=== PATIENT | female | born 1965 | race Caucasian/White ===

== ENCOUNTER 2016-10-13 05:57 | Inpatient (IN) | payer MEDICAID ==
[~2016-10-13 05:57] MED LIST: Lactated Ringers 1,000 ML IV SCH; Lidocaine 1%/Sod Bicarbonate in NS 8.4% 1 ML Syringe IV PRN; Sodium Chloride 0.9% 10 ML Syringe FLUSH PRN
[2016-10-13] MEDS ORDERED: ceFAZolin 1 GM Vial ONE ×2 (06:30→07:47)
[2016-10-13] MEDS ORDERED: Sennosides 8.6 MG Tab PO PRN (06:40)
[2016-10-13] MEDS ORDERED: diphenhydrAMINE 50 MG/ML SDV IVPUSH PRN ×2 (06:40→08:44)
[2016-10-13] MEDS ORDERED: Magnesium Hydroxide 400 MG/5 ML Susp 30 ML Cup PO PRN (06:40)
[2016-10-13] MEDS ORDERED: Naloxone 0.4 MG/ML SDV IVPUSH PRN (06:40)
[2016-10-13] MEDS ORDERED: Ondansetron 4 MG/2 ML SDV IVPUSH PRN ×2 (06:40→08:44)
[2016-10-13] MEDS ORDERED: Bisacodyl 5 MG Tab PO PRN (06:40)
--- NOTE | 2016-10-13 06:59 | PCM.PREANE ---
Preanesthetic Assessment - Procedure Proposed Procedure: Left TKA - Anesthesia/Transfusion/Family Hx Anesthesia History: Prior Anesthesia Without Reaction Type of Anesthesia Reaction: Unknown Family History of Anesthesia Reaction: No Transfusion History: No Prior Transfusion(s) Type of Transfusion Reactions: Reports: Unknown - Review of Systems General: No Symptoms Pulmonary: No Symptoms Cardiovascular: Other (HTN) Neurological: No Symptoms Other: Reports: Depression - Physical Assessment NPO Status Date: 10/12/16 NPO Status Time: 23:00 O2 Sat by Pulse Oximetry: 95 Respiratory Rate: 17 Vital Signs: Last Vital Signs Temp 36.7 C 10/13/16 06:30 Pulse 86 10/13/16 06:30 Resp 17 10/13/16 06:30 BP 145/103 H 10/13/16 06:30 Pulse Ox 95 10/13/16 06:30 Height: 1.7 m Weight: 98.43 kg ASA Class: 2 Mental Status: Alert & Oriented x3 Airway Class: Mallampati = 3 Dentition: Reports: Normal Dentition Thyro-Mental Finger Breadths: 3 Mouth Opening Finger Breadths: 3 ROM/Head Extension: Full Lungs: Clear to auscultation, Normal respiratory effort Cardiovascular: Regular Rate, Regular Rhythm - Allergies Allergies/Adverse Reactions: Allergies Allergy/AdvReac Type Severity Reaction Status Date / Time bee venom protein (honey bee) Allergy Anaphylactic Verified 10/09/16 15:05 Shock - Blood Blood Available: No Product(s) Available: None - Acknowledgements Anesthesia Type Planned: Spinal Pt an Appropriate Candidate for the Planned Anesthesia: Yes Alternatives and Risks of Anesthesia Discussed w Pt/Guardian: Yes Pt/Guardian Understands and Agrees with Anesthesia Plan: Yes PreAnesthesia Questionnaire Cardiovascular History: Reports: Hypertension Respiratory History: Reports: Pneumonia, Recurrent, Other (See Below) Other Respiratory History: cough, mediastinal cyst, lung mass Gastrointestinal History: Reports: None CONDUCTOR FREIGHT History: Reports: , Other (See Below) Other OB/BYN History: hot flashes, menopausal, decreased libido Musculoskeletal History: Reports: Arthritis, Other (See Below) Other Musculoskeletal History: chronic pain, hammertoe L foot, multiple joint pain, low back pain, Neurological History: Reports: None Psychiatric History: Reports: Anxiety, Depression, Other (See Below) Other Psychiatric History: fatigue, insomnia Endocrine/Metabolic History: Reports: Vitamin D Deficiency Hematologic History: Reports: None Immunologic History: Reports: None Oncologic (Cancer) History: Reports: None Dermatologic History: Reports: None - Infectious Disease History Infectious Disease History: Reports: Influenza - Past Surgical History HEENT Surgical History: Reports: Other (See Below) Other HEENT Surgeries/Procedures: simple excision of lingual cyst Respiratory Surgical History: Reports: Thoracotomy Female Surgical History: Reports: Hysterectomy Musculoskeletal Surgical History: Reports: Other (See Below) Other Musculoskeletal Surgeries/Procedures:: left knee ACL and meniscus repair. right foot surgery. - SUBSTANCE USE Smoking Status *Q: Current Every Day Smoker (2-3 cig 20years) Tobacco Use Within Last Twelve Months: Cigarettes Second Hand Smoke Exposure: Yes Days Per Week of Alcohol Use: 4 Number of Drinks Per Day: 3 Total Drinks Per Week: 12 Recreational Drug Use History: No - HOME MEDS Home Medications: Home Meds Multivitamin [One Daily Multivitamin] 1 tab PO DAILY 09/14/13 [History] Albuterol Sulfate [Proair Hfa] 1 - 2 puff INH Q4H PRN 10/09/16 [History] Aspirin/Acetaminophen/Caffeine [Migraine Formula Caplet] 1 tab PO TID PRN [History] Cholecalciferol (Vitamin D3) [Vitamin D3] 50,000 unit PO MO 10/09/16 [History] Folic Acid 1 mg PO DAILY 10/09/16 [History] Naproxen 500 mg PO BID PRN 10/09/16 [History] Venlafaxine HCl [Venlafaxine ER] 37.5 mg PO BID 10/09/16 [History] - CURRENT (IN HOUSE) MEDS Current Meds: Current Medications Aspirin (Ecotrin) 325 mg PO BID [facility] Bisacodyl (Dulcolax) 5 mg PO DAILY PRN PRN Reason: Constipation Morphine Sulfate 8 mg/Epinephrine HCl 0.3 mg/Cefuroxime Sodium 750 mg/Ketorolac Tromethamine 30 mg/Sodium Chloride 27.9 ml 0 mg .XX ONETIME ONE Stop: 10/13/16 14:44 Cyclobenzaprine HCl (Flexeril) 10 mg PO TID PRN PRN Reason: Spasms Diphenhydramine HCl (Benadryl) 25 mg IVPUSH Q4H PRN PRN Reason: Nausea Docusate Sodium (Colace) 100 mg PO BID [facility] Famotidine (Pepcid) 20 mg PO Q12H [facility] Lactated Ringer's (Ringers, Lactated) 1,000 mls @ 125 mls/hr IV ASDIRECTED [facility] Cefazolin Sodium/Dextrose 2 gm (/ Premix) 50 mls @ 100 mls/hr IV Q8H [facility] Stop: 10/13/16 23:29 Lidocaine/Sodium Bicarbonate (Buffered Lidocaine 1% In Ns 8.4%) 0.25 ml IV ONETIME PRN PRN Reason: Prior to IV Start Magnesium Hydroxide (Milk Of Magnesia) 30 ml PO BID PRN PRN Reason: Constipation Morphine Sulfate (Morphine) 2 mg IVPUSH Q2H PRN PRN Reason: Breakthrough Pain Multivitamins (Thera) 1 each PO WITHBREAKFAST [facility] Naloxone HCl (Narcan) 0.1 mg IVPUSH Q5M PRN PRN Reason: Oversedation Stop: 10/13/16 06:56 Ondansetron HCl (Zofran) 4 mg IVPUSH Q6H PRN PRN Reason: Nausea/Vomiting Oxycodone/Acetaminophen (Percocet 325-5 Mg) 1 - 2 tab PO Q4H PRN PRN Reason: Pain Senna (Senna) 8.6 mg PO BID PRN PRN Reason: Constipation Sodium Chloride (Saline Flush) 10 ml FLUSH ASDIRECTED PRN PRN Reason: Keep Vein Open Discontinued Medications Bupivacaine HCl (Marcaine 0.25%) Confirm Administered Dose 30 ml .ROUTE .STK- MED ONE Stop: 10/13/16 06:30 Cefazolin Sodium (Ancef) Confirm Administered Dose 2 gm .ROUTE .STK-MED ONE Stop: 10/13/16 06:30 Cefazolin Sodium (Ancef) Confirm Administered Dose 2 gm .ROUTE .STK-MED ONE Stop: 10/13/16 06:31 Lactated Ringer's (Ringers, Lactated) 1,000 mls @ 125 mls/hr IV ASDIRECTED [facility] Iodine (Iodine 2% Mild Tincture) Confirm Administered Dose 30 ml .ROUTE .STK- MED ONE Stop: 10/13/16 06:30 Lidocaine/Sodium Bicarbonate (Buffered Lidocaine 1% In Ns 8.4%) 0.25 ml IV ONETIME PRN PRN Reason: Prior to IV Start Sodium Chloride (Saline Flush) 10 ml FLUSH ASDIRECTED PRN PRN Reason: Keep Vein Open Tranexamic Acid (Cyklokapron) Confirm Administered Dose 1,000 mg .ROUTE .[facility] ONE Stop: 10/13/16 06:30
[2016-10-13] MEDS ORDERED: ceFAZolin 2 GM in Premix Bag 1 BAG IV SCH (07:00)
[2016-10-13] MEDS ORDERED: Propofol 200 MG/20 ML SDV ONE ×4 (07:16→08:53)
[2016-10-13] MEDS ORDERED: fentaNYL 100 MCG/2 ML SDV ONE ×2 (07:16→08:32)
[2016-10-13] MEDS ORDERED: Morphine PF 10 MG/10 ML SDV ONE (07:16)
[2016-10-13] MEDS ORDERED: Midazolam 1 MG/ML 2 ML SDV ONE (07:16)
[2016-10-13] MEDS ORDERED: ePHEDrine/Normal Saline 25 MG/5 ML Syringe ONE (08:10)
[2016-10-13] MEDS: Iodine/Sodium Iodide 2% Tincture 30 ML Bottle ONE ×2 (08:15→08:33)
[2016-10-13] MEDS: ceFAZolin 1 GM Vial ONE ×2 (08:15→08:37)
[2016-10-13] MEDS: Morphine 8 MG, EPINEPHrine 0.3 MG, Cefuroxime 750 MG, Ketorolac 30 MG, Sodium Chloride ... ONE ×10 (08:16→08:41)
[2016-10-13] MEDS: Bupivacaine 0.25% 30 ML SDV ONE ×2 (08:16→08:42)
[2016-10-13] MEDS ORDERED: Phenylephrine/Normal Saline 100 MCG/ML 10 ML Syringe ONE (08:42)
[2016-10-13] MEDS ORDERED: Meperidine PF 50 MG/ML Syringe IVPUSH PRN (08:44)
[2016-10-13] MEDS ORDERED: fentaNYL 100 MCG/2 ML SDV IVPUSH PRN (08:44)
[2016-10-13] MEDS ORDERED: CHOLECALCIFEROL 50000 UNIT PO SCH (09:00)
[2016-10-13] MEDS ORDERED: Albuterol 6.7 GM Inhaler INH PRN (09:14)
--- NOTE | 2016-10-13 09:28 | PCM.POSTAN ---
POST ANESTHESIA ASSESSMENT - MENTAL STATUS Mental Status: alert, oriented - VITAL SIGNS Pulse Rate: 75 SaO2: 100 Resp Rate: 18 Blood Pressure: 112/63 Temperature: 36.6 C - RESPIRATORY Respiratory Status: respiratory rate WNL, airway patent, O2 saturation stable, supplemental oxygen - CARDIOVASCULAR CV Status: pulse rate WNL, blood pressure stable - GASTROINTESTINAL GI Status: no symptoms - PAIN Pain Score: 0 - POST OP HYDRATION Hydration Status: adequate & stable
[2016-10-13] MEDS: Acetaminophen/oxyCODONE 325-5 MG Tab PO PRN ×4 (11:51→23:53)
[2016-10-13] MEDS: Cyclobenzaprine 10 MG Tab PO PRN ×2 (11:53→18:07)
[2016-10-13] MEDS ORDERED: Pneumococcal Polyvalent-23 Vaccine 0.5 ML SDV IM ONE (12:00)
--- NOTE | 2016-10-13 13:11 | CR ---
Left knee: AP and lateral views of the left knee were obtained. Comparison: Previous left knee study of 05/19/16. Knee prosthesis is seen. Components are aligned. Underlying bony structures are intact. Soft tissue air and air within the joint is seen which is compatible with the surgical procedure. Impression: 1. Satisfactory appearance of recently placed left knee prosthesis. Diagnostic code #2
--- NOTE | 2016-10-13 13:38 | PCM.CONSN ---
- General Info Date of Service: 10/13/16 Admission Dx/Problem (Free Text): 51 year old middle aged female with bilateral knee pain. Today is s/p left total knee arthroplasty. Complains of mild pain, has recent taken a pain med for relief. Hospitalist service will help manage general medical needs. Functional Status: Reports: pain controlled, tolerating diet, ambulating, urinating - Review of Systems General: Reports: No Symptoms HEENT: Reports: no symptoms Pulmonary: Reports: no symptoms Cardiovascular: Reports: No Symptoms Gastrointestinal: Reports: No symptoms Genitourinary: Reports: no symptoms Musculoskeletal: Reports: no symptoms Skin: Reports: no symptoms Neurological: Reports: No Symptoms Psychiatric: Reports: no symptoms - Patient Data Vitals - most recent: Last Vital Signs Temp 36.6 C 10/13/16 11:57 Pulse 99 10/13/16 11:57 Resp 15 10/13/16 11:57 BP 135/83 10/13/16 11:57 Pulse Ox 100 10/13/16 12:00 Weight - most recent: 98.43 kg I&O - last 24 hours: Intake & Output 10/12/16 10/13/16 10/13/16 22:59 06:59 14:59 Intake Total 700 Output Total 550 Balance 150 Med Orders - Current: Current Medications Albuterol (Proventil Hfa) 1 - 2 gm INH Q4H PRN PRN Reason: Shortness of Breath Aspirin (Ecotrin) 325 mg PO BID [facility] Bisacodyl (Dulcolax) 5 mg PO DAILY PRN PRN Reason: Constipation Cyclobenzaprine HCl (Flexeril) 10 mg PO TID PRN PRN Reason: Spasms Last Admin: 10/13/16 11:53 Dose: 10 mg Diphenhydramine HCl (Benadryl) 25 mg IVPUSH Q4H PRN PRN Reason: Nausea Last Admin: 10/13/16 09:43 Dose: 25 mg Docusate Sodium (Colace) 100 mg PO BID [facility] Famotidine (Pepcid) 20 mg PO Q12H [facility] Folic Acid (Folic Acid) 1 mg PO DAILY [facility] Lactated Ringer's (Ringers, Lactated) 1,000 mls @ 125 mls/hr IV ASDIRECTED [facility] Stop: 10/13/16 23:00 Last Admin: 10/13/16 06:45 Dose: 125 mls/hr Cefazolin Sodium/Dextrose 2 gm (/ Premix) 50 mls @ 100 mls/hr IV Q8H [facility] Stop: 10/14/16 07:29 Magnesium Hydroxide (Milk Of Magnesia) 30 ml PO BID PRN PRN Reason: Constipation Morphine Sulfate (Morphine) 2 mg IVPUSH Q2H PRN PRN Reason: Breakthrough Pain Ondansetron HCl (Zofran) 4 mg IVPUSH Q6H PRN PRN Reason: Nausea/Vomiting Oxycodone/Acetaminophen (Percocet 325-5 Mg) 1 - 2 tab PO Q4H PRN PRN Reason: Pain Last Admin: 10/13/16 11:51 Dose: 2 tab Cholecalciferol [ Vitamin D3] 50,000 Unit 0 each PO Mo@0900 [facility] Senna (Senna) 8.6 mg PO BID PRN PRN Reason: Constipation Venlafaxine HCl (Effexor Xr) 75 mg PO DAILY [facility] Discontinued Medications Bupivacaine HCl (Marcaine 0.25%) Confirm Administered Dose 30 ml .ROUTE .STK- MED ONE Stop: 10/13/16 06:30 Last Admin: 10/13/16 08:42 Dose: 30 ml Cefazolin Sodium (Ancef) Confirm Administered Dose 2 gm .ROUTE .STK-MED ONE Stop: 10/13/16 06:30 Last Admin: 10/13/16 08:37 Dose: 2 gm Cefazolin Sodium (Ancef) Confirm Administered Dose 2 gm .ROUTE .STK-MED ONE Stop: 10/13/16 06:31 Cefazolin Sodium (Ancef) Confirm Administered Dose 2 gm .ROUTE .STK-MED ONE Stop: 10/13/16 07:48 Morphine Sulfate 8 mg/Epinephrine HCl 0.3 mg/Cefuroxime Sodium 750 mg/Ketorolac Tromethamine 30 mg/Sodium Chloride 27.9 ml 0 mg .XX ONETIME ONE Stop: 10/13/16 07:46 Last Admin: 10/13/16 08:41 Dose: 788.3 mg Diphenhydramine HCl (Benadryl) 25 mg IVPUSH Q6H PRN PRN Reason: Pruritis Stop: 10/13/16 12:00 Ephedrine Sulfate (Ephedrine In Ns) Confirm Administered Dose 25 mg .ROUTE .STK- MED ONE Stop: 10/13/16 08:11 Fentanyl (Sublimaze) Confirm Administered Dose 100 mcg .ROUTE .STK-MED ONE Stop: 10/13/16 07:17 Fentanyl (Sublimaze) Confirm Administered Dose 100 mcg .ROUTE .STK-MED ONE Stop: 10/13/16 08:33 Fentanyl (Sublimaze) 50 mcg IVPUSH Q5M PRN PRN Reason: Pain Stop: 10/13/16 09:00 Lactated Ringer's (Ringers, Lactated) 1,000 mls @ 125 mls/hr IV ASDIRECTED [facility] Cefazolin Sodium/Dextrose 2 gm (/ Premix) 50 mls @ 100 mls/hr IV Q8H [facility] Stop: 10/13/16 23:29 Iodine (Iodine 2% Mild Tincture) Confirm Administered Dose 30 ml .ROUTE .STK- MED ONE Stop: 10/13/16 06:30 Last Admin: 10/13/16 08:33 Dose: 18 ml Lidocaine/Sodium Bicarbonate (Buffered Lidocaine 1% In Ns 8.4%) 0.25 ml IV ONETIME PRN PRN Reason: Prior to IV Start Lidocaine/Sodium Bicarbonate (Buffered Lidocaine 1% In Ns 8.4%) 0.25 ml IV ONETIME PRN PRN Reason: Prior to IV Start Stop: 10/13/16 12:00 Last Admin: 10/13/16 06:45 Dose: 0.25 ml Meperidine HCl (Demerol) 12.5 mg IVPUSH ONETIME PRN PRN Reason: Shivering Stop: 10/13/16 12:00 Midazolam HCl (Versed 1 Mg/Ml) Confirm Administered Dose 2 mg .ROUTE .STK-MED ONE Stop: 10/13/16 07:17 Morphine Sulfate (Duramorph Pf) Confirm Administered Dose 10 mg .ROUTE .STK-MED ONE Stop: 10/13/16 07:17 Multivitamins (Thera) 1 each PO WITHBREAKFAST [facility] Naloxone HCl (Narcan) 0.1 mg IVPUSH Q5M PRN PRN Reason: Oversedation Stop: 10/13/16 06:56 Non-Formulary Medication (Multivitamin) 1 tab PO DAILY [facility] Ondansetron HCl (Zofran) 4 mg IVPUSH ONETIME PRN PRN Reason: Nausea/Vomiting Stop: 10/13/16 12:00 Phenylephrine HCl (Phenylephrine In Ns 100 Mcg/Ml) Confirm Administered Dose 1 mg .ROUTE .STK-MED ONE Stop: 10/13/16 08:43 Pneumococcal Polyvalent Vaccine (Pneumovax 23) 0.5 ml IM .ONCE ONE Stop: 10/13/16 12:01 Propofol (Diprivan 20 Ml) Confirm Administered Dose 400 mg .ROUTE .STK-MED ONE Stop: 10/13/16 07:17 Propofol (Diprivan 20 Ml) Confirm Administered Dose 200 mg .ROUTE .STK-MED ONE Stop: 10/13/16 08:20 Propofol (Diprivan 20 Ml) Confirm Administered Dose 200 mg .ROUTE .STK-MED ONE Stop: 10/13/16 08:39 Propofol (Diprivan 20 Ml) Confirm Administered Dose 200 mg .ROUTE .STK-MED ONE Stop: 10/13/16 08:54 Sodium Chloride (Saline Flush) 10 ml FLUSH ASDIRECTED PRN PRN Reason: Keep Vein Open Sodium Chloride (Saline Flush) 10 ml FLUSH ASDIRECTED PRN PRN Reason: Keep Vein Open Stop: 10/13/16 12:00 Tranexamic Acid (Cyklokapron) Confirm Administered Dose 1,000 mg .ROUTE .STK- MED ONE Stop: 10/13/16 06:30 Last Admin: 10/13/16 08:51 Dose: 1,000 mg - Exam Quality Assessment: DVT prophylaxis General: alert, oriented HEENT: Pupils equal, Pupils reactive, EOMI Neck: supple, trachea midline, no JVD Lungs: Clear to auscultation, Normal respiratory effort Cardiovascular: Regular Rate, Regular Rhythm Abdomen: bowel sounds present, soft, no tenderness, no distension (Female) Exam: Deferred Back Exam: Normal Inspection Extremities: no edema, normal pulses Skin: warm, dry Wound/Incisions: dressing dry and intact Neurological: no new focal deficit, normal speech Psy/Mental Status: alert, normal affect, normal mood Consult PN Assessment/Plan POD#: 0 Procedures: Procedures ANTINUCLEAR ANTIBODIES (02/29/16) ASSAY ALKALINE PHOSPHATASE (03/03/16) ASSAY OF CREATININE (07/27/13) ASSAY OF FERRITIN (10/03/16) ASSAY OF FREE THYROXINE (02/29/16) ASSAY OF IRON (09/03/16) ASSAY OF PREALBUMIN (10/03/16) ASSAY OF SERUM ALBUMIN (10/03/16) ASSAY OF TRANSFERRIN (09/03/16) ASSAY THYROID STIM HORMONE (09/03/16) BLOOD TYPING SEROLOGIC ABO (07/27/13) BLOOD TYPING SEROLOGIC RH(D) (07/27/13) C-REACTIVE PROTEIN (02/29/16) CCP ANTIBODY (02/29/16) CHEST X-RAY 2VW FRONTAL&LATL (10/03/16) CHORIONIC GONADOTROPIN ASSAY (07/27/13) COMPLETE CBC AUTOMATED (10/03/16) COMPLETE CBC W/AUTO DIFF WBC (07/07/16) COMPREHEN METABOLIC PANEL (07/07/16) CT THORAX W/DYE (07/07/16) CULTURE SCREEN ONLY (06/30/16) EMERGENCY DEPT VISIT (05/21/16) FLUOROSCOPE EXAMINATION (09/15/13) INFLUENZA ASSAY W/OPTIC (06/30/16) LYME DISEASE ANTIBODY (03/03/16) METABOLIC PANEL TOTAL CA (10/03/16) MR-STAPH DNA AMP PROBE (10/02/16) PROTHROMBIN TIME (10/03/16) RBC ANTIBODY SCREEN (07/27/13) RBC SED RATE AUTOMATED (02/29/16) REMOVAL OF ANKLE/HEEL LESION (09/15/13) REPAIR BLADDER DEFECT (07/29/13) REPAIR OF LEG TENDON EACH (09/15/13) RHEUMATOID FACTOR TEST QUAL (02/29/16) ROUTINE VENIPUNCTURE (09/03/16) STREP A AG IA (06/30/16) THROMBOPLASTIN TIME PARTIAL (10/03/16) TISSUE EXAM BY PATHOLOGIST (07/29/13) URINALYSIS AUTO W/SCOPE (10/03/16) VAGINAL HYSTERECTOMY (07/29/13) VITAMIN B-12 (09/03/16) VITAMIN D 25 HYDROXY (09/03/16) X-RAY EXAM L-S SPINE 2/3 VWS (02/29/16) X-RAY EXAM OF KNEE 3 (05/19/16) X-RAY EXAM OF PELVIS (02/29/16) (1) Depression SNOMED Code(s): 36267776 Code(s): F32.9 - MAJOR DEPRESSIVE DISORDER, SINGLE EPISODE, UNSPECIFIED Current Visit: Yes (2) Hypertension SNOMED Code(s): 81306640 Code(s): I10 - ESSENTIAL (PRIMARY) HYPERTENSION Current Visit: Yes (3) Vitamin D deficiency SNOMED Code(s): 91600188 Code(s): E55.9 - VITAMIN D DEFICIENCY, UNSPECIFIED Current Visit: Yes (4) Lung mass SNOMED Code(s): 841015845 Code(s): R91.8 - OTHER NONSPECIFIC ABNORMAL FINDING OF LUNG FIELD Current Visit: Yes Problem List Initiated/Reviewed/Updated: Yes Plan: Impression: Left knee pain, S/P left knee arthroplasty POD 0 Chronic Obesity Vitamin D Deficiency Hypertension History of right sided lung mass Plan: Pain mgt Home meds Daily Labs Pulmonary toilet/IS as directed for post op use DVT prophylaxis Pt/OT/SW consult post op
[2016-10-13] MEDS: ceFAZolin 2 GM in Premix Bag 1 BAG IV SCH ×2 (15:11→23:23)
[2016-10-13] MEDS: Famotidine 20 MG Tab PO SCH ×2 (19:01→19:14)
[2016-10-13] MEDS: Morphine 2 MG/ML Syringe IVPUSH PRN ×2 (19:02→22:56)
[2016-10-13] MEDS: Docusate Sodium 100 MG Cap PO SCH (21:41)
--- NOTE | 2016-10-13 22:08 | PCM.OPNOTE ---
- General Post-Op/Procedure Note Date of Surgery/Procedure: 10/13/16 Operative Procedure(s): left knee deep hardware removal with left total knee arthroplasty Pre Op Diagnosis: left knee deep hardware with knee osteoarthrosis Post-Op Diagnosis: Same Anesthesia Technique: Local, MAC, Spinal Primary Surgeon: Washington Rossi Anesthesia Provider: Ravindra Long Veneer Jointer Helper: Angela Woods Veneer Jointer Helper: Nickie Bruce EBL in mLs: 350 Complications: None Condition: Good Free Text/Narrative:: Intake & Output 10/13/16 10/13/16 10/13/16 06:59 14:59 22:59 Intake Total 700 1250 Output Total 1075 200 Balance -375 1050
--- NOTE | 2016-10-13 22:52 | OR ---
DATE OF OPERATION: 10/13/2016 SURGEON: Washington Rossi MD PREOPERATIVE DIAGNOSIS: Left knee deep hardware with knee osteoarthrosis. POSTOPERATIVE DIAGNOSIS: Left knee deep hardware with knee osteoarthrosis. OPERATION PERFORMED: Left knee deep hardware removal with total knee osteoarthrosis. ANESTHESIA: Local MAC and spinal. ANESTHESIA PROVIDER: Ravindra Long. CAB DRIVER: Angela Woods PA-C and Nickie Bruce LPN. ESTIMATED BLOOD LOSS: 350 mL. COMPLICATIONS: None. CONDITION: Stable. IMPLANTS: 1. [place] size 5 PS femur. 2. Gabriel size 4 [place] tibial base plate. 3. [place] size 4, 9 mm PS X3 polyethylene. 4. Gabriel size 32 x 10 mm asymmetric patella. DESCRIPTION OF PROCEDURE: The patient was identified in the preop holding area. Proper site was marked and identified by the surgeon. The patient was taken back to the operating theater where after adequate anesthesia, the patient's left lower extremity had a nonsterile tourniquet applied and was then sterilely prepped and draped in the usual sterile fashion. OR time-out was performed. The patient received 2 g IV Ancef. The left lower extremity was exsanguinated and insufflated to 300 mmHg. Standard medial parapatellar incision was made. Medial parapatellar arthrotomy was created. Deep fibers of the MCL were raised and the anterior fat pad was resected. Attention was turned to the patella. Patella measured a 24 and resected to 14 for a 32 x 10 mm patella. Drill holes were then drilled and found to be in satisfactory position. Intramedullary drill holes were placed in the distal femur. The intramedullary distal femoral cutting guide was then placed. An 8 mm was resected off the distal femur. This was found to be an adequate resection. Sizing guide was then placed. This was found to be a size 5 PS femur. Epicondylar axis holes were then drilled using Chris line and epicondyles as reference. A 4 in 1 cutting block was then placed. Anterior posterior and anterior and posterior chamfer cuts were then completed and found to be adequate. The box cut was then placed and the box cut was completed. While we were doing the box cut, it was found that we ran into the femoral side of the screw at this time, the hardware was removed and there was no large defect noted. Attention was turned to the tibia and posterior mediolateral retractors were placed. The extramedullary tibial cutting guide was then placed and aligned with the 2nd ray. Wharton was set for roughly 5 degrees. At this time, 9 mm resected off the unaffected lateral side and the resection was carried out. It was found to be an adequate resection. Posterior osteophytes were removed along with medial lateral meniscus. The size 4 tibial baseplate was found to have adequate coverage, this was stamped in the proper rotation. Trial components were then placed. The patient had full extension and flexion with the patella tracking centrally. The patient was noted to have a little patellar tilt though and a lateral retinacular release was then done. At this time, cement was mixed on the back table. All cut surfaces were irrigated and pulse lavage irrigation with Ancef and then completely dried. A size 4 Gabriel universal tibial base plate was then cemented into place. The size 5 PS femur cemented into place. A 9 mm PS X3 polyethylene was placed. The patient's knee was brought in full extension. All excess cement was removed and the patella was cemented into place. Tourniquet was deflated. 1 L dilute Betadine solution was irrigated through the knee along with 3 L pulse lavage irrigation with Ancef. Note that while we stamped and drilled the tibial tray, we ran into the other screw and we were able to remove that extramedullarly and intramedullarly as well. Once the cement had cured, periarticular injection was completed. All excess cement was removed and #2 barbed suture was used for closure at the medial parapatellar arthrotomy. Topical tranexamic acid was placed. 2-0 Vicryl was used subcutaneously. Running Monocryl was used and along with Prineo, patient had a sterile soft dressing applied. The patient was sent to PACU in stable condition. MMODAL /[id number] SEBASTIAN
[2016-10-13] MEDS ORDERED: Ketorolac 15 MG/ML SDV IVPUSH ONE (23:12)
[2016-10-13] MEDS: oxyCODONE 5 MG Tab PO PRN (23:41)
[2016-10-13] MEDS: LORazepam 0.5 MG Tab PO PRN (23:52)
[2016-10-14] MEDS: Acetaminophen/oxyCODONE 325-5 MG Tab PO PRN ×5 (04:07→22:59)
[2016-10-14] MEDS: LORazepam 0.5 MG Tab PO PRN ×3 (04:13→15:00)
[2016-10-14] MEDS: Morphine 8 MG, EPINEPHrine 0.3 MG, Cefuroxime 750 MG, Ketorolac 30 MG, Sodium Chloride ... ONE ×5 (04:17)
[2016-10-14] MEDS: oxyCODONE 5 MG Tab PO PRN ×2 (05:50→11:35)
[2016-10-14] MEDS: Famotidine 20 MG Tab PO SCH ×2 (06:44→18:55)
[2016-10-14] MEDS: ceFAZolin 2 GM in Premix Bag 1 BAG IV SCH (06:52)
[2016-10-14] MEDS ORDERED: Multivitamins,Therapeutic Tab PO SCH (07:00)
--- NOTE | 2016-10-14 07:05 | PCM.CONSN ---
- General Info Date of Service: 10/14/16 Admission Dx/Problem (Free Text): POD #1 rt TKA, with Dr. Rossi Pain not well controlled- still requiring IV morphine this morning, no nausea. Working with PT, doing well other than pain. Still on supplemental oxygen as drops to 88-89% with sleeping. Functional Status: Reports: tolerating diet, ambulating, urinating. Denies: pain controlled, new symptoms - Review of Systems General: Reports: No Symptoms HEENT: Reports: no symptoms Pulmonary: Reports: no symptoms Cardiovascular: Reports: No Symptoms Gastrointestinal: Reports: No symptoms Genitourinary: Reports: no symptoms Musculoskeletal: Reports: leg pain Skin: Reports: no symptoms Neurological: Reports: No Symptoms Psychiatric: Reports: no symptoms - Patient Data Vitals - most recent: Last Vital Signs Temp 99.5 F 10/14/16 00:20 Pulse 75 10/14/16 00:21 Resp 14 10/14/16 00:20 BP 119/63 10/14/16 00:20 Pulse Ox 95 10/14/16 06:00 Weight - most recent: 217 lb I&O - last 24 hours: Intake & Output 10/13/16 10/14/16 10/14/16 22:59 06:59 14:59 Intake Total 1850 1350 Output Total 350 1850 Balance 1500 -500 Med Orders - Current: Current Medications Albuterol (Proventil Hfa) 1 - 2 gm INH Q4H PRN PRN Reason: Shortness of Breath Aspirin (Ecotrin) 325 mg PO BID [facility] Bisacodyl (Dulcolax) 5 mg PO DAILY PRN PRN Reason: Constipation Cyclobenzaprine HCl (Flexeril) 10 mg PO TID PRN PRN Reason: Spasms Last Admin: 10/13/16 18:07 Dose: 10 mg Diphenhydramine HCl (Benadryl) 25 mg IVPUSH Q4H PRN PRN Reason: Nausea Last Admin: 10/13/16 09:43 Dose: 25 mg Docusate Sodium (Colace) 100 mg PO BID [facility] Last Admin: 10/13/16 21:41 Dose: 100 mg Famotidine (Pepcid) 20 mg PO Q12H [facility] Last Admin: 10/13/16 19:14 Dose: Not Given Folic Acid (Folic Acid) 1 mg PO DAILY [facility] Cefazolin Sodium/Dextrose 2 gm (/ Premix) 50 mls @ 100 mls/hr IV Q8H [facility] Stop: 10/14/16 07:29 Last Admin: 10/13/16 23:23 Dose: 100 mls/hr Lorazepam (Ativan) 0.5 mg PO Q4H PRN PRN Reason: Anxiety Last Admin: 10/14/16 04:13 Dose: 0.5 mg Magnesium Hydroxide (Milk Of Magnesia) 30 ml PO BID PRN PRN Reason: Constipation Morphine Sulfate (Morphine) 2 mg IVPUSH Q2H PRN PRN Reason: Breakthrough Pain Last Admin: 10/13/16 22:56 Dose: 1 mg Ondansetron HCl (Zofran) 4 mg IVPUSH Q6H PRN PRN Reason: Nausea/Vomiting Oxycodone HCl (Oxycodone) 5 mg PO Q6H PRN PRN Reason: Pain (severe 7-10) Last Admin: 10/14/16 05:50 Dose: 5 mg Oxycodone/Acetaminophen (Percocet 325-5 Mg) 1 - 2 tab PO Q4H PRN PRN Reason: Pain Last Admin: 10/14/16 04:07 Dose: 2 tab Cholecalciferol [ Vitamin D3] 50,000 Unit 0 each PO Mo@0900 [facility] Last Admin: 10/13/16 15:18 Dose: Not Given Senna (Senna) 8.6 mg PO BID PRN PRN Reason: Constipation Venlafaxine HCl (Effexor Xr) 75 mg PO DAILY [facility] Discontinued Medications Bupivacaine HCl (Marcaine 0.25%) Confirm Administered Dose 30 ml .ROUTE .STK- MED ONE Stop: 10/13/16 06:30 Last Admin: 10/13/16 08:42 Dose: 30 ml Cefazolin Sodium (Ancef) Confirm Administered Dose 2 gm .ROUTE .STK-MED ONE Stop: 10/13/16 06:30 Last Admin: 10/13/16 08:37 Dose: 2 gm Cefazolin Sodium (Ancef) Confirm Administered Dose 2 gm .ROUTE .STK-MED ONE Stop: 10/13/16 06:31 Cefazolin Sodium (Ancef) Confirm Administered Dose 2 gm .ROUTE .STK-MED ONE Stop: 10/13/16 07:48 Morphine Sulfate 8 mg/Epinephrine HCl 0.3 mg/Cefuroxime Sodium 750 mg/Ketorolac Tromethamine 30 mg/Sodium Chloride 27.9 ml 0 mg .XX ONETIME ONE Stop: 10/13/16 07:46 Last Admin: 10/14/16 04:17 Dose: Not Given Diphenhydramine HCl (Benadryl) 25 mg IVPUSH Q6H PRN PRN Reason: Pruritis Stop: 10/13/16 12:00 Ephedrine Sulfate (Ephedrine In Ns) Confirm Administered Dose 25 mg .ROUTE .STK- MED ONE Stop: 10/13/16 08:11 Fentanyl (Sublimaze) Confirm Administered Dose 100 mcg .ROUTE .STK-MED ONE Stop: 10/13/16 07:17 Fentanyl (Sublimaze) Confirm Administered Dose 100 mcg .ROUTE .STK-MED ONE Stop: 10/13/16 08:33 Fentanyl (Sublimaze) 50 mcg IVPUSH Q5M PRN PRN Reason: Pain Stop: 10/13/16 09:00 Lactated Ringer's (Ringers, Lactated) 1,000 mls @ 125 mls/hr IV ASDIRECTED [facility] Lactated Ringer's (Ringers, Lactated) 1,000 mls @ 125 mls/hr IV ASDIRECTED [facility] Stop: 10/13/16 23:00 Last Admin: 10/13/16 06:45 Dose: 125 mls/hr Cefazolin Sodium/Dextrose 2 gm (/ Premix) 50 mls @ 100 mls/hr IV Q8H [facility] Stop: 10/13/16 23:29 Last Admin: 10/14/16 04:17 Dose: Not Given Iodine (Iodine 2% Mild Tincture) Confirm Administered Dose 30 ml .ROUTE .STK- MED ONE Stop: 10/13/16 06:30 Last Admin: 10/13/16 08:33 Dose: 18 ml Ketorolac Tromethamine (Toradol) 15 mg IVPUSH ONETIME ONE Stop: 10/13/16 23:13 Last Admin: 10/13/16 23:35 Dose: 15 mg Lidocaine/Sodium Bicarbonate (Buffered Lidocaine 1% In Ns 8.4%) 0.25 ml IV ONETIME PRN PRN Reason: Prior to IV Start Lidocaine/Sodium Bicarbonate (Buffered Lidocaine 1% In Ns 8.4%) 0.25 ml IV ONETIME PRN PRN Reason: Prior to IV Start Stop: 10/13/16 12:00 Last Admin: 10/13/16 06:45 Dose: 0.25 ml Meperidine HCl (Demerol) 12.5 mg IVPUSH ONETIME PRN PRN Reason: Shivering Stop: 10/13/16 12:00 Midazolam HCl (Versed 1 Mg/Ml) Confirm Administered Dose 2 mg .ROUTE .STK-MED ONE Stop: 10/13/16 07:17 Morphine Sulfate (Duramorph Pf) Confirm Administered Dose 10 mg .ROUTE .STK-MED ONE Stop: 10/13/16 07:17 Multivitamins (Thera) 1 each PO WITHBREAKFAST GWEN Naloxone HCl (Narcan) 0.1 mg IVPUSH Q5M PRN PRN Reason: Oversedation Stop: 10/13/16 06:56 Non-Formulary Medication (Multivitamin) 1 tab PO DAILY [facility] Ondansetron HCl (Zofran) 4 mg IVPUSH ONETIME PRN PRN Reason: Nausea/Vomiting Stop: 10/13/16 12:00 Phenylephrine HCl (Phenylephrine In Ns 100 Mcg/Ml) Confirm Administered Dose 1 mg .ROUTE .STK-MED ONE Stop: 10/13/16 08:43 Pneumococcal Polyvalent Vaccine (Pneumovax 23) 0.5 ml IM .ONCE ONE Stop: 10/13/16 12:01 Propofol (Diprivan 20 Ml) Confirm Administered Dose 400 mg .ROUTE .STK-MED ONE Stop: 10/13/16 07:17 Propofol (Diprivan 20 Ml) Confirm Administered Dose 200 mg .ROUTE .STK-MED ONE Stop: 10/13/16 08:20 Propofol (Diprivan 20 Ml) Confirm Administered Dose 200 mg .ROUTE .STK-MED ONE Stop: 10/13/16 08:39 Propofol (Diprivan 20 Ml) Confirm Administered Dose 200 mg .ROUTE .STK-MED ONE Stop: 10/13/16 08:54 Sodium Chloride (Saline Flush) 10 ml FLUSH ASDIRECTED PRN PRN Reason: Keep Vein Open Sodium Chloride (Saline Flush) 10 ml FLUSH ASDIRECTED PRN PRN Reason: Keep Vein Open Stop: 10/13/16 12:00 Tranexamic Acid (Cyklokapron) Confirm Administered Dose 1,000 mg .ROUTE .STK- MED ONE Stop: 10/13/16 06:30 Last Admin: 10/13/16 08:51 Dose: 1,000 mg - Exam Quality Assessment: DVT prophylaxis General: alert, oriented, cooperative, no acute distress HEENT: Pupils equal, Pupils reactive, EOMI, Mucous membr. moist/pink Neck: supple Lungs: Clear to auscultation, Normal respiratory effort Cardiovascular: Regular Rate, Regular Rhythm Abdomen: bowel sounds present, soft, no tenderness, no distension (Female) Exam: Deferred Extremities: other Peripheral Pulses: 2+: Dorsalis Pedis (L), Dorsalis Pedis (R) Skin: warm, dry Neurological: no new focal deficit Psy/Mental Status: alert, normal affect, normal mood Consult PN Assessment/Plan POD#: 1 Procedures: Procedures ANTINUCLEAR ANTIBODIES (02/29/16) ASSAY ALKALINE PHOSPHATASE (03/03/16) ASSAY OF CREATININE (07/27/13) ASSAY OF FERRITIN (10/03/16) ASSAY OF FREE THYROXINE (02/29/16) ASSAY OF IRON (09/03/16) ASSAY OF PREALBUMIN (10/03/16) ASSAY OF SERUM ALBUMIN (10/03/16) ASSAY OF TRANSFERRIN (09/03/16) ASSAY THYROID STIM HORMONE (09/03/16) BLOOD TYPING SEROLOGIC ABO (07/27/13) BLOOD TYPING SEROLOGIC RH(D) (07/27/13) C-REACTIVE PROTEIN (02/29/16) CCP ANTIBODY (02/29/16) CHEST X-RAY 2VW FRONTAL&LATL (10/03/16) CHORIONIC GONADOTROPIN ASSAY (07/27/13) COMPLETE CBC AUTOMATED (10/03/16) COMPLETE CBC W/AUTO DIFF WBC (07/07/16) COMPREHEN METABOLIC PANEL (07/07/16) CT THORAX W/DYE (07/07/16) CULTURE SCREEN ONLY (06/30/16) EMERGENCY DEPT VISIT (05/21/16) FLUOROSCOPE EXAMINATION (09/15/13) INFLUENZA ASSAY W/OPTIC (06/30/16) LYME DISEASE ANTIBODY (03/03/16) METABOLIC PANEL TOTAL CA (10/03/16) MR-STAPH DNA AMP PROBE (10/02/16) PROTHROMBIN TIME (10/03/16) RBC ANTIBODY SCREEN (07/27/13) RBC SED RATE AUTOMATED (02/29/16) REMOVAL OF ANKLE/HEEL LESION (09/15/13) REPAIR BLADDER DEFECT (07/29/13) REPAIR OF LEG TENDON EACH (09/15/13) RHEUMATOID FACTOR TEST QUAL (02/29/16) ROUTINE VENIPUNCTURE (09/03/16) STREP A AG IA (06/30/16) THROMBOPLASTIN TIME PARTIAL (10/03/16) TISSUE EXAM BY PATHOLOGIST (07/29/13) URINALYSIS AUTO W/SCOPE (10/03/16) VAGINAL HYSTERECTOMY (07/29/13) VITAMIN B-12 (09/03/16) VITAMIN D 25 HYDROXY (09/03/16) X-RAY EXAM L-S SPINE 2/3 VWS (02/29/16) X-RAY EXAM OF KNEE 3 (05/19/16) X-RAY EXAM OF PELVIS (02/29/16) (1) S/P total knee arthroplasty SNOMED Code(s): 0988366703808, 220498602, 9342073271613 Code(s): Z96.659 - PRESENCE OF UNSPECIFIED ARTIFICIAL KNEE JOINT Priority: High Current Visit: Yes Qualifiers: Laterality: right Qualified Code(s): Z96.651 - Presence of right artificial knee joint (2) Osteoarthritis SNOMED Code(s): 850735468 Code(s): M19.90 - UNSPECIFIED OSTEOARTHRITIS, UNSPECIFIED SITE Priority: High Current Visit: Yes Qualifiers: Osteoarthritis location: knee Osteoarthritis type: primary Laterality: right Qualified Code(s): M17.11 - Unilateral primary osteoarthritis, right knee (3) Lung mass SNOMED Code(s): 006277552 Code(s): R91.8 - OTHER NONSPECIFIC ABNORMAL FINDING OF LUNG FIELD Priority : Medium Current Visit: No (4) Depression SNOMED Code(s): 34622888 Code(s): F32.9 - MAJOR DEPRESSIVE DISORDER, SINGLE EPISODE, UNSPECIFIED Priority: Medium Current Visit: No Qualifiers: Depression Type: unspecified Qualified Code(s): F32.9 - Major depressive disorder, single episode, unspecified (5) Hypertension SNOMED Code(s): 29166305 Code(s): I10 - ESSENTIAL (PRIMARY) HYPERTENSION Priority: Medium Current Visit: No Qualifiers: Hypertension type: essential hypertension Qualified Code(s): I10 - Essential (primary) hypertension (6) Vitamin D deficiency SNOMED Code(s): 64564693 Code(s): E55.9 - VITAMIN D DEFICIENCY, UNSPECIFIED Priority: Medium Current Visit: No Problem List Initiated/Reviewed/Updated: Yes My Orders last 24 hours: My Active Orders 10/14/16 09:00 Venlafaxine [Effexor XR] 75 mg PO DAILY Plan: I/P: S/P Rt TKA, POD #1, Dr. Rossi -DVT prophylax and pain managment per primary team--pain not well controlled this morning -PT/OT -RT/IS -Hgb: 11.8 -VSS Chronic conditions: HTN- stable Hx lung mass resection- doing well from respiratory standpoint Depression- cont home meds Hypovitaminosis D- cont supplement Other: PT/OT CM/SW for assist with DC planning-plans home with family care today vs tomorrow pending pain control and therapies GI/DVT prophylax Patient is Full Code
[2016-10-14] MEDS: Aspirin 325 MG Tab.EC PO SCH ×2 (08:10→21:01)
[2016-10-14] MEDS: Venlafaxine 75 MG Cap.ER PO SCH (08:10)
[2016-10-14] MEDS: Folic Acid 1 MG Tab PO SCH (08:10)
[2016-10-14] MEDS: Cyclobenzaprine 10 MG Tab PO PRN ×2 (08:10→16:28)
[2016-10-14] MEDS: Docusate Sodium 100 MG Cap PO SCH ×2 (08:10→21:01)
--- NOTE | 2016-10-14 08:18 | PCM48HPAN ---
Post Anesthesia Note - EVALUATION WITHIN 48HRS OF ANESTHETIC Vital Signs in Normal Range: Yes Patient Participated in Evaluation: Yes Respiratory Function Stable: Yes Airway Patent: Yes Cardiovascular Function Stable: Yes Hydration Status Stable: Yes Pain Control Satisfactory: No Nausea and Vomiting Control Satisfactory: Yes Mental Status Recovered: Yes - COMMENTS/OBSERVATIONS Free Text/Narrative:: Patient stated she did not get much sleep last night due to pain. Denies any headaches, residual N/T from spinal, fever, chills, or back pain. Her only complaint was the knee pain and the waiting period to get pain medications. Patient was in good spirits and pleased with her anesthetic.
[2016-10-14] MEDS ORDERED: MULTIVITAMIN PO SCH (09:00)
[2016-10-14] MEDS ORDERED: Venlafaxine 75 MG Cap.ER PO SCH (09:00)
[2016-10-14] MEDS ORDERED: Ketorolac 15 MG/ML SDV IVPUSH ONE (10:15)
[2016-10-14] MEDS: Morphine 2 MG/ML Syringe IVPUSH PRN (10:21)
--- NOTE | 2016-10-14 13:09 | PCM.SURGPN ---
- General Info Date of Service: 10/14/16 POD#: 1 Functional Status: Reports: tolerating diet, ambulating, urinating, other (The pt's pain has been difficult to control.). Denies: new symptoms - Review of Systems Musculoskeletal: Reports: other (Mod swelling left knee. ) - Patient Data Vitals - most recent: Last Vital Signs Temp 98.8 F 10/14/16 12:11 Pulse 78 10/14/16 12:11 Resp 16 10/14/16 12:11 BP 134/76 10/14/16 12:11 Pulse Ox 96 10/14/16 12:11 Weight - most recent: 217 lb I&O - last 24 hours: Intake & Output 10/13/16 10/14/16 10/14/16 22:59 06:59 14:59 Intake Total 1850 1350 60 Output Total 350 1850 Balance 1500 -500 60 Lab Results last 24 hrs: Laboratory Results - last 24 hr 10/14/16 10/14/16 Range/Units 06:15 06:15 WBC 6.29 (3.98-10.04) K/mm3 RBC 3.56 L (3.98-5.22) M/mm3 Hgb 11.8 (11.2-15.7) gm/L Hct 34.6 (34.1-44.9) % MCV 97.2 H (79.4-94.8) fl MCH 33.1 H (25.6-32.2) pg MCHC 34.1 (32.2-35.5) g/dl RDW Std Deviation 42.2 (36.4-46.3) fL Plt Count 196 (182-369) K/mm3 MPV 10.3 (9.4-12.3) fl Neut % (Auto) 61.0 (34.0-71.1) % Lymph % (Auto) 20.2 (19.3-51.7) % [place] % (Auto) 14.6 H (4.7-12.5) % Eos % (Auto) 3.5 (0.7-5.8) Baso % (Auto) 0.5 (0.1-1.2) % Neut # (Auto) 3.84 (1.56-6.13) K/mm3 Lymph # (Auto) 1.27 (1.18-3.74) K/mm3 [place] # (Auto) 0.92 H (0.24-0.36) K/mm3 Eos # (Auto) 0.22 (0.04-0.36) K/mm3 Baso # (Auto) 0.03 (0.01-0.08) K/mm3 Sodium 138 (136-145) mEq/L Potassium 4.2 (3.5-5.1) mEq/L Chloride 104 (98-107) mEq/L Carbon Dioxide 24 (21-32) mEq/L Anion Gap 14.2 (5-15) BUN 18 (7-18) mg/dL Creatinine 1.1 H (0.55-1.02) mg/dL Est Cr Clr Drug Dosing 58.84 mL/min Estimated GFR (MDRD) 52 (>60) mL/min BUN/Creatinine Ratio 16.4 (14-18) Glucose 111 H (74-106) mg/dL Calcium 8.7 (8.5-10.1) mg/dL Total Bilirubin 0.4 (0.2-1.0) mg/dL AST 13 L (15-37) U/L ALT 19 (14-59) U/L Alkaline Phosphatase 124 H (46-116) U/L Total Protein 5.7 L (6.4-8.2) g/dl Albumin 2.8 L (3.4-5.0) g/dl Globulin 2.9 gm/dL Albumin/Globulin Ratio 1.0 (1-2) Med Orders - Current: Current Medications Albuterol (Proventil Hfa) 1 - 2 gm INH Q4H PRN PRN Reason: Shortness of Breath Aspirin (Ecotrin) 325 mg PO BID [facility] Last Admin: 10/14/16 08:10 Dose: 325 mg Bisacodyl (Dulcolax) 5 mg PO DAILY PRN PRN Reason: Constipation Cyclobenzaprine HCl (Flexeril) 10 mg PO TID PRN PRN Reason: Spasms Last Admin: 10/14/16 08:10 Dose: 10 mg Diphenhydramine HCl (Benadryl) 25 mg IVPUSH Q4H PRN PRN Reason: Nausea Last Admin: 10/13/16 09:43 Dose: 25 mg Docusate Sodium (Colace) 100 mg PO BID [facility] Last Admin: 10/14/16 08:10 Dose: 100 mg Famotidine (Pepcid) 20 mg PO Q12H [facility] Last Admin: 10/14/16 06:44 Dose: 20 mg Folic Acid (Folic Acid) 1 mg PO DAILY [facility] Last Admin: 10/14/16 08:10 Dose: 1 mg Lorazepam (Ativan) 0.5 mg PO Q4H PRN PRN Reason: Anxiety Last Admin: 10/14/16 08:17 Dose: 0.5 mg Magnesium Hydroxide (Milk Of Magnesia) 30 ml PO BID PRN PRN Reason: Constipation Morphine Sulfate (Morphine) 2 mg IVPUSH Q2H PRN PRN Reason: Breakthrough Pain Last Admin: 10/14/16 10:21 Dose: 2 mg Ondansetron HCl (Zofran) 4 mg IVPUSH Q6H PRN PRN Reason: Nausea/Vomiting Oxycodone HCl (Oxycodone) 5 mg PO Q6H PRN PRN Reason: Pain (severe 7-10) Last Admin: 10/14/16 11:35 Dose: 5 mg Oxycodone/Acetaminophen (Percocet 325-5 Mg) 1 - 2 tab PO Q4H PRN PRN Reason: Pain Last Admin: 10/14/16 08:09 Dose: 2 tab Cholecalciferol [ Vitamin D3] 50,000 Unit 0 each PO Mo@0900 [facility] Last Admin: 10/13/16 15:18 Dose: Not Given Senna (Senna) 8.6 mg PO BID PRN PRN Reason: Constipation Venlafaxine HCl (Effexor Xr) 75 mg PO DAILY [facility] Last Admin: 10/14/16 08:10 Dose: 75 mg Discontinued Medications Bupivacaine HCl (Marcaine 0.25%) Confirm Administered Dose 30 ml .ROUTE .STK- MED ONE Stop: 10/13/16 06:30 Last Admin: 10/13/16 08:42 Dose: 30 ml Cefazolin Sodium (Ancef) Confirm Administered Dose 2 gm .ROUTE .STK-MED ONE Stop: 10/13/16 06:30 Last Admin: 10/13/16 08:37 Dose: 2 gm Cefazolin Sodium (Ancef) Confirm Administered Dose 2 gm .ROUTE .STK-MED ONE Stop: 10/13/16 06:31 Cefazolin Sodium (Ancef) Confirm Administered Dose 2 gm .ROUTE .STK-MED ONE Stop: 10/13/16 07:48 Morphine Sulfate 8 mg/Epinephrine HCl 0.3 mg/Cefuroxime Sodium 750 mg/Ketorolac Tromethamine 30 mg/Sodium Chloride 27.9 ml 0 mg .XX ONETIME ONE Stop: 10/13/16 07:46 Last Admin: 10/14/16 04:17 Dose: Not Given Diphenhydramine HCl (Benadryl) 25 mg IVPUSH Q6H PRN PRN Reason: Pruritis Stop: 10/13/16 12:00 Ephedrine Sulfate (Ephedrine In Ns) Confirm Administered Dose 25 mg .ROUTE .STK- MED ONE Stop: 10/13/16 08:11 Fentanyl (Sublimaze) Confirm Administered Dose 100 mcg .ROUTE .STK-MED ONE Stop: 10/13/16 07:17 Fentanyl (Sublimaze) Confirm Administered Dose 100 mcg .ROUTE .STK-MED ONE Stop: 10/13/16 08:33 Fentanyl (Sublimaze) 50 mcg IVPUSH Q5M PRN PRN Reason: Pain Stop: 10/13/16 09:00 Lactated Ringer's (Ringers, Lactated) 1,000 mls @ 125 mls/hr IV ASDIRECTED [facility] Lactated Ringer's (Ringers, Lactated) 1,000 mls @ 125 mls/hr IV ASDIRECTED [facility] Stop: 10/13/16 23:00 Last Admin: 10/13/16 06:45 Dose: 125 mls/hr Cefazolin Sodium/Dextrose 2 gm (/ Premix) 50 mls @ 100 mls/hr IV Q8H [facility] Stop: 10/13/16 23:29 Last Admin: 10/14/16 04:17 Dose: Not Given Cefazolin Sodium/Dextrose 2 gm (/ Premix) 50 mls @ 100 mls/hr IV Q8H [facility] Stop: 10/14/16 07:29 Last Admin: 10/14/16 06:52 Dose: 100 mls/hr Iodine (Iodine 2% Mild Tincture) Confirm Administered Dose 30 ml .ROUTE .STK- MED ONE Stop: 10/13/16 06:30 Last Admin: 10/13/16 08:33 Dose: 18 ml Ketorolac Tromethamine (Toradol) 15 mg IVPUSH ONETIME ONE Stop: 10/13/16 23:13 Last Admin: 10/13/16 23:35 Dose: 15 mg Ketorolac Tromethamine (Toradol) 15 mg IVPUSH ONETIME ONE Stop: 10/14/16 10:16 Last Admin: 10/14/16 11:36 Dose: 15 mg Lidocaine/Sodium Bicarbonate (Buffered Lidocaine 1% In Ns 8.4%) 0.25 ml IV ONETIME PRN PRN Reason: Prior to IV Start Lidocaine/Sodium Bicarbonate (Buffered Lidocaine 1% In Ns 8.4%) 0.25 ml IV ONETIME PRN PRN Reason: Prior to IV Start Stop: 10/13/16 12:00 Last Admin: 10/13/16 06:45 Dose: 0.25 ml Meperidine HCl (Demerol) 12.5 mg IVPUSH ONETIME PRN PRN Reason: Shivering Stop: 10/13/16 12:00 Midazolam HCl (Versed 1 Mg/Ml) Confirm Administered Dose 2 mg .ROUTE .STK-MED ONE Stop: 10/13/16 07:17 Morphine Sulfate (Duramorph Pf) Confirm Administered Dose 10 mg .ROUTE .STK-MED ONE Stop: 10/13/16 07:17 Multivitamins (Thera) 1 each PO WITHBREAKFAST GW[facility] Naloxone HCl (Narcan) 0.1 mg IVPUSH Q5M PRN PRN Reason: Oversedation Stop: 10/13/16 06:56 Non-Formulary Medication (Multivitamin) 1 tab PO DAILY [facility] Ondansetron HCl (Zofran) 4 mg IVPUSH ONETIME PRN PRN Reason: Nausea/Vomiting Stop: 10/13/16 12:00 Phenylephrine HCl (Phenylephrine In Ns 100 Mcg/Ml) Confirm Administered Dose 1 mg .ROUTE .STK-MED ONE Stop: 10/13/16 08:43 Pneumococcal Polyvalent Vaccine (Pneumovax 23) 0.5 ml IM .ONCE ONE Stop: 10/13/16 12:01 Propofol (Diprivan 20 Ml) Confirm Administered Dose 400 mg .ROUTE .STK-MED ONE Stop: 10/13/16 07:17 Propofol (Diprivan 20 Ml) Confirm Administered Dose 200 mg .ROUTE .STK-MED ONE Stop: 10/13/16 08:20 Propofol (Diprivan 20 Ml) Confirm Administered Dose 200 mg .ROUTE .STK-MED ONE Stop: 10/13/16 08:39 Propofol (Diprivan 20 Ml) Confirm Administered Dose 200 mg .ROUTE .STK-MED ONE Stop: 10/13/16 08:54 Sodium Chloride (Saline Flush) 10 ml FLUSH ASDIRECTED PRN PRN Reason: Keep Vein Open Sodium Chloride (Saline Flush) 10 ml FLUSH ASDIRECTED PRN PRN Reason: Keep Vein Open Stop: 10/13/16 12:00 Tranexamic Acid (Cyklokapron) Confirm Administered Dose 1,000 mg .ROUTE .STK- MED ONE Stop: 10/13/16 06:30 Last Admin: 10/13/16 08:51 Dose: 1,000 mg Venlafaxine HCl (Effexor Xr) 75 mg PO DAILY [facility] - Exam Wound/Incisions: dressing dry and intact General: alert, cooperative, no acute distress Lungs: Normal respiratory effort Extremities: normal pulses, no calf tenderness, other ([place]'s negative for LLE. NVS intact for BLE.) - Problem List Review Problem List Initiated/Reviewed/Updated: Yes - My Orders Last 24 Hours: Active Orders 24 hr Category Date Time Status Communication Order [RC] ASDIRECTED Care 10/13/16 22:58 Active Aspirin [Ecotrin] Med 10/14/16 09:00 Active 325 mg PO BID Docusate Sodium [Colace] Med 10/13/16 21:00 Active 100 mg PO BID Folic Acid Med 10/14/16 09:00 Active 1 mg PO DAILY LORazepam [Ativan] Med 10/13/16 23:15 Active 0.5 mg PO Q4H PRN Venlafaxine [Effexor XR] Med 10/14/16 09:00 Active 75 mg PO DAILY oxyCODONE Med 10/13/16 23:14 Active 5 mg PO Q6H PRN Medication Orders Albuterol (Proventil Hfa) 1 - 2 gm INH Q4H PRN PRN Reason: Shortness of Breath Aspirin (Ecotrin) 325 mg PO BID [facility] Last Admin: 10/14/16 08:10 Dose: 325 mg Bisacodyl (Dulcolax) 5 mg PO DAILY PRN PRN Reason: Constipation Cyclobenzaprine HCl (Flexeril) 10 mg PO TID PRN PRN Reason: Spasms Last Admin: 10/14/16 08:10 Dose: 10 mg Admin: 10/13/16 18:07 Dose: 10 mg Admin: 10/13/16 11:53 Dose: 10 mg Diphenhydramine HCl (Benadryl) 25 mg IVPUSH Q4H PRN PRN Reason: Nausea Last Admin: 10/13/16 09:43 Dose: 25 mg Docusate Sodium (Colace) 100 mg PO BID [facility] Last Admin: 10/14/16 08:10 Dose: 100 mg Admin: 10/13/16 21:41 Dose: 100 mg Famotidine (Pepcid) 20 mg PO Q12H [facility] Last Admin: 10/14/16 06:44 Dose: 20 mg Admin: 10/13/16 19:14 Dose: Admin: 10/13/16 19:01 Dose: 20 mg Folic Acid (Folic Acid) 1 mg PO DAILY [facility] Last Admin: 10/14/16 08:10 Dose: 1 mg Lorazepam (Ativan) 0.5 mg PO Q4H PRN PRN Reason: Anxiety Last Admin: 10/14/16 08:17 Dose: 0.5 mg Admin: 10/14/16 04:13 Dose: 0.5 mg Admin: 10/13/16 23:52 Dose: 0.5 mg Magnesium Hydroxide (Milk Of Magnesia) 30 ml PO BID PRN PRN Reason: Constipation Morphine Sulfate (Morphine) 2 mg IVPUSH Q2H PRN PRN Reason: Breakthrough Pain Last Admin: 10/14/16 10:21 Dose: 2 mg Admin: 10/13/16 22:56 Dose: 1 mg Admin: 10/13/16 19:02 Dose: 1 mg Ondansetron HCl (Zofran) 4 mg IVPUSH Q6H PRN PRN Reason: Nausea/Vomiting Oxycodone HCl (Oxycodone) 5 mg PO Q6H PRN PRN Reason: Pain (severe 7-10) Last Admin: 10/14/16 11:35 Dose: 5 mg Admin: 10/14/16 05:50 Dose: 5 mg Admin: 10/13/16 23:41 Dose: 5 mg Oxycodone/Acetaminophen (Percocet 325-5 Mg) 1 - 2 tab PO Q4H PRN PRN Reason: Pain Last Admin: 10/14/16 08:09 Dose: 2 tab Admin: 10/14/16 04:07 Dose: 2 tab Admin: 10/13/16 23:53 Dose: 2 tab Admin: 10/13/16 19:52 Dose: 2 tab Admin: 10/13/16 15:51 Dose: 2 tab Admin: 10/13/16 11:51 Dose: 2 tab Cholecalciferol [ Vitamin D3] 50,000 Unit 0 each PO Mo@0900 [facility] Last Admin: 10/13/16 15:18 Dose: Senna (Senna) 8.6 mg PO BID PRN PRN Reason: Constipation Venlafaxine HCl (Effexor Xr) 75 mg PO DAILY [facility] Last Admin: 10/14/16 08:10 Dose: 75 mg - Assessment Assessment (Free Text/Narrative):: POD#1 - left TKA with hardware removal - Plan Plan (Free Text/Narrative):: 1. Hgb 11.8 today. 2. Added oxycodone 5mg q 6 hours PRN pain. 3. 325mg ASA BID, frequent mobility, TEDs. 4. Further orders per Hospitalist service. The pt is yet to wean from use of O2. The pt's case was discussed with Dr. Rossi today.
[2016-10-15] MEDS: Cyclobenzaprine 10 MG Tab PO PRN ×2 (00:05→08:17)
[2016-10-15] MEDS: LORazepam 0.5 MG Tab PO PRN ×2 (00:50→08:17)
[2016-10-15] MEDS: Acetaminophen/oxyCODONE 325-5 MG Tab PO PRN ×3 (03:20→12:39)
[2016-10-15] MEDS: Famotidine 20 MG Tab PO SCH (06:43)
--- NOTE | 2016-10-15 07:37 | PCM.CONSN ---
- General Info Date of Service: 10/15/16 Admission Dx/Problem (Free Text): POD #2 rt TKA, with Dr. Rossi Pain improved. Working with PT, doing well other than pain. Functional Status: Reports: pain controlled, tolerating diet, ambulating, urinating. Denies: new symptoms - Review of Systems General: Reports: No Symptoms HEENT: Reports: no symptoms Pulmonary: Reports: no symptoms Cardiovascular: Reports: No Symptoms Gastrointestinal: Reports: No symptoms Genitourinary: Reports: no symptoms Musculoskeletal: Reports: leg pain Skin: Reports: no symptoms Neurological: Reports: No Symptoms Psychiatric: Reports: no symptoms - Patient Data Vitals - most recent: Last Vital Signs Temp 98.2 F 10/14/16 19:52 Pulse 81 10/14/16 19:52 Resp 16 10/14/16 19:50 BP 120/67 10/14/16 19:50 Pulse Ox 95 10/15/16 06:51 Weight - most recent: 232 lb 12.8 oz I&O - last 24 hours: Intake & Output 10/14/16 10/15/16 10/15/16 22:59 06:59 14:59 Intake Total 200 Balance 200 Lab Results last 24 hrs: Laboratory Results - last 24 hr 10/14/16 Range/Units 06:15 Sodium 138 (136-145) mEq/L Potassium 4.2 (3.5-5.1) mEq/L Chloride 104 (98-107) mEq/L Carbon Dioxide 24 (21-32) mEq/L Anion Gap 14.2 (5-15) BUN 18 (7-18) mg/dL Creatinine 1.1 H (0.55-1.02) mg/dL Est Cr Clr Drug Dosing 58.84 mL/min Estimated GFR (MDRD) 52 (>60) mL/min BUN/Creatinine Ratio 16.4 (14-18) Glucose 111 H (74-106) mg/dL Calcium 8.7 (8.5-10.1) mg/dL Total Bilirubin 0.4 (0.2-1.0) mg/dL AST 13 L (15-37) U/L ALT 19 (14-59) U/L Alkaline Phosphatase 124 H (46-116) U/L Total Protein 5.7 L (6.4-8.2) g/dl Albumin 2.8 L (3.4-5.0) g/dl Globulin 2.9 gm/dL Albumin/Globulin Ratio 1.0 (1-2) Med Orders - Current: Current Medications Albuterol (Proventil Hfa) 1 - 2 gm INH Q4H PRN PRN Reason: Shortness of Breath Aspirin (Ecotrin) 325 mg PO BID [facility] Last Admin: 10/14/16 21:01 Dose: 325 mg Bisacodyl (Dulcolax) 5 mg PO DAILY PRN PRN Reason: Constipation Cyclobenzaprine HCl (Flexeril) 10 mg PO TID PRN PRN Reason: Spasms Last Admin: 10/15/16 00:05 Dose: 10 mg Diphenhydramine HCl (Benadryl) 25 mg IVPUSH Q4H PRN PRN Reason: Nausea Last Admin: 10/13/16 09:43 Dose: 25 mg Docusate Sodium (Colace) 100 mg PO BID [facility] Last Admin: 10/14/16 21:01 Dose: 100 mg Famotidine (Pepcid) 20 mg PO Q12H [facility] Last Admin: 10/15/16 06:43 Dose: 20 mg Folic Acid (Folic Acid) 1 mg PO DAILY [facility] Last Admin: 10/14/16 08:10 Dose: 1 mg Lorazepam (Ativan) 0.5 mg PO Q4H PRN PRN Reason: Anxiety Last Admin: 10/15/16 00:50 Dose: 0.5 mg Magnesium Hydroxide (Milk Of Magnesia) 30 ml PO BID PRN PRN Reason: Constipation Morphine Sulfate (Morphine) 2 mg IVPUSH Q2H PRN PRN Reason: Breakthrough Pain Last Admin: 10/14/16 10:21 Dose: 2 mg Ondansetron HCl (Zofran) 4 mg IVPUSH Q6H PRN PRN Reason: Nausea/Vomiting Oxycodone HCl (Oxycodone) 5 mg PO Q6H PRN PRN Reason: Pain (severe 7-10) Last Admin: 10/14/16 11:35 Dose: 5 mg Oxycodone/Acetaminophen (Percocet 325-5 Mg) 1 - 2 tab PO Q4H PRN PRN Reason: Pain Last Admin: 10/15/16 06:42 Dose: 2 tab Cholecalciferol [ Vitamin D3] 50,000 Unit 0 each PO Mo@0900 [facility] Last Admin: 10/13/16 15:18 Dose: Not Given Senna (Senna) 8.6 mg PO BID PRN PRN Reason: Constipation Last Admin: 10/14/16 15:00 Dose: 8.6 mg Venlafaxine HCl (Effexor Xr) 75 mg PO DAILY [facility] Last Admin: 10/14/16 08:10 Dose: 75 mg Discontinued Medications Bupivacaine HCl (Marcaine 0.25%) Confirm Administered Dose 30 ml .ROUTE .STK- MED ONE Stop: 10/13/16 06:30 Last Admin: 10/13/16 08:42 Dose: 30 ml Cefazolin Sodium (Ancef) Confirm Administered Dose 2 gm .ROUTE .STK-MED ONE Stop: 10/13/16 06:30 Last Admin: 10/13/16 08:37 Dose: 2 gm Cefazolin Sodium (Ancef) Confirm Administered Dose 2 gm .ROUTE .STK-MED ONE Stop: 10/13/16 06:31 Cefazolin Sodium (Ancef) Confirm Administered Dose 2 gm .ROUTE .STK-MED ONE Stop: 10/13/16 07:48 Morphine Sulfate 8 mg/Epinephrine HCl 0.3 mg/Cefuroxime Sodium 750 mg/Ketorolac Tromethamine 30 mg/Sodium Chloride 27.9 ml 0 mg .XX ONETIME ONE Stop: 10/13/16 07:46 Last Admin: 10/14/16 04:17 Dose: Not Given Diphenhydramine HCl (Benadryl) 25 mg IVPUSH Q6H PRN PRN Reason: Pruritis Stop: 10/13/16 12:00 Ephedrine Sulfate (Ephedrine In Ns) Confirm Administered Dose 25 mg .ROUTE .STK- MED ONE Stop: 10/13/16 08:11 Fentanyl (Sublimaze) Confirm Administered Dose 100 mcg .ROUTE .STK-MED ONE Stop: 10/13/16 07:17 Fentanyl (Sublimaze) Confirm Administered Dose 100 mcg .ROUTE .STK-MED ONE Stop: 10/13/16 08:33 Fentanyl (Sublimaze) 50 mcg IVPUSH Q5M PRN PRN Reason: Pain Stop: 10/13/16 09:00 Lactated Ringer's (Ringers, Lactated) 1,000 mls @ 125 mls/hr IV ASDIRECTED [facility] Lactated Ringer's (Ringers, Lactated) 1,000 mls @ 125 mls/hr IV ASDIRECTED [facility] Stop: 10/13/16 23:00 Last Admin: 10/13/16 06:45 Dose: 125 mls/hr Cefazolin Sodium/Dextrose 2 gm (/ Premix) 50 mls @ 100 mls/hr IV Q8H [facility] Stop: 10/13/16 23:29 Last Admin: 10/14/16 04:17 Dose: Not Given Cefazolin Sodium/Dextrose 2 gm (/ Premix) 50 mls @ 100 mls/hr IV Q8H [facility] Stop: 10/14/16 07:29 Last Admin: 10/14/16 06:52 Dose: 100 mls/hr Iodine (Iodine 2% Mild Tincture) Confirm Administered Dose 30 ml .ROUTE .STK- MED ONE Stop: 10/13/16 06:30 Last Admin: 10/13/16 08:33 Dose: 18 ml Ketorolac Tromethamine (Toradol) 15 mg IVPUSH ONETIME ONE Stop: 10/13/16 23:13 Last Admin: 10/13/16 23:35 Dose: 15 mg Ketorolac Tromethamine (Toradol) 15 mg IVPUSH ONETIME ONE Stop: 10/14/16 10:16 Last Admin: 10/14/16 11:36 Dose: 15 mg Lidocaine/Sodium Bicarbonate (Buffered Lidocaine 1% In Ns 8.4%) 0.25 ml IV ONETIME PRN PRN Reason: Prior to IV Start Lidocaine/Sodium Bicarbonate (Buffered Lidocaine 1% In Ns 8.4%) 0.25 ml IV ONETIME PRN PRN Reason: Prior to IV Start Stop: 10/13/16 12:00 Last Admin: 10/13/16 06:45 Dose: 0.25 ml Meperidine HCl (Demerol) 12.5 mg IVPUSH ONETIME PRN PRN Reason: Shivering Stop: 10/13/16 12:00 Midazolam HCl (Versed 1 Mg/Ml) Confirm Administered Dose 2 mg .ROUTE .STK-MED ONE Stop: 10/13/16 07:17 Morphine Sulfate (Duramorph Pf) Confirm Administered Dose 10 mg .ROUTE .STK-MED ONE Stop: 10/13/16 07:17 [facility]ivit[facility] (Thera) [facility] Naloxone [facility] (Narcan) 0.1 mg IVPUSH Q5M PRN PRN Reason: Oversedation Stop: 10/13/16 06:56 Non-Formulary Medication (Multivitamin) 1 tab PO DAILY [facility] Ondansetron HCl (Zofran) 4 mg IVPUSH ONETIME PRN PRN Reason: Nausea/Vomiting Stop: 10/13/16 12:00 Phenylephrine HCl (Phenylephrine In Ns 100 Mcg/Ml) Confirm Administered Dose 1 mg .ROUTE .STK-MED ONE Stop: 10/13/16 08:43 Pneumococcal Polyvalent Vaccine (Pneumovax 23) 0.5 ml IM .ONCE ONE Stop: 10/13/16 12:01 Propofol (Diprivan 20 Ml) Confirm Administered Dose 400 mg .ROUTE .STK-MED ONE Stop: 10/13/16 07:17 Propofol (Diprivan 20 Ml) Confirm Administered Dose 200 mg .ROUTE .STK-MED ONE Stop: 10/13/16 08:20 Propofol (Diprivan 20 Ml) Confirm Administered Dose 200 mg .ROUTE .STK-MED ONE Stop: 10/13/16 08:39 Propofol (Diprivan 20 Ml) Confirm Administered Dose 200 mg .ROUTE .STK-MED ONE Stop: 10/13/16 08:54 Sodium Chloride (Saline Flush) 10 ml FLUSH ASDIRECTED PRN PRN Reason: Keep Vein Open Sodium Chloride (Saline Flush) 10 ml FLUSH ASDIRECTED PRN PRN Reason: Keep Vein Open Stop: 10/13/16 12:00 Tranexamic Acid (Cyklokapron) Confirm Administered Dose 1,000 mg .ROUTE .STK- MED ONE Stop: 10/13/16 06:30 Last Admin: 10/13/16 08:51 Dose: 1,000 mg Venlafaxine HCl (Effexor Xr) 75 mg PO DAILY [facility] - Exam Quality Assessment: DVT prophylaxis General: alert, oriented, cooperative, no acute distress HEENT: Pupils equal, Pupils reactive, EOMI, Mucous membr. moist/pink Neck: supple Lungs: Clear to auscultation, Normal respiratory effort Cardiovascular: Regular Rate, Regular Rhythm Abdomen: bowel sounds present, soft, no tenderness, no distension (Female) Exam: Deferred Extremities: other (teds, SCD's bilat) Wound/Incisions: dressing dry and intact Neurological: no new focal deficit Psy/Mental Status: alert, normal affect, normal mood Consult PN Assessment/Plan POD#: 2 Procedures: Procedures ANTINUCLEAR ANTIBODIES (02/29/16) ASSAY ALKALINE PHOSPHATASE (03/03/16) ASSAY OF CREATININE (07/27/13) ASSAY OF FERRITIN (10/03/16) ASSAY OF FREE THYROXINE (02/29/16) ASSAY OF IRON (09/03/16) ASSAY OF PREALBUMIN (10/03/16) ASSAY OF SERUM ALBUMIN (10/03/16) ASSAY OF TRANSFERRIN (09/03/16) ASSAY THYROID STIM HORMONE (09/03/16) BLOOD TYPING SEROLOGIC ABO (07/27/13) BLOOD TYPING SEROLOGIC RH(D) (07/27/13) C-REACTIVE PROTEIN (02/29/16) CCP ANTIBODY (02/29/16) CHEST X-RAY 2VW FRONTAL&LATL (10/03/16) CHORIONIC GONADOTROPIN ASSAY (07/27/13) COMPLETE CBC AUTOMATED (10/03/16) COMPLETE CBC W/AUTO DIFF WBC (07/07/16) COMPREHEN METABOLIC PANEL (07/07/16) CT THORAX W/DYE (07/07/16) CULTURE SCREEN ONLY (06/30/16) EMERGENCY DEPT VISIT (05/21/16) FLUOROSCOPE EXAMINATION (09/15/13) INFLUENZA ASSAY W/OPTIC (06/30/16) LYME DISEASE ANTIBODY (03/03/16) METABOLIC PANEL TOTAL CA (10/03/16) MR-STAPH DNA AMP PROBE (10/02/16) PROTHROMBIN TIME (10/03/16) RBC ANTIBODY SCREEN (07/27/13) RBC SED RATE AUTOMATED (02/29/16) REMOVAL OF ANKLE/HEEL LESION (09/15/13) REPAIR BLADDER DEFECT (07/29/13) REPAIR OF LEG TENDON EACH (09/15/13) RHEUMATOID FACTOR TEST QUAL (02/29/16) ROUTINE VENIPUNCTURE (09/03/16) STREP A AG IA (06/30/16) THROMBOPLASTIN TIME PARTIAL (10/03/16) TISSUE EXAM BY PATHOLOGIST (07/29/13) URINALYSIS AUTO W/SCOPE (10/03/16) VAGINAL HYSTERECTOMY (07/29/13) VITAMIN B-12 (09/03/16) VITAMIN D 25 HYDROXY (09/03/16) X-RAY EXAM L-S SPINE 2/3 VWS (02/29/16) X-RAY EXAM OF KNEE 3 (05/19/16) X-RAY EXAM OF PELVIS (02/29/16) (1) S/P total knee arthroplasty SNOMED Code(s): 0042992104535, 220657094, 0481240931466 Code(s): Z96.659 - PRESENCE OF UNSPECIFIED ARTIFICIAL KNEE JOINT Priority: High Current Visit: Yes Qualifiers: Laterality: right Qualified Code(s): Z96.651 - Presence of right artificial knee joint (2) Osteoarthritis SNOMED Code(s): 579705939 Code(s): M19.90 - UNSPECIFIED OSTEOARTHRITIS, UNSPECIFIED SITE Priority: High Current Visit: Yes Qualifiers: Osteoarthritis location: knee Osteoarthritis type: primary Laterality: right Qualified Code(s): M17.11 - Unilateral primary osteoarthritis, right knee (3) Lung mass SNOMED Code(s): 427299605 Code(s): R91.8 - OTHER NONSPECIFIC ABNORMAL FINDING OF LUNG FIELD Priority : Medium Current Visit: No (4) Depression SNOMED Code(s): 22044752 Code(s): F32.9 - MAJOR DEPRESSIVE DISORDER, SINGLE EPISODE, UNSPECIFIED Priority: Medium Current Visit: No Qualifiers: Depression Type: unspecified Qualified Code(s): F32.9 - Major depressive disorder, single episode, unspecified (5) Hypertension SNOMED Code(s): 99387053 Code(s): I10 - ESSENTIAL (PRIMARY) HYPERTENSION Priority: Medium Current Visit: No Qualifiers: Hypertension type: essential hypertension Qualified Code(s): I10 - Essential (primary) hypertension (6) Vitamin D deficiency SNOMED Code(s): 15145368 Code(s): E55.9 - VITAMIN D DEFICIENCY, UNSPECIFIED Priority: Medium Current Visit: No Problem List Initiated/Reviewed/Updated: Yes Plan: I/P: S/P Rt TKA, POD #2, Dr. Rossi -DVT prophylax and pain managment per primary team--pain not well controlled this morning -PT/OT -RT/IS -VSS Chronic conditions: HTN- stable Hx lung mass resection- doing well from respiratory standpoint Depression- cont home meds Hypovitaminosis D- cont supplement Other: PT/OT CM/SW for assist with DC planning-plans home with family care today GI/DVT prophylax Patient is Full Code
[2016-10-15] MEDS: Venlafaxine 75 MG Cap.ER PO SCH (08:17)
[2016-10-15] MEDS: Docusate Sodium 100 MG Cap PO SCH (08:17)
[2016-10-15] MEDS: oxyCODONE 5 MG Tab PO PRN (08:17)
[2016-10-15] MEDS: Aspirin 325 MG Tab.EC PO SCH (08:17)
[2016-10-15] MEDS: Folic Acid 1 MG Tab PO SCH (08:17)
--- NOTE | 2016-10-15 10:20 | PCM.SURGPN ---
- General Info Date of Service: 10/15/16 POD#: 2 Functional Status: Reports: tolerating diet, ambulating, urinating, other (The pt reports more pain at night.). Denies: new symptoms - Patient Data Vitals - most recent: Last Vital Signs Temp 98.2 F 10/14/16 19:52 Pulse 81 10/14/16 19:52 Resp 16 10/14/16 19:50 BP 120/67 10/14/16 19:50 Pulse Ox 96 10/15/16 09:00 Weight - most recent: 232 lb 12.8 oz I&O - last 24 hours: Intake & Output 10/14/16 10/15/16 10/15/16 22:59 06:59 14:59 Intake Total 200 0 Balance 200 0 Med Orders - Current: Current Medications Albuterol (Proventil Hfa) 1 - 2 gm INH Q4H PRN PRN Reason: Shortness of Breath Aspirin (Ecotrin) 325 mg PO BID [facility] Last Admin: 10/15/16 08:17 Dose: 325 mg Bisacodyl (Dulcolax) 5 mg PO DAILY PRN PRN Reason: Constipation Cyclobenzaprine HCl (Flexeril) 10 mg PO TID PRN PRN Reason: Spasms Last Admin: 10/15/16 08:17 Dose: 10 mg Diphenhydramine HCl (Benadryl) 25 mg IVPUSH Q4H PRN PRN Reason: Nausea Last Admin: 10/13/16 09:43 Dose: 25 mg Docusate Sodium (Colace) 100 mg PO BID [facility] Last Admin: 10/15/16 08:17 Dose: 100 mg Famotidine (Pepcid) 20 mg PO Q12H [facility] Last Admin: 10/15/16 06:43 Dose: 20 mg Folic Acid (Folic Acid) 1 mg PO DAILY [facility] Last Admin: 10/15/16 08:17 Dose: 1 mg Lorazepam (Ativan) 0.5 mg PO Q4H PRN PRN Reason: Anxiety Last Admin: 10/15/16 08:17 Dose: 0.5 mg Magnesium Hydroxide (Milk Of Magnesia) 30 ml PO BID PRN PRN Reason: Constipation Morphine Sulfate (Morphine) 2 mg IVPUSH Q2H PRN PRN Reason: Breakthrough Pain Last Admin: 10/14/16 10:21 Dose: 2 mg Ondansetron HCl (Zofran) 4 mg IVPUSH Q6H PRN PRN Reason: Nausea/Vomiting Oxycodone HCl (Oxycodone) 5 mg PO Q6H PRN PRN Reason: Pain (severe 7-10) Last Admin: 10/15/16 08:17 Dose: 5 mg Oxycodone/Acetaminophen (Percocet 325-5 Mg) 1 - 2 tab PO Q4H PRN PRN Reason: Pain Last Admin: 10/15/16 06:42 Dose: 2 tab Cholecalciferol [ Vitamin D3] 50,000 Unit 0 each PO Mo@0900 [facility] Last Admin: 10/13/16 15:18 Dose: Not Given Senna (Senna) 8.6 mg PO BID PRN PRN Reason: Constipation Last Admin: 10/14/16 15:00 Dose: 8.6 mg Venlafaxine HCl (Effexor Xr) 75 mg PO DAILY [facility] Last Admin: 10/15/16 08:17 Dose: 75 mg Discontinued Medications Bupivacaine HCl (Marcaine 0.25%) Confirm Administered Dose 30 ml .ROUTE .STK- MED ONE Stop: 10/13/16 06:30 Last Admin: 10/13/16 08:42 Dose: 30 ml Cefazolin Sodium (Ancef) Confirm Administered Dose 2 gm .ROUTE .STK-MED ONE Stop: 10/13/16 06:30 Last Admin: 10/13/16 08:37 Dose: 2 gm Cefazolin Sodium (Ancef) Confirm Administered Dose 2 gm .ROUTE .STK-MED ONE Stop: 10/13/16 06:31 Cefazolin Sodium (Ancef) Confirm Administered Dose 2 gm .ROUTE .STK-MED ONE Stop: 10/13/16 07:48 Morphine Sulfate 8 mg/Epinephrine HCl 0.3 mg/Cefuroxime Sodium 750 mg/Ketorolac Tromethamine 30 mg/Sodium Chloride 27.9 ml 0 mg .XX ONETIME ONE Stop: 10/13/16 07:46 Last Admin: 10/14/16 04:17 Dose: Not Given Diphenhydramine HCl (Benadryl) 25 mg IVPUSH Q6H PRN PRN Reason: Pruritis Stop: 10/13/16 12:00 Ephedrine Sulfate (Ephedrine In Ns) Confirm Administered Dose 25 mg .ROUTE .STK- MED ONE Stop: 10/13/16 08:11 Fentanyl (Sublimaze) Confirm Administered Dose 100 mcg .ROUTE .STK-MED ONE Stop: 10/13/16 07:17 Fentanyl (Sublimaze) Confirm Administered Dose 100 mcg .ROUTE .STK-MED ONE Stop: 10/13/16 08:33 Fentanyl (Sublimaze) 50 mcg IVPUSH Q5M PRN PRN Reason: Pain Stop: 10/13/16 09:00 Lactated Ringer's (Ringers, Lactated) 1,000 mls @ 125 mls/hr IV ASDIRECTED [facility] Lactated Ringer's (Ringers, Lactated) 1,000 mls @ 125 mls/hr IV ASDIRECTED [facility] Stop: 10/13/16 23:00 Last Admin: 10/13/16 06:45 Dose: 125 mls/hr Cefazolin Sodium/Dextrose 2 gm (/ Premix) 50 mls @ 100 mls/hr IV Q8H [facility] Stop: 10/13/16 23:29 Last Admin: 10/14/16 04:17 Dose: Not Given Cefazolin Sodium/Dextrose 2 gm (/ Premix) 50 mls @ 100 mls/hr IV Q8H [facility] Stop: 10/14/16 07:29 Last Admin: 10/14/16 06:52 Dose: 100 mls/hr Iodine (Iodine 2% Mild Tincture) Confirm Administered Dose 30 ml .ROUTE .STK- MED ONE Stop: 10/13/16 06:30 Last Admin: 10/13/16 08:33 Dose: 18 ml Ketorolac Tromethamine (Toradol) 15 mg IVPUSH ONETIME ONE Stop: 10/13/16 23:13 Last Admin: 10/13/16 23:35 Dose: 15 mg Ketorolac Tromethamine (Toradol) 15 mg IVPUSH ONETIME ONE Stop: 10/14/16 10:16 Last Admin: 10/14/16 11:36 Dose: 15 mg Lidocaine/Sodium Bicarbonate (Buffered Lidocaine 1% In Ns 8.4%) 0.25 ml IV ONETIME PRN PRN Reason: Prior to IV Start Lidocaine/Sodium Bicarbonate (Buffered Lidocaine 1% In Ns 8.4%) 0.25 ml IV ONETIME PRN PRN Reason: Prior to IV Start Stop: 10/13/16 12:00 Last Admin: 10/13/16 06:45 Dose: 0.25 ml Meperidine HCl (Demerol) 12.5 mg IVPUSH ONETIME PRN PRN Reason: Shivering Stop: 10/13/16 12:00 Midazolam HCl (Versed 1 Mg/Ml) Confirm Administered Dose 2 mg .ROUTE .STK-MED ONE Stop: 10/13/16 07:17 Morphine Sulfate (Duramorph Pf) Confirm Administered Dose 10 mg .ROUTE .STK-MED ONE Stop: 10/13/16 07:17 Multivitamins (Thera) 1 each PO WITHBREAKFAST [facility] Naloxone HCl (Narcan) 0.1 mg IVPUSH Q5M PRN PRN Reason: Oversedation Stop: 10/13/16 06:56 Non-Formulary Medication (Multivitamin) 1 tab PO DAILY [facility] Ondansetron HCl (Zofran) 4 mg IVPUSH ONETIME PRN PRN Reason: Nausea/Vomiting Stop: 10/13/16 12:00 Phenylephrine HCl (Phenylephrine In Ns 100 Mcg/Ml) Confirm Administered Dose 1 mg .ROUTE .STK-MED ONE Stop: 10/13/16 08:43 Pneumococcal Polyvalent Vaccine (Pneumovax 23) 0.5 ml IM .ONCE ONE Stop: 10/13/16 12:01 Propofol (Diprivan 20 Ml) Confirm Administered Dose 400 mg .ROUTE .STK-MED ONE Stop: 10/13/16 07:17 Propofol (Diprivan 20 Ml) Confirm Administered Dose 200 mg .ROUTE .STK-MED ONE Stop: 10/13/16 08:20 Propofol (Diprivan 20 Ml) Confirm Administered Dose 200 mg .ROUTE .STK-MED ONE Stop: 10/13/16 08:39 Propofol (Diprivan 20 Ml) Confirm Administered Dose 200 mg .ROUTE .STK-MED ONE Stop: 10/13/16 08:54 Sodium Chloride (Saline Flush) 10 ml FLUSH ASDIRECTED PRN PRN Reason: Keep Vein Open Sodium Chloride (Saline Flush) 10 ml FLUSH ASDIRECTED PRN PRN Reason: Keep Vein Open Stop: 10/13/16 12:00 Tranexamic Acid (Cyklokapron) Confirm Administered Dose 1,000 mg .ROUTE .STK- MED ONE Stop: 10/13/16 06:30 Last Admin: 10/13/16 08:51 Dose: 1,000 mg Venlafaxine HCl (Effexor Xr) 75 mg PO DAILY [facility] - Exam Wound/Incisions: dressing dry and intact General: alert, cooperative, no acute distress Lungs: Normal respiratory effort Extremities: normal pulses, no calf tenderness (NVS intact for BLE. [place]'s negative.) - Problem List Review Problem List Initiated/Reviewed/Updated: Yes - My Orders Last 24 Hours: Medication Orders Albuterol (Proventil Hfa) 1 - 2 gm INH Q4H PRN PRN Reason: Shortness of Breath Aspirin (Ecotrin) 325 mg PO BID [facility] Last Admin: 10/15/16 08:17 Dose: 325 mg Admin: 10/14/16 21:01 Dose: 325 mg Admin: 10/14/16 08:10 Dose: 325 mg Bisacodyl (Dulcolax) 5 mg PO DAILY PRN PRN Reason: Constipation Cyclobenzaprine HCl (Flexeril) 10 mg PO TID PRN PRN Reason: Spasms Last Admin: 10/15/16 08:17 Dose: 10 mg Admin: 10/15/16 00:05 Dose: 10 mg Admin: 10/14/16 16:28 Dose: 10 mg Admin: 10/14/16 08:10 Dose: 10 mg Admin: 10/13/16 18:07 Dose: 10 mg Admin: 10/13/16 11:53 Dose: 10 mg Diphenhydramine HCl (Benadryl) 25 mg IVPUSH Q4H PRN PRN Reason: Nausea Last Admin: 10/13/16 09:43 Dose: 25 mg Docusate Sodium (Colace) 100 mg PO BID [facility] Last Admin: 10/15/16 08:17 Dose: 100 mg Admin: 10/14/16 21:01 Dose: 100 mg Admin: 10/14/16 08:10 Dose: 100 mg Admin: 10/13/16 21:41 Dose: 100 mg Famotidine (Pepcid) 20 mg PO Q12H [facility] Last Admin: 10/15/16 06:43 Dose: 20 mg Admin: 10/14/16 18:55 Dose: 20 mg Admin: 10/14/16 06:44 Dose: 20 mg Admin: 10/13/16 19:14 Dose: Admin: 10/13/16 19:01 Dose: 20 mg Folic Acid (Folic Acid) 1 mg PO DAILY [facility] Last Admin: 10/15/16 08:17 Dose: 1 mg Admin: 10/14/16 08:10 Dose: 1 mg Lorazepam (Ativan) 0.5 mg PO Q4H PRN PRN Reason: Anxiety Last Admin: 10/15/16 08:17 Dose: 0.5 mg Admin: 10/15/16 00:50 Dose: 0.5 mg Admin: 10/14/16 15:00 Dose: 0.5 mg Admin: 10/14/16 08:17 Dose: 0.5 mg Admin: 10/14/16 04:13 Dose: 0.5 mg Admin: 10/13/16 23:52 Dose: 0.5 mg Magnesium Hydroxide (Milk Of Magnesia) 30 ml PO BID PRN PRN Reason: Constipation Morphine Sulfate (Morphine) 2 mg IVPUSH Q2H PRN PRN Reason: Breakthrough Pain Last Admin: 10/14/16 10:21 Dose: 2 mg Admin: 10/13/16 22:56 Dose: 1 mg Admin: 10/13/16 19:02 Dose: 1 mg Ondansetron HCl (Zofran) 4 mg IVPUSH Q6H PRN PRN Reason: Nausea/Vomiting Oxycodone HCl (Oxycodone) 5 mg PO Q6H PRN PRN Reason: Pain (severe 7-10) Last Admin: 10/15/16 08:17 Dose: 5 mg Admin: 10/14/16 11:35 Dose: 5 mg Admin: 10/14/16 05:50 Dose: 5 mg Admin: 10/13/16 23:41 Dose: 5 mg Oxycodone/Acetaminophen (Percocet 325-5 Mg) 1 - 2 tab PO Q4H PRN PRN Reason: Pain Last Admin: 10/15/16 06:42 Dose: 2 tab Admin: 10/15/16 03:20 Dose: 2 tab Admin: 10/14/16 22:59 Dose: 2 tab Admin: 10/14/16 18:55 Dose: 2 tab Admin: 10/14/16 14:55 Dose: 2 tab Admin: 10/14/16 08:09 Dose: 2 tab Admin: 10/14/16 04:07 Dose: 2 tab Admin: 10/13/16 23:53 Dose: 2 tab Admin: 10/13/16 19:52 Dose: 2 tab Admin: 10/13/16 15:51 Dose: 2 tab Admin: 10/13/16 11:51 Dose: 2 tab Cholecalciferol [ Vitamin D3] 50,000 Unit 0 each PO Mo@0900 [facility] Last Admin: 10/13/16 15:18 Dose: Senna (Senna) 8.6 mg PO BID PRN PRN Reason: Constipation Last Admin: 10/14/16 15:00 Dose: 8.6 mg Venlafaxine HCl (Effexor Xr) 75 mg PO DAILY [facility] Last Admin: 10/15/16 08:17 Dose: 75 mg Admin: 10/14/16 08:10 Dose: 75 mg - Assessment Assessment (Free Text/Narrative):: POD#2 - left TKA with hardware removal - Plan Plan (Free Text/Narrative):: 1. Discharge to home today. 2. Percocet and Flexeril for pain management. 3. 325mg PO BID, frequent mobility, TEDs. The pt's case was discussed with Dr. Rossi.
--- NOTE | 2016-10-15 10:22 | PCM.DCSUM1 ---
Discharge Summary - Hospital Course Brief History: Nelly is a 51 yo female who underwent left TKA with hardware removal with Dr. Rossi on 10-13-2016 . The procedure was completed under spinal anesthesia. The pt tolerated the procedure well and was admitted to the [facility] under Medical-Surgical status. Medical management was provided by the Hospitalist service. The pt's Hospital course was uneventful. The pt's Hgb on POD#1 was 11.8. On POD#1, 325mg BID was initiated for VTE prophylaxis. SCDs and TEDs were also ordered. A Mepilex dressing was placed at the incision site at the time of surgery and remained clean and dry. The pt participated in P.T. and O.T. and progressed well. The pt was allowed to WBAT. On POD#2, the pt was deemed appropriate to discharge to home with her family. - Discharge Data Discharge Date: 10/15/16 Discharge Disposition: Home, Self-Care 01 Condition: Good - Patient Summary/Data Operative Procedure(s) Performed: left knee deep hardware removal with left total knee arthroplasty Consults: Consultations 10/13/16 06:40 Consult to Physician [CONS] Routine OT Evaluation and Treatment [CONS] Routine 10/13/16 06:44 PT Evaluation and Treatment [CONS] Routine - Patient Instructions Diet: Usual Diet as Tolerated Activity: Apply Ice, As Tolerated, Elevate Extremity, Full Weight Bearing Driving: Do Not Drive Showering/Bathing: May Shower Wound/Incision Care: Keep Operative Site/Wound Site Clean and Dry, Do NOT Change Dressing Notify Provider of: Fever, Increased Pain, Swelling and Redness, Drainage, Nausea and/or Vomiting Other/Special Instructions: Please get up and moving around every hour while awake. This helps to prevent blood clots. Please use your walker and have help as needed. Take a 325mg ASPIRIN TWICE DAILY. This also helps to prevent blood clots. The aspirin is being used for blood clot prevention and not for pain management, so please do not miss a dose of the medication. Do the exercises you were taught in the Hospital. Schedule for P.T. Use the pain medication as needed. The medication may cause drowsiness and constipation. Contact your primary care provider for instructions if you are constipated. You may use a stool softener like docusate sodium or Colace 100mg twice daily and/or a laxative like Miralax daily for constipation. Use the ice machine often. Elevate the limb to decrease swelling. Keep the Mepilex dressing in place until follow-up at the Clinic. Notify the Clinic if the dressing is saturated. Wear the APPLE hose during the day and you may remove these at night. Eat a diet high in protein as this well help with healing. Schedule an appointment with your primary care provider for 'routine post-op care'. Call the Clinic with questions or concerns - [phone]. - Discharge Plan Prescriptions/Med Rec: Acetaminophen/oxyCODONE [Percocet 325-5 MG] 1 - 2 tab PO Q4H PRN #60 tablet PRN Reason: Pain Aspirin [Ecotrin] 325 mg PO BID #84 tab.ec Cyclobenzaprine [Flexeril] 10 mg PO TID PRN #40 tablet PRN Reason: muscle spasms Home Medications: Home Meds Multivitamin [One Daily Multivitamin] 1 tab PO DAILY 09/14/13 [History] Albuterol Sulfate [Proair Hfa] 1 - 2 puff INH Q4H PRN 10/09/16 [History] Aspirin/Acetaminophen/Caffeine [Migraine Formula Caplet] 1 tab PO TID PRN [History] Cholecalciferol (Vitamin D3) [Vitamin D3] 50,000 unit PO MO 10/09/16 [History] Folic Acid 1 mg PO DAILY 10/09/16 [History] Venlafaxine [Effexor XR] 75 mg PO DAILY 10/13/16 [History] Acetaminophen/oxyCODONE [Percocet 325-5 MG] 1 - 2 tab PO Q4H PRN #60 tablet [Rx] Aspirin [Ecotrin] 325 mg PO BID #84 tab.ec 10/14/16 [Rx] Cyclobenzaprine [Flexeril] 10 mg PO TID PRN #40 tablet 10/14/16 [Rx] Patient Handouts: Smoking Cessation, Tips for Success, [id number], Smoking Hazards, Total Knee Replacement, Care After, [id number], Total Knee Replacement, [id number], Aspirin, ASA oral tablets Referrals: Angela Woods PA-C [[facility]] - 10/24/16 12:00 pm (1st follow up appointment on 10/24 at 12;00 , 2nd follow up appointment is on 10/29 at 12:[address] Rossi's clinic) Magali Gresham PA-C [Primary Care Provider] - - Patient Data Vitals - Most Recent: Last Vital Signs Temp 98.2 F 10/14/16 19:52 Pulse 81 10/14/16 19:52 Resp 16 10/14/16 19:50 BP 120/67 10/14/16 19:50 Pulse Ox 96 10/15/16 09:00 Weight - Most Recent: 232 lb 12.8 oz I&O - Last 24 hours: Intake & Output 10/14/16 10/15/16 10/15/16 22:59 06:59 14:59 Intake Total 200 0 Balance 200 0 Med Orders - Current: Current Medications Albuterol (Proventil Hfa) 1 - 2 gm INH Q4H PRN PRN Reason: Shortness of Breath Aspirin (Ecotrin) 325 mg PO BID [facility] Last Admin: 10/15/16 08:17 Dose: 325 mg Bisacodyl (Dulcolax) 5 mg PO DAILY PRN PRN Reason: Constipation Cyclobenzaprine HCl (Flexeril) 10 mg PO TID PRN PRN Reason: Spasms Last Admin: 10/15/16 08:17 Dose: 10 mg Diphenhydramine HCl (Benadryl) 25 mg IVPUSH Q4H PRN PRN Reason: Nausea Last Admin: 10/13/16 09:43 Dose: 25 mg Docusate Sodium (Colace) 100 mg PO BID [facility] Last Admin: 10/15/16 08:17 Dose: 100 mg Famotidine (Pepcid) 20 mg PO Q12H [facility] Last Admin: 10/15/16 06:43 Dose: 20 mg Folic Acid (Folic Acid) 1 mg PO DAILY [facility] Last Admin: 10/15/16 08:17 Dose: 1 mg Lorazepam (Ativan) 0.5 mg PO Q4H PRN PRN Reason: Anxiety Last Admin: 10/15/16 08:17 Dose: 0.5 mg Magnesium Hydroxide (Milk Of Magnesia) 30 ml PO BID PRN PRN Reason: Constipation Morphine Sulfate (Morphine) 2 mg IVPUSH Q2H PRN PRN Reason: Breakthrough Pain Last Admin: 10/14/16 10:21 Dose: 2 mg Ondansetron HCl (Zofran) 4 mg IVPUSH Q6H PRN PRN Reason: Nausea/Vomiting Oxycodone HCl (Oxycodone) 5 mg PO Q6H PRN PRN Reason: Pain (severe 7-10) Last Admin: 10/15/16 08:17 Dose: 5 mg Oxycodone/Acetaminophen (Percocet 325-5 Mg) 1 - 2 tab PO Q4H PRN PRN Reason: Pain Last Admin: 10/15/16 06:42 Dose: 2 tab Cholecalciferol [ Vitamin D3] 50,000 Unit 0 each PO Mo@0900 [facility] Last Admin: 10/13/16 15:18 Dose: Not Given Senna (Senna) 8.6 mg PO BID PRN PRN Reason: Constipation Last Admin: 10/14/16 15:00 Dose: 8.6 mg Venlafaxine HCl (Effexor Xr) 75 mg PO DAILY [facility] Last Admin: 10/15/16 08:17 Dose: 75 mg Discontinued Medications Bupivacaine HCl (Marcaine 0.25%) Confirm Administered Dose 30 ml .ROUTE .STK- MED ONE Stop: 10/13/16 06:30 Last Admin: 10/13/16 08:42 Dose: 30 ml Cefazolin Sodium (Ancef) Confirm Administered Dose 2 gm .ROUTE .STK-MED ONE Stop: 10/13/16 06:30 Last Admin: 10/13/16 08:37 Dose: 2 gm Cefazolin Sodium (Ancef) Confirm Administered Dose 2 gm .ROUTE .STK-MED ONE Stop: 10/13/16 06:31 Cefazolin Sodium (Ancef) Confirm Administered Dose 2 gm .ROUTE .STK-MED ONE Stop: 10/13/16 07:48 Morphine Sulfate 8 mg/Epinephrine HCl 0.3 mg/Cefuroxime Sodium 750 mg/Ketorolac Tromethamine 30 mg/Sodium Chloride 27.9 ml 0 mg .XX ONETIME ONE Stop: 10/13/16 07:46 Last Admin: 10/14/16 04:17 Dose: Not Given Diphenhydramine HCl (Benadryl) 25 mg IVPUSH Q6H PRN PRN Reason: Pruritis Stop: 10/13/16 12:00 Ephedrine Sulfate (Ephedrine In Ns) Confirm Administered Dose 25 mg .ROUTE .STK- MED ONE Stop: 10/13/16 08:11 Fentanyl (Sublimaze) Confirm Administered Dose 100 mcg .ROUTE .STK-MED ONE Stop: 10/13/16 07:17 Fentanyl (Sublimaze) Confirm Administered Dose 100 mcg .ROUTE .STK-MED ONE Stop: 10/13/16 08:33 Fentanyl (Sublimaze) 50 mcg IVPUSH Q5M PRN PRN Reason: Pain Stop: 10/13/16 09:00 Lactated Ringer's (Ringers, Lactated) 1,000 mls @ 125 mls/hr IV ASDIRECTED [facility] Lactated Ringer's (Ringers, Lactated) 1,000 mls @ 125 mls/hr IV ASDIRECTED [facility] Stop: 10/13/16 23:00 Last Admin: 10/13/16 06:45 Dose: 125 mls/hr Cefazolin Sodium/Dextrose 2 gm (/ Premix) 50 mls @ 100 mls/hr IV Q8H [facility] Stop: 10/13/16 23:29 Last Admin: 10/14/16 04:17 Dose: Not Given Cefazolin Sodium/Dextrose 2 gm (/ Premix) 50 mls @ 100 mls/hr IV Q8H [facility] Stop: 10/14/16 07:29 Last Admin: 10/14/16 06:52 Dose: 100 mls/hr Iodine (Iodine 2% Mild Tincture) Confirm Administered Dose 30 ml .ROUTE .STK- MED ONE Stop: 10/13/16 06:30 Last Admin: 10/13/16 08:33 Dose: 18 ml Ketorolac Tromethamine (Toradol) 15 mg IVPUSH ONETIME ONE Stop: 10/13/16 23:13 Last Admin: 10/13/16 23:35 Dose: 15 mg Ketorolac Tromethamine (Toradol) 15 mg IVPUSH ONETIME ONE Stop: 10/14/16 10:16 Last Admin: 10/14/16 11:36 Dose: 15 mg Lidocaine/Sodium Bicarbonate (Buffered Lidocaine 1% In Ns 8.4%) 0.25 ml IV ONETIME PRN PRN Reason: Prior to IV Start Lidocaine/Sodium Bicarbonate (Buffered Lidocaine 1% In Ns 8.4%) 0.25 ml IV ONETIME PRN PRN Reason: Prior to IV Start Stop: 10/13/16 12:00 Last Admin: 10/13/16 06:45 Dose: 0.25 ml Meperidine HCl (Demerol) 12.5 mg IVPUSH ONETIME PRN PRN Reason: Shivering Stop: 10/13/16 12:00 Midazolam HCl (Versed 1 Mg/Ml) Confirm Administered Dose 2 mg .ROUTE .STK-MED ONE Stop: 10/13/16 07:17 Morphine Sulfate (Duramorph Pf) Confirm Administered Dose 10 mg .ROUTE .STK-MED ONE Stop: 10/13/16 07:17 Multivitamins (Thera) 1 each PO WITHBREAKFAST [facility] Naloxone HCl (Narcan) 0.1 mg IVPUSH Q5M PRN PRN Reason: Oversedation Stop: 10/13/16 06:56 Non-Formulary Medication (Multivitamin) 1 tab PO DAILY [facility] Ondansetron HCl (Zofran) 4 mg IVPUSH ONETIME PRN PRN Reason: Nausea/Vomiting Stop: 10/13/16 12:00 Phenylephrine HCl (Phenylephrine In Ns 100 Mcg/Ml) Confirm Administered Dose 1 mg .ROUTE .STK-MED ONE Stop: 10/13/16 08:43 Pneumococcal Polyvalent Vaccine (Pneumovax 23) 0.5 ml IM .ONCE ONE Stop: 10/13/16 12:01 Propofol (Diprivan 20 Ml) Confirm Administered Dose 400 mg .ROUTE .STK-MED ONE Stop: 10/13/16 07:17 Propofol (Diprivan 20 Ml) Confirm Administered Dose 200 mg .ROUTE .STK-MED ONE Stop: 10/13/16 08:20 Propofol (Diprivan 20 Ml) Confirm Administered Dose 200 mg .ROUTE .STK-MED ONE Stop: 10/13/16 08:39 Propofol (Diprivan 20 Ml) Confirm Administered Dose 200 mg .ROUTE .STK-MED ONE Stop: 10/13/16 08:54 Sodium Chloride (Saline Flush) 10 ml FLUSH ASDIRECTED PRN PRN Reason: Keep Vein Open Sodium Chloride (Saline Flush) 10 ml FLUSH ASDIRECTED PRN PRN Reason: Keep Vein Open Stop: 10/13/16 12:00 Tranexamic Acid (Cyklokapron) Confirm Administered Dose 1,000 mg .ROUTE .STK- MED ONE Stop: 10/13/16 06:30 Last Admin: 10/13/16 08:51 Dose: 1,000 mg Venlafaxine HCl (Effexor Xr) 75 mg PO DAILY [facility] *Q Meaningful Use (DIS) - VTE *Q VTE Criteria *Q: - Stroke *Q Stroke Criteria *Q: - AMI *Q AMI Criteria *Q:
[2016-10-15 13:01] VITALS: BP 126/78
== END 2016-10-15 14:52 | disposition home or self-care (01) | DRG 470 ==
LOC: JD.OB 05:57
PROVIDERS: ADMIT Orthopaedic Surgery; ATTEND Orthopaedic Surgery
PROC: 0SRD0J9 Replacement of Left Knee Joint with Synthetic Substitute, Cemented, Open Approach (ICD-10-PCS; principal; 2016-10-13)
PROC: 0SPD04Z Removal of Internal Fixation Device from Left Knee Joint, Open Approach (ICD-10-PCS; 2016-10-13)
DX: M17.12 Unilateral primary osteoarthritis, left knee (principal); G89.29 Other chronic pain; F32.9 Major depressive disorder, single episode, unspecified; I10 Essential (primary) hypertension; G47.00 Insomnia, unspecified; E55.9 Vitamin D deficiency, unspecified; F17.210 Nicotine dependence, cigarettes, uncomplicated; G47.10 Hypersomnia, unspecified; R91.8 Other nonspecific abnormal finding of lung field; E66.9 Obesity, unspecified; Z91.030 Bee allergy status; Z68.33 Body mass index [BMI] 33.0-33.9, adult; Z90.710 Acquired absence of both cervix and uterus; Z79.82 Long term (current) use of aspirin
CPT/HCPCS: 01402; 36415; 73560-26-LT; 73560-LT; 80053; 85025; 90732; 94762; 97110-GP; 97116-GP; 97162-GP; 97166-GO; 97535-GO; A9270-GY; C1713; C1776; J0171; J0690; J0697; J1200; J1885; J2250; J2270; J2704; J3010; J3490; J7050; J7120

== ENCOUNTER 2017-01-26 09:15 | Inpatient (IN) | payer MEDICAID ==
[2017-02-02] MEDS ORDERED: diphenhydrAMINE 50 MG/ML SDV IVPUSH PRN (06:37)
[2017-02-02] MEDS ORDERED: Sennosides 8.6 MG Tab PO PRN (06:37)
[2017-02-02] MEDS ORDERED: Naloxone 0.4 MG/ML SDV IVPUSH PRN (06:37)
[2017-02-02] MEDS ORDERED: Magnesium Hydroxide 400 MG/5 ML Susp 30 ML Cup PO PRN (06:37)
[2017-02-02] MEDS ORDERED: Bisacodyl 5 MG Tab PO PRN (06:37)
[2017-02-02] MEDS ORDERED: Lactated Ringers 1,000 ML IV SCH (07:00)
[2017-02-02] MEDS ORDERED: Lidocaine 1%/Sod Bicarbonate in NS 8.4% 1 ML Syringe IV PRN (07:00)
[2017-02-02] MEDS ORDERED: Sodium Chloride 0.9% 10 ML Syringe FLUSH PRN (07:00)
[2017-02-02] MEDS ORDERED: Propofol 200 MG/20 ML SDV ONE ×6 (08:38→12:12)
[2017-02-02] MEDS ORDERED: ceFAZolin 1 GM Vial ONE ×2 (08:38→09:05)
[2017-02-02] MEDS ORDERED: Morphine PF 10 MG/10 ML SDV ONE (08:39)
[2017-02-02] MEDS ORDERED: Midazolam 1 MG/ML 2 ML SDV ONE ×3 (08:39→12:12)
[2017-02-02] MEDS ORDERED: fentaNYL 100 MCG/2 ML SDV ONE (08:39)
[2017-02-02] MEDS ORDERED: Bupivacaine 0.25% 30 ML SDV ONE (09:05)
[2017-02-02] MEDS ORDERED: Iodine/Sodium Iodide 2% Tincture 30 ML Bottle ONE (09:05)
[2017-02-02] MEDS ORDERED: Vancomycin 1 GM SDV ONE (09:06)
--- NOTE | 2017-02-02 09:38 | PCM.PREANE ---
Preanesthetic Assessment - Anesthesia/Transfusion/Family Hx Anesthesia History: Prior Anesthesia Without Reaction Family History of Anesthesia Reaction: No Transfusion History: No Prior Transfusion(s) Type of Transfusion Reactions: Reports: Unknown Intubation History: Unknown - Review of Systems General: Other (Sinus Drainage) Pulmonary: No Symptoms Cardiovascular: No Symptoms Gastrointestinal: No Symptoms Neurological: No Symptoms Other: Reports: None - Physical Assessment NPO Status Date: 02/01/17 NPO Status Time: 23:00 Pulse: 71 O2 Sat by Pulse Oximetry: 94 Respiratory Rate: 16 Blood Pressure: 151/88 Temperature: 98.7 C Height: 1.7 m Weight: 105.596 kg ASA Class: 3 Mental Status: Alert & Oriented x3 Airway Class: Mallampati = 2 Dentition: Reports: Normal Dentition Thyro-Mental Finger Breadths: 2 Mouth Opening Finger Breadths: 3 ROM/Head Extension: Full Lungs: Clear to Auscultation, Normal Respiratory Effort Cardiovascular: Regular Rate, Regular Rhythm - Lab Values: Laboratory Last Values MRSA (PCR) Negative 01/21/17 13:56 - Imaging/EKG Impressions: Reviewed SR - Allergies Allergies/Adverse Reactions: Allergies Allergy/AdvReac Type Severity Reaction Status Date / Time bee venom protein (honey bee) Allergy Anaphylactic Verified 01/30/17 15:02 Shock - Acknowledgements Anesthesia Type Planned: Spinal Pt an Appropriate Candidate for the Planned Anesthesia: Yes Alternatives and Risks of Anesthesia Discussed w Pt/Guardian: Yes Pt/Guardian Understands and Agrees with Anesthesia Plan: Yes PreAnesthesia Questionnaire Cardiovascular History: Reports: Hypertension Respiratory History: Reports: Pneumonia, Recurrent, Other (See Below) Other Respiratory History: cough, mediastinal cyst, lung mass Gastrointestinal History: Reports: None MEDICATION ASSISTANT History: Reports: , Other (See Below) Other OB/BYN History: hot flashes, menopausal, decreased libido Musculoskeletal History: Reports: Arthritis, Back Pain, Chronic, Other (See Below) Other Musculoskeletal History: chronic pain, hammertoe L foot, multiple joint pain, low back pain Neurological History: Reports: None Psychiatric History: Reports: Anxiety, Depression, Other (See Below) Other Psychiatric History: fatigue, insomnia, hypersomnia, opiod withdrawl Endocrine/Metabolic History: Reports: Vitamin D Deficiency Hematologic History: Reports: None Immunologic History: Reports: None Oncologic (Cancer) History: Reports: None Dermatologic History: Reports: None, Other (See Below) Other Dermatologic History: tinea corporis - Infectious Disease History Infectious Disease History: Reports: Influenza - Past Surgical History HEENT Surgical History: Reports: Other (See Below) Other HEENT Surgeries/Procedures: simple excision of lingual cyst Respiratory Surgical History: Reports: Thoracotomy GI Surgical History: Reports: None Female Surgical History: Reports: Hysterectomy Male Surgical History: Reports: None Endocrine Surgical History: Reports: None Musculoskeletal Surgical History: Reports: Other (See Below) Other Musculoskeletal Surgeries/Procedures:: left knee ACL and meniscus repair. right foot surgery. - SUBSTANCE USE Smoking Status *Q: Current Every Day Smoker Tobacco Use Within Last Twelve Months: Cigarettes Second Hand Smoke Exposure: Yes Days Per Week of Alcohol Use: 4 Number of Drinks Per Day: 3 Total Drinks Per Week: 12 Recreational Drug Use History: No - HOME MEDS Home Medications: Home Meds Albuterol Sulfate [Proair Hfa] 1 - 2 puff INH Q4H PRN 10/09/16 [History] Aspirin/Acetaminophen/Caffeine [Migraine Formula Caplet] 1 tab PO TID PRN [History] Cholecalciferol (Vitamin D3) [Vitamin D3] 50,000 unit PO MO 10/09/16 [History] Venlafaxine [Effexor XR] 75 mg PO DAILY 10/13/16 [History] Biotin 1 mg PO DAILY 01/30/17 [History] EPINEPHrine [Epipen] 1 dose IM ONETIME PRN 01/30/17 [History] Naproxen 500 mg PO BID 01/30/17 [History] - CURRENT (IN HOUSE) MEDS Current Meds: Current Medications Aspirin (Ecotrin) 325 mg PO BID [facility] Bisacodyl (Dulcolax) 5 mg PO DAILY PRN PRN Reason: Constipation Morphine Sulfate 8 mg/Epinephrine HCl 0.3 mg/Cefuroxime Sodium 750 mg/Ketorolac Tromethamine 30 mg/Sodium Chloride 27.9 ml 0 mg .XX ONETIME ONE Stop: 02/02/17 11:01 Cyclobenzaprine HCl (Flexeril) 10 mg PO TID PRN PRN Reason: Spasms Diphenhydramine HCl (Benadryl) 25 mg IVPUSH Q4H PRN PRN Reason: Nausea Docusate Sodium (Colace) 100 mg PO BID [facility] Famotidine (Pepcid) 20 mg PO Q12H [facility] Lactated Ringer's (Ringers, Lactated) 1,000 mls @ 125 mls/hr IV ASDIRECTED [facility] Cefazolin Sodium/Dextrose 2 gm (/ Premix) 50 mls @ 100 mls/hr IV Q8H [facility] Stop: 02/02/17 23:14 Lidocaine/Sodium Bicarbonate (Buffered Lidocaine 1% In Ns 8.4%) 0.25 ml IV ONETIME PRN PRN Reason: Prior to IV Start Stop: 02/02/17 18:00 Magnesium Hydroxide (Milk Of Magnesia) 30 ml PO BID PRN PRN Reason: Constipation Morphine Sulfate (Morphine) 2 mg IVPUSH Q2H PRN PRN Reason: Breakthrough Pain Naloxone HCl (Narcan) 0.1 mg IVPUSH Q5M PRN PRN Reason: Oversedation Ondansetron HCl (Zofran) 4 mg IVPUSH Q6H PRN PRN Reason: Nausea/Vomiting Oxycodone/Acetaminophen (Percocet 325-5 Mg) 1 - 2 tab PO Q4H PRN PRN Reason: Pain Senna (Senna) 8.6 mg PO BID PRN PRN Reason: Constipation Sodium Chloride (Saline Flush) 10 ml FLUSH ASDIRECTED PRN PRN Reason: Keep Vein Open Discontinued Medications Bupivacaine HCl (Marcaine 0.25%) Confirm Administered Dose 30 ml .ROUTE .STK- MED ONE Stop: 02/02/17 09:06 Cefazolin Sodium (Ancef) Confirm Administered Dose 2 gm .ROUTE .STK-MED ONE Stop: 02/02/17 08:39 Cefazolin Sodium (Ancef) Confirm Administered Dose 2 gm .ROUTE .STK-MED ONE Stop: 02/02/17 09:06 Fentanyl (Sublimaze) Confirm Administered Dose 100 mcg .ROUTE .STK-MED ONE Stop: 02/02/17 08:40 Iodine (Iodine 2% Mild Tincture) Confirm Administered Dose 30 ml .ROUTE .STK- MED ONE Stop: 02/02/17 09:06 Midazolam HCl (Versed 1 Mg/Ml) Confirm Administered Dose 2 mg .ROUTE .STK-MED ONE Stop: 02/02/17 08:40 Morphine Sulfate (Duramorph Pf) Confirm Administered Dose 10 mg .ROUTE .STK-MED ONE Stop: 02/02/17 08:40 Propofol (Diprivan 20 Ml) Confirm Administered Dose 400 mg .ROUTE .STK-MED ONE Stop: 02/02/17 08:39 Tranexamic Acid (Cyklokapron) Confirm Administered Dose 1,000 mg .ROUTE .STK- MED ONE Stop: 02/02/17 09:06 Vancomycin HCl (Vancomycin) Confirm Administered Dose 1 gm .ROUTE .STK-MED ONE Stop: 02/02/17 09:07
[2017-02-02] MEDS: Morphine 8 MG, EPINEPHrine 0.3 MG, Cefuroxime 750 MG, Ketorolac 30 MG, Sodium Chloride ... ONE ×10 (11:46→19:38)
[2017-02-02] MEDS ORDERED: Phenylephrine 1% 10 MG/ML SDV ONE (12:12)
[2017-02-02] MEDS ORDERED: ePHEDrine 50 MG/ML SDV ONE (12:12)
[2017-02-02] MEDS ORDERED: Ketamine 500 mg/10 ML MDV ONE (12:12)
[2017-02-02] MEDS ORDERED: Lactated Ringers 1,000 ML ONE ×3 (12:12)
--- NOTE | 2017-02-02 12:35 | PCM.POSTAN ---
POST ANESTHESIA ASSESSMENT - MENTAL STATUS Mental Status: Alert, Oriented - VITAL SIGNS Pulse Rate: 91 SaO2: 100 Resp Rate: 16 Blood Pressure: 92/42 Temperature: 98.2 F - RESPIRATORY Respiratory Status: Respiratory Rate WNL, Airway Patent, O2 Saturation Stable - CARDIOVASCULAR CV Status: Pulse Rate WNL, Blood Pressure Stable - GASTROINTESTINAL GI Status: No Symptoms - POST OP HYDRATION Hydration Status: Adequate & Stable
[2017-02-02] MEDS ORDERED: FLU Vacc QS 2017-18 (6mos UP)/PF 60 MCG/0.5 ML Syringe IM ONE (12:45)
--- NOTE | 2017-02-02 14:05 | CR ---
Right knee: AP and lateral views of the right knee were obtained. Comparison: Previous right knee exam of 09/07/1915. Knee prosthesis is seen. Components are aligned. Underlying bony structures are intact. Soft tissue air is noted from the surgical procedure. Impression: 1. Satisfactory postoperative radiographic appearance of recently placed right knee prosthesis. Diagnostic code #2
[2017-02-02] MEDS: Acetaminophen/oxyCODONE 325-5 MG Tab PO PRN ×2 (14:41→19:55)
--- NOTE | 2017-02-02 15:35 | PCM.CONS ---
H&P History of Present Illness - General Date of Service: 02/02/17 Admit Problem/Dx: Admission Diagnosis/Problem Admission Diagnosis/Problem Osteoarthritis of knee Source of Information: Patient, Family, Old Records, Provider, RN, RN Notes Reviewed, Other (surgical notes ) History Limitations: Reports: No Limitations - History of Present Illness Initial Comments - Free Text/Narative: Nelly Horne is a 51 yo female pt. of Dr. Rossi who is post-op day 0 for right TKA. Hospitalist medicine is consulted for medical management. She is lying in bed. She rates her knee pain at 6/10 and reports she was recently given percocet for pain. She denies any CP, SOB, palpitations, nausea or vomiting. She carries a history of HTN, right lung mass, chronic low back pain, anxiety, depression, and vitamin D deficiency. She is a full code. Her PCP is Dr. Marcos, here at [facility]. R Knee Pain Score (Numeric/FACES): 6 - Related Data Allergies/Adverse Reactions: Allergies Allergy/AdvReac Type Severity Reaction Status Date / Time bee venom protein (honey bee) Allergy Anaphylactic Verified 02/02/17 10:04 Shock Home Medications: Home Meds Albuterol Sulfate [Proair Hfa] 1 - 2 puff INH Q4H PRN 10/09/16 [History] Aspirin/Acetaminophen/Caffeine [Migraine Formula Caplet] 1 tab PO TID PRN [History] Cholecalciferol (Vitamin D3) [Vitamin D3] 50,000 unit PO MO 10/09/16 [History] Venlafaxine [Effexor XR] 75 mg PO DAILY 10/13/16 [History] Biotin 1 mg PO DAILY 01/30/17 [History] EPINEPHrine [Epipen] 1 dose IM ONETIME PRN 01/30/17 [History] Naproxen 500 mg PO BID 01/30/17 [History] Past Medical History Cardiovascular History: Reports: Hypertension Respiratory History: Reports: Pneumonia, Recurrent, Other (See Below) Other Respiratory History: cough, mediastinal cyst, lung mass Gastrointestinal History: Reports: None 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: , Other (See Below) Other OB/BYN History: hot flashes, menopausal, decreased libido Musculoskeletal History: Reports: Arthritis, Back Pain, Chronic, Other (See Below) Other Musculoskeletal History: chronic pain, hammertoe L foot, multiple joint pain, low back pain Neurological History: Reports: None Psychiatric History: Reports: Anxiety, Depression, Other (See Below) Other Psychiatric History: fatigue, insomnia, hypersomnia, opiod withdrawl Endocrine/Metabolic History: Reports: Vitamin D Deficiency Hematologic History: Reports: None Immunologic History: Reports: None Oncologic (Cancer) History: Reports: None Dermatologic History: Reports: None, Other (See Below) Other Dermatologic History: tinea corporis - Infectious Disease History Infectious Disease History: Reports: Influenza - Past Surgical History HEENT Surgical History: Reports: Other (See Below) Other HEENT Surgeries/Procedures: simple excision of lingual cyst Respiratory Surgical History: Reports: Thoracotomy GI Surgical History: Reports: None Female Surgical History: Reports: Hysterectomy Endocrine Surgical History: Reports: None Musculoskeletal Surgical History: Reports: Other (See Below) Other Musculoskeletal Surgeries/Procedures:: left knee ACL and meniscus repair. right foot surgery. Social & Family History - Family History Family Medical History: Noncontributory - Tobacco Use Smoking Status *Q: Current Every Day Smoker Years of Tobacco use: 35 Packs/Tins Daily: 0.2 Used Tobacco, but Quit: No Month Tobacco Last Used: August Second Hand Smoke Exposure: Yes - Caffeine Use Caffeine Use: Reports: Coffee - Alcohol Use Days Per Week of Alcohol Use: 4 Number of Drinks Per Day: 3 Total Drinks Per Week: 12 - Recreational Drug Use Recreational Drug Use: No Drug Use in Last 12 Months: No H&P Review of Systems - Review of Systems: Review Of Systems: See Below General: Reports: No Symptoms. Denies: Fever, Chills, Malaise, Weakness HEENT: Reports: No Symptoms. Denies: Dysphasia, Ear Pain, Eye Pain, Headaches, Sore Throat Pulmonary: Reports: No Symptoms. Denies: Shortness of Breath, Wheezing, Pleuritic Chest Pain Cardiovascular: Reports: No Symptoms. Denies: Chest Pain, Palpitations, Dyspnea on Exertion, Edema Gastrointestinal: Reports: No Symptoms. Denies: Abdominal Pain, Anorexia, Black Stool, Constipation, Diarrhea, Nausea, Vomiting Genitourinary: Reports: No Symptoms. Denies: Dysuria, Frequency, Burning, Pain , Urgency Musculoskeletal: Reports: Joint Pain (6/10 right knee, post surgical ). Denies : Neck Pain, Shoulder Pain, Arm Pain, Back Pain Skin: Reports: No Symptoms. Denies: Cyanosis, Jaundice, Mottled Psychiatric: Reports: Depression (hx/o), Anxiety (hx/o). Denies: Confusion, Mood Lability Neurological: Reports: No Symptoms. Denies: Confusion, Dizziness, Headache, Numbness Hematologic/Lymphatic: Reports: No Symptoms Immunologic: Reports: No Symptoms Review of Systems Comment:: She denies any concerns at this time aside from right knee pain. Exam - Exam Exam: See Below - Vital Signs Vital Signs: Last Vital Signs Temp 98.6 F 02/02/17 13:30 Pulse 91 02/02/17 12:34 Resp 16 02/02/17 13:30 BP 97/55 L 02/02/17 13:30 Pulse Ox 95 02/02/17 13:30 Weight: 224 lb 6.4 oz - Exam Quality Assessment: Urinary Catheter, DVT Prophylaxis General: Alert, Oriented, Cooperative HEENT: Conjunctiva Clear, EACs Clear, Hearing Intact, Mucosa Moist & [place], Nares Patent, Normal Nasal Septum, Posterior Pharynx Clear, Pupils Equal, Pupils Reactive Neck: Supple, Trachea Midline. No: JVD Lungs: Clear to Auscultation, Normal Respiratory Effort Cardiovascular: Regular Rate, Regular Rhythm GI/Abdominal Exam: Normal Bowel Sounds, Soft, Non-Tender, No Organomegaly, No Distention, No Abnormal Bruit, No Mass (Female) Exam: Deferred Rectal (Female) Exam: Deferred Back Exam: Normal Inspection, Full Range of Motion Extremities: Normal Range of Motion, No Pedal Edema, Normal Capillary Refill, Other (Right knee pain 6/10. Right leg bandaged-bandage dry and intact ) Peripheral Pulses: 2+: Radial (L), Radial (R), Posterior Tibial (L), Posterior Tibial (R), Dorsalis Pedis (L), Dorsalis Pedis (R) Skin: Warm, Dry, Intact Neurological: Cranial Nerves Intact (grossly ) Neuro Extensive - Mental Status: Alert, Oriented x3, Normal Mood/Affect, Normal Cognition, Memory Intact Neuro Extensive - Motor, Sensory, Reflexes: CN II-XII Intact (grossly ) Psychiatric: Alert, Normal Affect, Normal Mood Physical Exam Comments:: Patient is examined while lying in bed. She recently underwent a left TKA and is aware of the plan for her right knee. She reports pain is increasing and about a 6 out of 10 at this time. Otherwise no other complaints. No concerns noted. Consult PN Assessment/Plan POD#: 0 Procedures: Procedures ANTINUCLEAR ANTIBODIES (02/29/16) ASSAY ALKALINE PHOSPHATASE (03/03/16) ASSAY OF CREATININE (07/27/13) ASSAY OF FERRITIN (10/03/16) ASSAY OF FREE THYROXINE (02/29/16) ASSAY OF IRON (09/03/16) ASSAY OF PREALBUMIN (01/15/17) ASSAY OF SERUM ALBUMIN (01/15/17) ASSAY OF TRANSFERRIN (09/03/16) ASSAY THYROID STIM HORMONE (09/03/16) BLOOD TYPING SEROLOGIC ABO (07/27/13) BLOOD TYPING SEROLOGIC RH(D) (07/27/13) C-REACTIVE PROTEIN (02/29/16) CCP ANTIBODY (02/29/16) CHEST X-RAY 2VW FRONTAL&LATL (10/03/16) CHORIONIC GONADOTROPIN ASSAY (07/27/13) COMPLETE CBC AUTOMATED (01/15/17) COMPLETE CBC W/AUTO DIFF WBC (11/11/16) COMPREHEN METABOLIC PANEL (07/07/16) CT THORAX W/DYE (07/07/16) CULTURE SCREEN ONLY (06/30/16) EMERGENCY DEPT VISIT (05/21/16) FLUOROSCOPE EXAMINATION (09/15/13) INFLUENZA ASSAY W/OPTIC (06/30/16) LYME DISEASE ANTIBODY (03/03/16) METABOLIC PANEL TOTAL CA (01/15/17) MR-STAPH DNA AMP PROBE (10/02/16) PROTHROMBIN TIME (01/15/17) PT EVAL MOD COMPLEX 30 MIN (10/28/16) RBC ANTIBODY SCREEN (07/27/13) RBC SED RATE AUTOMATED (02/29/16) REMOVAL OF ANKLE/HEEL LESION (09/15/13) REPAIR BLADDER DEFECT (07/29/13) REPAIR OF LEG TENDON EACH (09/15/13) RHEUMATOID FACTOR TEST QUAL (02/29/16) ROUTINE VENIPUNCTURE (01/15/17) STREP A AG IA (06/30/16) THERAPEUTIC EXERCISES (10/28/16) THROMBOPLASTIN TIME PARTIAL (01/15/17) TISSUE EXAM BY PATHOLOGIST (07/29/13) URINALYSIS AUTO W/SCOPE (10/03/16) VAGINAL HYSTERECTOMY (07/29/13) VITAMIN B-12 (09/03/16) VITAMIN D 25 HYDROXY (09/03/16) X-RAY EXAM L-S SPINE 2/3 VWS (02/29/16) X-RAY EXAM OF KNEE 3 (05/19/16) X-RAY EXAM OF PELVIS (02/29/16) (1) Depression SNOMED Code(s): 02647936 Code(s): F32.9 - MAJOR DEPRESSIVE DISORDER, SINGLE EPISODE, UNSPECIFIED Priority: Medium Current Visit: Yes Qualifiers: Depression Type: unspecified Qualified Code(s): F32.9 - Major depressive disorder, single episode, unspecified (2) History of arthroplasty of left knee SNOMED Code(s): 903241718 Code(s): Z96.652 - PRESENCE OF LEFT ARTIFICIAL KNEE JOINT Priority: Low Current Visit: No (3) Hypertension SNOMED Code(s): 05273178 Code(s): I10 - ESSENTIAL (PRIMARY) HYPERTENSION Priority: Medium Current Visit: Yes Qualifiers: Hypertension type: unspecified Qualified Code(s): I10 - Essential (primary ) hypertension (4) Lung mass SNOMED Code(s): 740080281 Code(s): R91.8 - OTHER NONSPECIFIC ABNORMAL FINDING OF LUNG FIELD Priority : Low Current Visit: No (5) Osteoarthritis SNOMED Code(s): 686109151 Code(s): M19.90 - UNSPECIFIED OSTEOARTHRITIS, UNSPECIFIED SITE Priority: High Current Visit: Yes Qualifiers: Osteoarthritis location: knee Osteoarthritis type: primary Laterality: right Qualified Code(s): M17.11 - Unilateral primary osteoarthritis, right knee (6) S/P total knee arthroplasty SNOMED Code(s): 3146501952994, 8489555525756 Code(s): Z96.659 - PRESENCE OF UNSPECIFIED ARTIFICIAL KNEE JOINT Priority: High Current Visit: Yes Qualifiers: Laterality: right Qualified Code(s): Z96.651 - Presence of right artificial knee joint (7) Vitamin D deficiency SNOMED Code(s): 75964378 Code(s): E55.9 - VITAMIN D DEFICIENCY, UNSPECIFIED Priority: Low Current Visit: No Problem List Initiated/Reviewed/Updated: Yes Plan: I/P: Acute: Right knee pain, S/P right knee arthroplasty POD 0 -Pain management and DVT prophylaxis per primary care team -IS/RT -Monitor O2 saturation -O2 as needed -PT/OT Chronic: Obesity Vitamin D Deficiency - hold supplementation today Hypertension - BP low today, monitor History of right sided lung mass - stable History of left knee arthroplasty - stable Chronic low back pain - stable Anxiety - continue home meds Depression - continue home meds Plan: Home meds as indicated Routine labs CM/SW consult Thank you for the opportunity to participate in this patients care! Requesting Provider: Dr. Rossi Date Consult Requested: 02/02/17 Reason for Consult: Post-operative medical management Patient History Reviewed: Yes Admission H&P Reviewed: Yes Time Spent (in minutes): 45
[2017-02-02] MEDS: Cyclobenzaprine 10 MG Tab PO PRN ×2 (15:42→21:37)
[2017-02-02] MEDS: Famotidine 20 MG Tab PO SCH ×2 (15:42→17:45)
[2017-02-02] MEDS ORDERED: Albuterol 0.083% 2.5 MG/3 ML Neb Soln NEB PRN (15:59)
[2017-02-02] MEDS ORDERED: fentaNYL 100 MCG/2 ML SDV IVPUSH ONE ×2 (17:00→17:38)
[2017-02-02] MEDS: ceFAZolin 2 GM in Premix Bag 1 BAG IV SCH (17:03)
[2017-02-02] MEDS: Nicotine 7 MG/24 Hr Patch TRDERM SCH (18:19)
[2017-02-02] MEDS ORDERED: Non-Formulary Medication 1 Each (Cholecalciferol (Vitamin D3) [Vitamin D3] 50,000 UNIT) PO SCH (18:30)
[2017-02-02] MEDS ORDERED: Morphine 2 MG/ML Syringe IVPUSH PRN (20:57)
[2017-02-02] MEDS: Docusate Sodium 100 MG Cap PO SCH (22:21)
[2017-02-02] MEDS: Morphine 2 MG/ML Syringe IVPUSH PRN (22:34)
[2017-02-03] MEDS: Morphine 2 MG/ML Syringe IVPUSH PRN ×4 (01:20→15:37)
[2017-02-03] MEDS: ceFAZolin 2 GM in Premix Bag 1 BAG IV SCH ×2 (01:41→09:28)
--- NOTE | 2017-02-03 06:20 | PCM.CONSN ---
- General Info Date of Service: 02/03/17 Admission Dx/Problem (Free Text): Admission Diagnosis/Problem Admission Diagnosis/Problem Osteoarthritis of knee Functional Status: Reports: Tolerating Diet, Ambulating, Urinating, Incentive Spirometry. Denies: New Symptoms - Review of Systems General: Reports: No Symptoms HEENT: Reports: No Symptoms Pulmonary: Reports: No Symptoms Cardiovascular: Reports: No Symptoms Gastrointestinal: Reports: Nausea. Denies: Abdominal Pain, Constipation, Decreased Appetite, Vomiting Genitourinary: Reports: No Symptoms Musculoskeletal: Reports: Joint Pain (right knee 10/27 when I saw her) Skin: Reports: No Symptoms Neurological: Reports: No Symptoms Psychiatric: Reports: No Symptoms Systems Review Comment:: Patient reports pain that has been horrible (02/27) however in discussing this with nursing and PT/OT it appears the pain is fairly well controlled. I discussed this with Angela Woods PA-C with Dr. Rossi and she will adjust medications accordingly. Otherwise pt. had some mild nausea this AM which was relieved by zofran. She reports she has been urinating. - Patient Data Vitals - Most Recent: Last Vital Signs Temp 97.3 F 02/03/17 03:53 Pulse 83 02/03/17 03:53 Resp 16 02/03/17 03:53 BP 141/77 H 02/03/17 03:53 Pulse Ox 96 02/03/17 03:53 Weight - Most Recent: 237 lb 9.6 oz I&O - Last 24 Hours: Intake & Output 02/02/17 02/02/17 02/03/17 14:59 22:59 06:59 Intake Total 300 490 850 Output Total 1300 350 300 Balance -1000 140 550 Med Orders - Current: Current Medications Albuterol (Proventil Neb Soln) 2.5 mg NEB Q4HRRT PRN PRN Reason: Shortness of breath/wheezing Aspirin (Ecotrin) 325 mg PO BID GWEN Bisacodyl (Dulcolax) 5 mg PO DAILY PRN PRN Reason: Constipation Cyclobenzaprine HCl (Flexeril) 10 mg PO TID PRN PRN Reason: Spasms Last Admin: 02/02/17 21:37 Dose: 10 mg Diphenhydramine HCl (Benadryl) 25 mg IVPUSH Q4H PRN PRN Reason: Nausea Docusate Sodium (Colace) 100 mg PO BID [facility] Last Admin: 02/02/17 22:21 Dose: 100 mg Famotidine (Pepcid) 20 mg PO Q12H [facility] Last Admin: 02/02/17 17:45 Dose: Not Given Cefazolin Sodium/Dextrose 2 gm (/ Premix) 50 mls @ 100 mls/hr IV Q8H [facility] Stop: 02/03/17 10:29 Last Admin: 02/03/17 01:41 Dose: 100 mls/hr Magnesium Hydroxide (Milk Of Magnesia) 30 ml PO BID PRN PRN Reason: Constipation Miscellaneous Information (Remove Patch) 1 ea TRDERM DAILY [facility] Morphine Sulfate (Morphine) 2 mg IVPUSH Q2H PRN PRN Reason: Breakthrough Pain Last Admin: 02/03/17 03:20 Dose: 2 mg Morphine Sulfate (Morphine) 2 mg IVPUSH Q4H PRN PRN Reason: Pain (severe 7-10) Naloxone HCl (Narcan) 0.1 mg IVPUSH Q5M PRN PRN Reason: Oversedation Nicotine (Habitrol) 7 mg TRDERM DAILY [facility] Last Admin: 02/02/17 18:19 Dose: 7 mg Ondansetron HCl (Zofran) 4 mg IVPUSH Q6H PRN PRN Reason: Nausea/Vomiting Oxycodone/Acetaminophen (Percocet 325-5 Mg) 1 - 2 tab PO Q4H PRN PRN Reason: Pain Last Admin: 02/02/17 19:55 Dose: 2 tab Senna (Senna) 8.6 mg PO BID PRN PRN Reason: Constipation Sodium Chloride (Saline Flush) 10 ml FLUSH ASDIRECTED PRN PRN Reason: Keep Vein Open Venlafaxine HCl (Effexor Xr) 75 mg PO DAILY [facility] Discontinued Medications Bupivacaine HCl (Marcaine 0.25%) Confirm Administered Dose 30 ml .ROUTE .STK- MED ONE Stop: 02/02/17 09:06 Last Admin: 02/02/17 11:44 Dose: 30 ml Cefazolin Sodium (Ancef) Confirm Administered Dose 2 gm .ROUTE .STK-MED ONE Stop: 02/02/17 08:39 Last Admin: 02/02/17 11:00 Dose: 2 gm Cefazolin Sodium (Ancef) Confirm Administered Dose 2 gm .ROUTE .STK-MED ONE Stop: 02/02/17 09:06 Morphine Sulfate 8 mg/Epinephrine HCl 0.3 mg/Cefuroxime Sodium 750 mg/Ketorolac Tromethamine 30 mg/Sodium Chloride 27.9 ml 0 mg .XX ONETIME ONE Stop: 02/02/17 11:01 Last Admin: 02/02/17 19:38 Dose: Not Given Ephedrine Sulfate (Ephedrine Sulfate) Confirm Administered Dose 50 mg .ROUTE .STK-MED ONE Stop: 02/02/17 12:13 Fentanyl (Sublimaze) Confirm Administered Dose 100 mcg .ROUTE .STK-MED ONE Stop: 02/02/17 08:40 Fentanyl (Sublimaze) 50 mcg IVPUSH ONETIME ONE Stop: 02/02/17 17:01 Last Admin: 02/02/17 16:57 Dose: 50 mcg Fentanyl (Sublimaze) 50 mcg IVPUSH ONETIME ONE Stop: 02/02/17 17:39 Last Admin: 02/02/17 17:44 Dose: 50 mcg Lactated Ringer's (Ringers, Lactated) 1,000 mls @ 125 mls/hr IV ASDIRECTED [facility]EN Last Admin: 02/02/17 09:30 Dose: 125 mls/hr Lactated Ringer's (Ringers, Lactated) Confirm Administered Dose 1,000 mls @ as directed .ROUTE .STK-MED ONE Stop: 02/02/17 12:13 Lactated Ringer's (Ringers, Lactated) Confirm Administered Dose 1,000 mls @ as directed .ROUTE .STK-MED ONE Stop: 02/02/17 12:13 Lactated Ringer's (Ringers, Lactated) Confirm Administered Dose 1,000 mls @ as directed .ROUTE .STK-MED ONE Stop: 02/02/17 12:13 Influenza Virus Vaccine (Pharmacy To Dose - Influenza Vaccine) 1 each IM ONETIME ONE Stop: 02/02/17 12:42 Last Admin: 02/02/17 19:38 Dose: Not Given Influenza Virus Vaccine (Flulaval Quad 1436-3525) 60 mcg IM .ONCE ONE Stop: 02/02/17 12:46 Iodine (Iodine 2% Mild Tincture) Confirm Administered Dose 30 ml .ROUTE .STK- MED ONE Stop: 02/02/17 09:06 Last Admin: 02/02/17 11:44 Dose: 3 ml Ketamine HCl (Ketalar) Confirm Administered Dose 500 mg .ROUTE .STK-MED ONE Stop: 02/02/17 12:13 Lidocaine/Sodium Bicarbonate (Buffered Lidocaine 1% In Ns 8.4%) 0.25 ml IV ONETIME PRN PRN Reason: Prior to IV Start Stop: 02/02/17 18:00 Last Admin: 02/02/17 09:29 Dose: 0.25 ml Midazolam HCl (Versed 1 Mg/Ml) Confirm Administered Dose 2 mg .ROUTE .STK-MED ONE Stop: 02/02/17 08:40 Midazolam HCl (Versed 1 Mg/Ml) Confirm Administered Dose 2 mg .ROUTE .STK-MED ONE Stop: 02/02/17 12:13 Midazolam HCl (Versed 1 Mg/Ml) Confirm Administered Dose 2 mg .ROUTE .STK-MED ONE Stop: 02/02/17 12:13 Morphine Sulfate (Duramorph Pf) Confirm Administered Dose 10 mg .ROUTE .STK-MED ONE Stop: 02/02/17 08:40 Non-Formulary Medication (Biotin [Biotin]) 1 mg PO DAILY [facility] Non-Formulary Medication (Cholecalciferol (Vitamin D3) [Vitamin D3]) 50,000 unit PO MO [facility] Last Admin: 02/02/17 21:44 Dose: Not Given Phenylephrine HCl (Jose Francisco-Synephrine) Confirm Administered Dose 10 mg .ROUTE .STK- MED ONE Stop: 02/02/17 12:13 Propofol (Diprivan 20 Ml) Confirm Administered Dose 400 mg .ROUTE .STK-MED ONE Stop: 02/02/17 08:39 Propofol (Diprivan 20 Ml) Confirm Administered Dose 200 mg .ROUTE .STK-MED ONE Stop: 02/02/17 12:13 Propofol (Diprivan 20 Ml) Confirm Administered Dose 200 mg .ROUTE .STK-MED ONE Stop: 02/02/17 12:13 Propofol (Diprivan 20 Ml) Confirm Administered Dose 200 mg .ROUTE .STK-MED ONE Stop: 02/02/17 12:13 Propofol (Diprivan 20 Ml) Confirm Administered Dose 200 mg .ROUTE .STK-MED ONE Stop: 02/02/17 12:13 Propofol (Diprivan 20 Ml) Confirm Administered Dose 200 mg .ROUTE .STK-MED ONE Stop: 02/02/17 12:13 Tranexamic Acid (Cyklokapron) Confirm Administered Dose 1,000 mg .ROUTE .STK- MED ONE Stop: 02/02/17 09:06 Last Admin: 02/02/17 11:45 Dose: 1,000 mg Vancomycin HCl (Vancomycin) Confirm Administered Dose 1 gm .ROUTE .STK-MED ONE Stop: 02/02/17 09:07 Last Admin: 02/02/17 11:45 Dose: 1 gm - Exam Quality Assessment: DVT Prophylaxis General: Alert, Oriented, Cooperative HEENT: Pupils Equal, Pupils Reactive, Mucous Membr. Moist/[place] Neck: Supple, Trachea Midline, No JVD Lungs: Clear to Auscultation, Normal Respiratory Effort Cardiovascular: Regular Rate, Regular Rhythm GI/Abdominal Exam: Normal Bowel Sounds, Soft, Non-Tender, No Organomegaly, No Distention, No Mass Consult PN Assessment/Plan POD#: 1 Procedures: Procedures ANTINUCLEAR ANTIBODIES (02/29/16) ASSAY ALKALINE PHOSPHATASE (03/03/16) ASSAY OF CREATININE (07/27/13) ASSAY OF FERRITIN (10/03/16) ASSAY OF FREE THYROXINE (02/29/16) ASSAY OF IRON (09/03/16) ASSAY OF PREALBUMIN (01/15/17) ASSAY OF SERUM ALBUMIN (01/15/17) ASSAY OF TRANSFERRIN (09/03/16) ASSAY THYROID STIM HORMONE (09/03/16) BLOOD TYPING SEROLOGIC ABO (07/27/13) BLOOD TYPING SEROLOGIC RH(D) (07/27/13) C-REACTIVE PROTEIN (02/29/16) CCP ANTIBODY (02/29/16) CHEST X-RAY 2VW FRONTAL&LATL (10/03/16) CHORIONIC GONADOTROPIN ASSAY (07/27/13) COMPLETE CBC AUTOMATED (01/15/17) COMPLETE CBC W/AUTO DIFF WBC (11/11/16) COMPREHEN METABOLIC PANEL (07/07/16) CT THORAX W/DYE (07/07/16) CULTURE SCREEN ONLY (06/30/16) EMERGENCY DEPT VISIT (05/21/16) FLUOROSCOPE EXAMINATION (09/15/13) INFLUENZA ASSAY W/OPTIC (06/30/16) LYME DISEASE ANTIBODY (03/03/16) METABOLIC PANEL TOTAL CA (01/15/17) MR-STAPH DNA AMP PROBE (10/02/16) PROTHROMBIN TIME (01/15/17) PT EVAL MOD COMPLEX 30 MIN (10/28/16) RBC ANTIBODY SCREEN (07/27/13) RBC SED RATE AUTOMATED (02/29/16) REMOVAL OF ANKLE/HEEL LESION (09/15/13) REPAIR BLADDER DEFECT (07/29/13) REPAIR OF LEG TENDON EACH (09/15/13) RHEUMATOID FACTOR TEST QUAL (02/29/16) ROUTINE VENIPUNCTURE (01/15/17) STREP A AG IA (06/30/16) THERAPEUTIC EXERCISES (10/28/16) THROMBOPLASTIN TIME PARTIAL (01/15/17) TISSUE EXAM BY PATHOLOGIST (07/29/13) URINALYSIS AUTO W/SCOPE (10/03/16) VAGINAL HYSTERECTOMY (07/29/13) VITAMIN B-12 (09/03/16) VITAMIN D 25 HYDROXY (09/03/16) X-RAY EXAM L-S SPINE 2/3 VWS (02/29/16) X-RAY EXAM OF KNEE 3 (05/19/16) X-RAY EXAM OF PELVIS (02/29/16) (1) Depression SNOMED Code(s): 93153172 Code(s): F32.9 - MAJOR DEPRESSIVE DISORDER, SINGLE EPISODE, UNSPECIFIED Priority: Medium Current Visit: Yes Qualifiers: Depression Type: unspecified Qualified Code(s): F32.9 - Major depressive disorder, single episode, unspecified (2) History of arthroplasty of left knee SNOMED Code(s): 312599999 Code(s): Z96.652 - PRESENCE OF LEFT ARTIFICIAL KNEE JOINT Priority: Low Current Visit: No (3) Hypertension SNOMED Code(s): 87707619 Code(s): I10 - ESSENTIAL (PRIMARY) HYPERTENSION Priority: Medium Current Visit: Yes Qualifiers: Hypertension type: unspecified Qualified Code(s): I10 - Essential (primary ) hypertension (4) Lung mass SNOMED Code(s): 483252397 Code(s): R91.8 - OTHER NONSPECIFIC ABNORMAL FINDING OF LUNG FIELD Priority : Low Current Visit: No (5) Osteoarthritis SNOMED Code(s): 052565072 Code(s): M19.90 - UNSPECIFIED OSTEOARTHRITIS, UNSPECIFIED SITE Priority: High Current Visit: Yes Qualifiers: Osteoarthritis location: knee Osteoarthritis type: primary Laterality: right Qualified Code(s): M17.11 - Unilateral primary osteoarthritis, right knee (6) S/P total knee arthroplasty SNOMED Code(s): 0183229601583, 2841901064265 Code(s): Z96.659 - PRESENCE OF UNSPECIFIED ARTIFICIAL KNEE JOINT Priority: High Current Visit: Yes Qualifiers: Laterality: right Qualified Code(s): Z96.651 - Presence of right artificial knee joint (7) Vitamin D deficiency SNOMED Code(s): 12201602 Code(s): E55.9 - VITAMIN D DEFICIENCY, UNSPECIFIED Priority: Low Current Visit: No Problem List Initiated/Reviewed/Updated: Yes My Orders Last 24 Hours: My Active Orders 02/02/17 15:59 Albuterol [Proventil Neb Soln] 2.5 mg NEB Q4HRRT PRN 02/02/17 16:00 RT Aerosol Therapy [RC] .PRN 02/02/17 18:00 Nicotine [Habitrol] 7 mg TRDERM DAILY 02/03/17 09:00 Venlafaxine [Effexor XR] 75 mg PO DAILY Plan: I/P: Acute: Right knee pain, S/P right knee arthroplasty POD 1 -Pain management and DVT prophylaxis per primary care team -IS/RT -Monitor O2 saturation - weaned off O2 -PT/OT -Hgb 11.8 -Hct 34.4 -Creatinine 0.8 -eGFR >60 -She is hemodynamically stable -Vital signs stable -Nausea this AM relieved by zofran Chronic: Obesity Vitamin D Deficiency - hold supplementation today Hypertension - BP low today, monitor History of right sided lung mass - stable History of left knee arthroplasty - stable Chronic low back pain - stable Anxiety - continue home meds Depression - continue home meds Plan: Home meds as indicated Routine labs CM/SW consult From a hospitalist standpoint this patient is cleared for discharge pending ortho approval.
[2017-02-03] MEDS ORDERED: Ketorolac 15 MG/ML SDV IVPUSH ONE ×2 (06:23→18:00)
[2017-02-03] MEDS: Famotidine 20 MG Tab PO SCH ×2 (06:39→18:02)
[2017-02-03] MEDS: Acetaminophen/oxyCODONE 325-5 MG Tab PO PRN ×3 (08:19→17:01)
[2017-02-03] MEDS: Docusate Sodium 100 MG Cap PO SCH (08:20)
[2017-02-03] MEDS: Nicotine 7 MG/24 Hr Patch TRDERM SCH (08:21)
[2017-02-03] MEDS: Ondansetron 4 MG/2 ML SDV IVPUSH PRN ×2 (08:35→18:02)
[2017-02-03] MEDS ORDERED: Aspirin 325 MG Tab.EC PO SCH (09:00)
[2017-02-03] MEDS ORDERED: Remove Patch **NICOTINE TRDERM SCH (09:00)
[2017-02-03] MEDS ORDERED: Venlafaxine 75 MG Cap.ER PO SCH (09:00)
[2017-02-03] MEDS ORDERED: Non-Formulary Medication 1 Each (Biotin [Biotin] 1 MG) PO SCH (09:00)
[2017-02-03] MEDS ORDERED: Oxybutynin 5 MG Tab PO PRN (09:05)
--- NOTE | 2017-02-03 12:01 | PCM48HPAN ---
Post Anesthesia Note - EVALUATION WITHIN 48HRS OF ANESTHETIC Vital Signs in Normal Range: Yes Patient Participated in Evaluation: Yes Respiratory Function Stable: Yes Airway Patent: Yes Cardiovascular Function Stable: Yes Hydration Status Stable: Yes Pain Control Satisfactory: Yes Nausea and Vomiting Control Satisfactory: Yes Mental Status Recovered: Yes - COMMENTS/OBSERVATIONS Free Text/Narrative:: Patient denied any headaches, residual numbness/ tingling to LE, or back pain.
[2017-02-03] MEDS ORDERED: oxyCODONE 5 MG Tab PO PRN (13:09)
[2017-02-03 17:07] VITALS: BP 127/81
[2017-02-03] MEDS: Cyclobenzaprine 10 MG Tab PO PRN (18:02)
[2017-02-03] MEDS ORDERED: Ondansetron 4 MG Tab.DIS PO PRN (18:19)
--- NOTE | 2017-02-05 22:40 | PCM.OPNOTE ---
- General Post-Op/Procedure Note Date of Surgery/Procedure: 02/02/17 Operative Procedure(s): right total knee arthroplasty with deep hardware removal Pre Op Diagnosis: right knee osteoarthrosis with previous ACL hardware Post-Op Diagnosis: Same Anesthesia Technique: Local, MAC, Spinal Primary Surgeon: Washington Rossi Anesthesia Provider: Esme Domingo Drill Press Set Up Operator Radial: Angela Woods [employer]ill Press Set Up Operator Radial: Nickie Bruce EBL in mLs: 600 Complications: None Condition: Good
--- NOTE | 2017-02-05 23:40 | OR ---
DATE OF OPERATION: 02/02/2017 SURGEON: Washington Rossi MD OPERATION PERFORMED: Right total knee arthroplasty with deep hardware removal. PREOPERATIVE DIAGNOSIS: Right knee osteoarthrosis with previous anterior cruciate ligament hardware. POSTOPERATIVE DIAGNOSIS: Right knee osteoarthrosis with previous anterior cruciate ligament hardware. ANESTHESIA: Local MAC with spinal. ANESTHESIA PROVIDER: Esme Domingo CRNA. ASSISTANTS: Angela Woods PA-C and Nickie Bruce LPN. ESTIMATED BLOOD LOSS: 600 mL. COMPLICATIONS: None. CONDITION: Stable. IMPLANTS: 1. [place] size 5 press-fit PS femur. 2. [place] size 4 press-fit tibia. 3. [place] size 9 mm PS X3 polyethylene. 4. [place] press-fit asymmetric 32 x 10 mm patella. DESCRIPTION OF PROCEDURE: The patient was identified in the preoperative holding area and proper site was marked and identified by surgeon. The patient at this time was taken back to the operating theater, where after adequate anesthesia, a nonsterile tourniquet was applied to the right lower extremity, and the right lower extremity was sterilely prepped and draped in the usual sterile fashion. OR time-out was performed. The patient received 2 g IV Ancef. At this time, the right lower extremity was exsanguinated. Tourniquet was insufflated to 300 mmHg. A standard medial parapatellar incision was made and a medial parapatellar arthrotomy was created. Deep fibers of the MCL were raised and anterior fat pad was resected. At this time, attention was turned to the patella. The patella measured a 24 and was resected to a 14 for a 32 x 10 mm patella. Drill holes were drilled for the press-fit patella. A drill hole was then placed in the distal femur. Intramedullary distal femoral cutting guide was then placed and 8 mm was dissected off the distal femur. This was found to be an adequate resection. Sizing guide was placed and it was found to be a size 5 femur. Epicondylar access holes were drilled using Ward line and epicondyles as reference. A 4-in-1 cutting block was then placed and anterior and posterior chamfer cuts were then completed and found to be adequate. A box cut was then completed for a size 5 femur. Attention was turned to the tibia. Posterior, medial, and lateral retractors were placed on the tibia. The extramedullary tibial cutting guide was then placed in the old footprint of the ACL and it was aligned with the center of the ankle and slope was set for roughly 0-3 degrees. At this time, 9 mm was measured off the less affected lateral side. At this time, the resection was carried out and it was found to be an adequate resection. We did run into the previous PEEK interference screw. The medial and lateral meniscus were removed along with any posterior osteophytes. Trial implants were then placed. The patient had full extension and flexion and was stable to varus and valgus stress with a 9-mm trial spacer. At this time, secondary to wanting to do a press-fit tibia, a [place] elevator along with an osteotome was used for removal of the previous PEEK Interference Screw in the tibia. This defect would be later bone grafted with the patient's autograft bone from previous cuts. At this time, the tibia was stamped and drilled in proper rotation for a press-fit tibia. The size 4 press-fit tibia was then impacted into place after the bone graft was impacted into the defect. Once this was seated well, the size 5 femur was impacted into place. A 9 mm PS X3 polyethylene was impacted in place. The patient's knee was brought to full extension. A 32 x 10 mm patella was then compressed into place in a press-fit technique. At this time, 1 L of dilute Betadine solution was irrigated through the knee along with 3 L of pulse lavage irrigation with Ancef. Periarticular injection was completed. Topical vancomycin powder as well as tranexamic acid was placed. A #2 barbed suture was used for a closure of the medial parapatellar arthrotomy, 2-0 Vicryl was used subcutaneously, and Monocryl was used for the skin along with Prineo. The patient tolerated, had a sterile soft dressing applied, and was then sent to PACU in stable condition. MARY /[id number] SEBASTIAN
--- NOTE | 2017-02-06 08:05 | PCM.SURGPN ---
- General Info Date of Service: 02/03/17 POD#: 1 Functional Status: Reports: Pain Controlled, Tolerating Diet, Ambulating, Urinating, Other (The pt has noted nausea and this has improved with medication. ) - Patient Data Vitals - Most Recent: Last Vital Signs Temp 97.3 F 02/03/17 16:04 Pulse 76 02/03/17 16:04 Resp 18 02/03/17 16:04 BP 127/81 02/03/17 16:04 Pulse Ox 97 02/03/17 16:04 Weight - Most Recent: 237 lb 9.6 oz Med Orders - Current: Current Medications Discontinued Medications Albuterol (Proventil Neb Soln) 2.5 mg NEB Q4HRRT PRN PRN Reason: Shortness of breath/wheezing Aspirin (Ecotrin) [address] [facility] Last Admin: 02/03/17 08:20 Dose: 325 mg Bisacodyl (Dulcolax) 5 mg PO DAILY PRN PRN Reason: Constipation Bupivacaine HCl (Marcaine 0.25%) Confirm Administered Dose 30 ml .ROUTE .STK- MED ONE Stop: 02/02/17 09:06 Last Admin: 02/02/17 11:44 Dose: 30 ml Cefazolin Sodium (Ancef) Confirm Administered Dose 2 gm .ROUTE .STK-MED ONE Stop: 02/02/17 08:39 Last Admin: 02/02/17 11:00 Dose: 2 gm Cefazolin Sodium (Ancef) Confirm Administered Dose 2 gm .ROUTE .STK-MED ONE Stop: 02/02/17 09:06 Morphine Sulfate 8 mg/Epinephrine HCl 0.3 mg/Cefuroxime Sodium 750 mg/Ketorolac Tromethamine 30 mg/Sodium Chloride 27.9 ml 0 mg .XX ONETIME ONE Stop: 02/02/17 11:01 Last Admin: 02/02/17 19:38 Dose: Not Given Cyclobenzaprine HCl (Flexeril) 10 mg PO TID PRN PRN Reason: Spasms Last Admin: 02/03/17 18:02 Dose: 10 mg Diphenhydramine HCl (Benadryl) 25 mg IVPUSH Q4H PRN PRN Reason: Nausea Docusate Sodium (Colace) [address] [facility] Last Admin: 02/03/17 08:20 Dose: 100 mg Ephedrine Sulfate (Ephedrine Sulfate) Confirm Administered Dose 50 mg .ROUTE .STK-MED ONE Stop: 02/02/17 12:13 Famotidine (Pepcid) [address] [facility] Last Admin: 02/03/17 18:02 Dose: 20 mg Fentanyl (Sublimaze) Confirm Administered Dose 100 mcg .ROUTE .STK-MED ONE Stop: 02/02/17 08:40 Fentanyl (Sublimaze) 50 mcg IVPUSH ONETIME ONE Stop: 02/02/17 17:01 Last Admin: 02/02/17 16:57 Dose: 50 mcg Fentanyl (Sublimaze) 50 mcg IVPUSH ONETIME ONE Stop: 02/02/17 17:39 Last Admin: 02/02/17 17:44 Dose: 50 mcg Lactated Ringer's (Ringers, Lactated) 1,000 mls @ 125 mls/hr IV ASDIRECTED [facility] Last Admin: 02/02/17 09:30 Dose: 125 mls/hr Cefazolin Sodium/Dextrose 2 gm (/ Premix) 50 mls @ 100 mls/hr IV Q8H [facility] Stop: 02/03/17 10:29 Last Admin: 02/03/17 09:28 Dose: 100 mls/hr Lactated Ringer's (Ringers, Lactated) Confirm Administered Dose 1,000 mls @ as directed .ROUTE .STK-MED ONE Stop: 02/02/17 12:13 Lactated Ringer's (Ringers, Lactated) Confirm Administered Dose 1,000 mls @ as directed .ROUTE .STK-MED ONE Stop: 02/02/17 12:13 Lactated Ringer's (Ringers, Lactated) Confirm Administered Dose 1,000 mls @ as directed .ROUTE .STK-MED ONE Stop: 02/02/17 12:13 Influenza Virus Vaccine (Pharmacy To Dose - Influenza Vaccine) 1 each IM ONETIME ONE Stop: 02/02/17 12:42 Last Admin: 02/02/17 19:38 Dose: Not Given Influenza Virus Vaccine (Flulaval Quad [id number]) 60 mcg IM .ONCE ONE Stop: 02/02/17 12:46 Iodine (Iodine 2% Mild Tincture) Confirm Administered Dose 30 ml .ROUTE .STK- MED ONE Stop: 02/02/17 09:06 Last Admin: 02/02/17 11:44 Dose: 18 ml Ketamine HCl (Ketalar) Confirm Administered Dose 500 mg .ROUTE .STK-MED ONE Stop: 02/02/17 12:13 Ketorolac Tromethamine (Toradol) 15 mg IVPUSH ONETIME ONE Stop: 02/03/17 06:24 Last Admin: 02/03/17 06:38 Dose: 15 mg Ketorolac Tromethamine (Toradol) 15 mg IVPUSH ONETIME ONE Stop: 02/03/17 18:01 Last Admin: 02/03/17 18:09 Dose: 15 mg Lidocaine/Sodium Bicarbonate (Buffered Lidocaine 1% In Ns 8.4%) 0.25 ml IV ONETIME PRN PRN Reason: Prior to IV Start Stop: 02/02/17 18:00 Last Admin: 02/02/17 09:29 Dose: 0.25 ml Magnesium Hydroxide (Milk Of Magnesia) 30 ml PO BID PRN PRN Reason: Constipation Midazolam HCl (Versed 1 Mg/Ml) Confirm Administered Dose 2 mg .ROUTE .STK-MED ONE Stop: 02/02/17 08:40 Midazolam HCl (Versed 1 Mg/Ml) Confirm Administered Dose 2 mg .ROUTE .STK-MED ONE Stop: 02/02/17 12:13 Midazolam HCl (Versed 1 Mg/Ml) Confirm Administered Dose 2 mg .ROUTE .STK-MED ONE Stop: 02/02/17 12:13 Miscellaneous Information (Remove Patch) [address] [facility] Last Admin: 02/03/17 08:22 Dose: 1 ea Morphine Sulfate (Morphine) 2 mg IVPUSH Q2H PRN PRN Reason: Breakthrough Pain Last Admin: 02/03/17 15:37 Dose: 2 mg Morphine Sulfate (Duramorph Pf) Confirm Administered Dose 10 mg .ROUTE .STK-MED ONE Stop: 02/02/17 08:40 Morphine Sulfate (Morphine) 2 mg IVPUSH Q4H PRN PRN Reason: Pain (severe 7-10) Naloxone HCl (Narcan) 0.1 mg IVPUSH Q5M PRN PRN Reason: Oversedation Nicotine (Habitrol) [address] [facility] Last Admin: 02/03/17 08:21 Dose: 7 mg Non-Formulary Medication (Biotin [Biotin]) [address] [facility] Non-Formulary Medication (Cholecalciferol (Vitamin D3) [Vitamin D3]) 50,000 unit PO MO [facility] Last Admin: 02/02/17 21:44 Dose: Not Given Ondansetron HCl (Zofran) 4 mg IVPUSH Q6H PRN PRN Reason: Nausea/Vomiting Last Admin: 02/03/17 18:02 Dose: 4 mg Ondansetron HCl (Zofran Odt) 4 mg PO Q4H PRN PRN Reason: Nausea/Vomiting Oxybutynin Chloride (Oxybutynin) 5 mg PO Q6H PRN PRN Reason: PAIN Oxycodone HCl (Oxycodone) 5 mg PO Q6H PRN PRN Reason: PAIN Last Admin: 02/03/17 15:05 Dose: 5 mg Oxycodone/Acetaminophen (Percocet 325-5 Mg) 1 - 2 tab PO Q4H PRN PRN Reason: Pain Last Admin: 02/03/17 17:01 Dose: 2 tab Phenylephrine HCl ([place]-Synephrine) Confirm Administered Dose 10 mg .ROUTE .STK- MED ONE Stop: 02/02/17 12:13 Propofol (Diprivan 20 Ml) Confirm Administered Dose 400 mg .ROUTE .STK-MED ONE Stop: 02/02/17 08:39 Propofol (Diprivan 20 Ml) Confirm Administered Dose 200 mg .ROUTE .STK-MED ONE Stop: 02/02/17 12:13 Propofol (Diprivan 20 Ml) Confirm Administered Dose 200 mg .ROUTE .STK-MED ONE Stop: 02/02/17 12:13 Propofol (Diprivan 20 Ml) Confirm Administered Dose 200 mg .ROUTE .STK-MED ONE Stop: 02/02/17 12:13 Propofol (Diprivan 20 Ml) Confirm Administered Dose 200 mg .ROUTE .STK-MED ONE Stop: 02/02/17 12:13 Propofol (Diprivan 20 Ml) Confirm Administered Dose 200 mg .ROUTE .STK-MED ONE Stop: 02/02/17 12:13 Senna (Senna) 8.6 mg PO BID PRN PRN Reason: Constipation Sodium Chloride (Saline Flush) 10 ml FLUSH ASDIRECTED PRN PRN Reason: Keep Vein Open Tranexamic Acid (Cyklokapron) Confirm Administered Dose 1,000 mg .ROUTE .STK- MED ONE Stop: 02/02/17 09:06 Last Admin: 02/02/17 11:45 Dose: 1,000 mg Vancomycin HCl (Vancomycin) Confirm Administered Dose 1 gm .ROUTE .STK-MED ONE Stop: 02/02/17 09:07 Last Admin: 02/02/17 11:45 Dose: 1 gm Venlafaxine HCl (Effexor Xr) 75 mg PO DAILY [facility] Last Admin: 02/03/17 08:20 Dose: 75 mg - Exam Wound/Incisions: Dressing Dry and Intact General: Alert, Cooperative, No Acute Distress Lungs: Normal Respiratory Effort Extremities: Other (NVS intact for BLE. [place]'s negative for BLE.) - Problem List Review Problem List Initiated/Reviewed/Updated: Yes - Assessment Assessment (Free Text/Narrative):: POD#1 - right TKA - Plan Plan (Free Text/Narrative):: 1. Discharge to home today. Inpatient therapy goals met and pt feels prepared for d/c to home. 2. Hgb11.8 today. 3. ASA 325mg BID for VTE prophylaxis. Dr. Rossi evaluated the pt today.
--- NOTE | 2017-02-06 08:09 | PCM.DCSUM1 ---
Discharge Summary - Hospital Course Brief History: Nelly is a 51 yo female who underwent right TKA with deep hardward removal with Dr. Rossi on 02-02-2017. The procedure was completed under spinal anesthesia. The pt tolerated the procedure well and was admitted to the Medical-Surgical Unit. Medical management was provided by the Hospitalist service. The pt's Hospital course was uneventful. The pt's Hgb on POD#1 was 11.8. On POD#1, 325mg BID was initiated for VTE prophylaxis. SCDs and TEDs were also ordered. A Mepilex dressing was placed at the incision site at the time of surgery and remained clean and dry. The pt participated in P.T. and O.T. and met inpatient therapy goals. The pt was allowed to WBAT. On POD#1 , the pt was deemed appropriate to discharge to home with her family. - Discharge Data Discharge Date: 02/03/17 Discharge Disposition: Home, Self-Care 01 Condition: Good - Patient Summary/Data Operative Procedure(s) Performed: right total knee arthroplasty with deep hardware removal Consults: Consultations 02/02/17 06:37 Consult to Physician [CONS] Routine OT Evaluation and Treatment [CONS] Routine 02/02/17 06:41 PT Evaluation and Treatment [CONS] Routine - Patient Instructions Diet: Usual Diet as Tolerated Activity: Apply Ice, As Tolerated, Elevate Extremity, Full Weight Bearing Driving: Do Not Drive Showering/Bathing: May Shower Wound/Incision Care: Keep Operative Site/Wound Site Clean and Dry, Do NOT Change Dressing Notify Provider of: Fever, Increased Pain, Swelling and Redness, Drainage, Nausea and/or Vomiting Other/Special Instructions: Please get up and moving around every hour while awake. This helps to prevent blood clots. Please use your walker and have help as needed. Take a 325mg ASPIRIN TWICE DAILY. This also helps to prevent blood clots. The aspirin is being used for blood clot prevention and not for pain management, so please do not miss a dose of the medication. Do the exercises you were taught in the Hospital. Schedule for P.T. Use the pain medication as needed. The medication may cause drowsiness and constipation. Contact your primary care provider for instructions if you are constipated. You may use a stool softener like docusate sodium or Colace 100mg twice daily and/or a laxative like Miralax daily for constipation. Use the ice machine often. Elevate the limb to decrease swelling. Keep the Mepilex dressing in place until follow-up at the Clinic. Notify the Clinic if the dressing is saturated. Wear the APPLE hose during the day and you may remove these at night. Eat a diet high in protein as this well help with healing. Schedule an appointment with your primary care provider for 'routine post-op care'. Call the Clinic with questions or concerns - [phone]. - Discharge Plan Prescriptions/Med Rec: Ondansetron [Zofran ODT] 4 mg PO Q6H PRN #20 tab.dis PRN Reason: Nausea Home Medications: Home Meds Albuterol Sulfate [Proair Hfa] 1 - 2 puff INH Q4H PRN 10/09/16 [History] Aspirin/Acetaminophen/Caffeine [Migraine Formula Caplet] 1 tab PO TID PRN [History] Cholecalciferol (Vitamin D3) [Vitamin D3] 50,000 unit PO MO 10/09/16 [History] Venlafaxine [Effexor XR] 75 mg PO DAILY 10/13/16 [History] Biotin 1 mg PO DAILY 01/30/17 [History] EPINEPHrine [Epipen] 1 dose IM ONETIME PRN 01/30/17 [History] Acetaminophen/oxyCODONE [Percocet 325-5 MG] 1 - 2 tab PO Q4H PRN #60 tablet [Rx] Aspirin [Ecotrin] 325 mg PO BID #60 tab.ec 02/03/17 [Rx] Cyclobenzaprine [Flexeril] 10 mg PO TID PRN #40 tablet 02/03/17 [Rx] Ondansetron [Zofran ODT] 4 mg PO Q6H PRN #20 tab.dis 02/03/17 [Rx] oxyCODONE 5 mg PO Q6H PRN #30 tablet 02/03/17 [Rx] Patient Handouts: Smoking Cessation, Tips for Success, [id number], Smoking Hazards, Total Knee Replacement, Care After, [id number], Total Knee Replacement, Fidp-[id number], Aspirin, ASA oral tablets, Knee Rehabilitation Guidelines Following Surgery Referrals: Angela Woods PA-C [Physician [facility]] - (Please see Angela Woods on Friday February 10, 2017 at 10:15 AM and on ThursdayFebruary 17 at 10:15 AM.) - Patient Data Vitals - Most Recent: Last Vital Signs Temp 97.3 F 02/03/17 16:04 Pulse 76 02/03/17 16:04 Resp 18 02/03/17 16:04 BP 127/81 02/03/17 16:04 Pulse Ox 97 02/03/17 16:04 Weight - Most Recent: 237 lb 9.6 oz Med Orders - Current: Current Medications Discontinued Medications Albuterol (Proventil Neb Soln) 2.5 mg NEB Q4HRRT PRN PRN Reason: Shortness of breath/wheezing Aspirin (Ecotrin) 325 mg PO BID [facility] Last Admin: 02/03/17 08:20 Dose: 325 mg Bisacodyl (Dulcolax) 5 mg PO DAILY PRN PRN Reason: Constipation Bupivacaine HCl (Marcaine 0.25%) Confirm Administered Dose 30 ml .ROUTE .STK- MED ONE Stop: 02/02/17 09:06 Last Admin: 02/02/17 11:44 Dose: 30 ml Cefazolin Sodium (Ancef) Confirm Administered Dose 2 gm .ROUTE .STK-MED ONE Stop: 02/02/17 08:39 Last Admin: 02/02/17 11:00 Dose: 2 gm Cefazolin Sodium (Ancef) Confirm Administered Dose 2 gm .ROUTE .STK-MED ONE Stop: 02/02/17 09:06 Morphine Sulfate 8 mg/Epinephrine HCl 0.3 mg/Cefuroxime Sodium 750 mg/Ketorolac Tromethamine 30 mg/Sodium Chloride 27.9 ml 0 mg .XX ONETIME ONE Stop: 02/02/17 11:01 Last Admin: 02/02/17 19:38 Dose: Not Given Cyclobenzaprine HCl (Flexeril) 10 mg PO TID PRN PRN Reason: Spasms Last Admin: 02/03/17 18:02 Dose: 10 mg Diphenhydramine HCl (Benadryl) 25 mg IVPUSH Q4H PRN PRN Reason: Nausea Docusate Sodium (Colace) 100 mg PO BID [facility] Last Admin: 02/03/17 08:20 Dose: 100 mg Ephedrine Sulfate (Ephedrine Sulfate) Confirm Administered Dose 50 mg .ROUTE .STK-MED ONE Stop: 02/02/17 12:13 Famotidine (Pepcid) 20 mg PO Q12H [facility] Last Admin: 02/03/17 18:02 Dose: 20 mg Fentanyl (Sublimaze) Confirm Administered Dose 100 mcg .ROUTE .STK-MED ONE Stop: 02/02/17 08:40 Fentanyl (Sublimaze) 50 mcg IVPUSH ONETIME ONE Stop: 02/02/17 17:01 Last Admin: 02/02/17 16:57 Dose: 50 mcg Fentanyl (Sublimaze) 50 mcg IVPUSH ONETIME ONE Stop: 02/02/17 17:39 Last Admin: 02/02/17 17:44 Dose: 50 mcg Lactated Ringer's (Ringers, Lactated) 1,000 mls @ 125 mls/hr IV ASDIRECTED [facility] Last Admin: 02/02/17 09:30 Dose: 125 mls/hr Cefazolin Sodium/Dextrose 2 gm (/ Premix) 50 mls @ 100 mls/hr IV Q8H [facility] Stop: 02/03/17 10:29 Last Admin: 02/03/17 09:28 Dose: 100 mls/hr Lactated Ringer's (Ringers, Lactated) Confirm Administered Dose 1,000 mls @ as directed .ROUTE .STK-MED ONE Stop: 02/02/17 12:13 Lactated Ringer's (Ringers, Lactated) Confirm Administered Dose 1,000 mls @ as directed .ROUTE .STK-MED ONE Stop: 02/02/17 12:13 Lactated Ringer's (Ringers, Lactated) Confirm Administered Dose 1,000 mls @ as directed .ROUTE .STK-MED ONE Stop: 02/02/17 12:13 Influenza Virus Vaccine (Pharmacy To Dose - Influenza Vaccine) 1 each IM ONETIME ONE Stop: 02/02/17 12:42 Last Admin: 02/02/17 19:38 Dose: Not Given Influenza Virus Vaccine (Flulaval Quad [id number]) 60 mcg IM .ONCE ONE Stop: 02/02/17 12:46 Iodine (Iodine 2% Mild Tincture) Confirm Administered Dose 30 ml .ROUTE .STK- MED ONE Stop: 02/02/17 09:06 Last Admin: 02/02/17 11:44 Dose: 18 ml Ketamine HCl (Ketalar) Confirm Administered Dose 500 mg .ROUTE .STK-MED ONE Stop: 02/02/17 12:13 Ketorolac Tromethamine (Toradol) 15 mg IVPUSH ONETIME ONE Stop: 02/03/17 06:24 Last Admin: 02/03/17 06:38 Dose: 15 mg Ketorolac Tromethamine (Toradol) 15 mg IVPUSH ONETIME ONE Stop: 02/03/17 18:01 Last Admin: 02/03/17 18:09 Dose: 15 mg Lidocaine/Sodium Bicarbonate (Buffered Lidocaine 1% In Ns 8.4%) 0.25 ml IV ONETIME PRN PRN Reason: Prior to IV Start Stop: 02/02/17 18:00 Last Admin: 02/02/17 09:29 Dose: 0.25 ml Magnesium Hydroxide (Milk Of Magnesia) 30 ml PO BID PRN PRN Reason: Constipation Midazolam HCl (Versed 1 Mg/Ml) Confirm Administered Dose 2 mg .ROUTE .STK-MED ONE Stop: 02/02/17 08:40 Midazolam HCl (Versed 1 Mg/Ml) Confirm Administered Dose 2 mg .ROUTE .STK-MED ONE Stop: 02/02/17 12:13 Midazolam HCl (Versed 1 Mg/Ml) Confirm Administered Dose 2 mg .ROUTE .STK-MED ONE Stop: 02/02/17 12:13 Miscellaneous Information (Remove Patch) 1 ea TRDERM DAILY [facility] Last Admin: 02/03/17 08:22 Dose: 1 ea Morphine Sulfate (Morphine) 2 mg IVPUSH Q2H PRN PRN Reason: Breakthrough Pain Last Admin: 02/03/17 15:37 Dose: 2 mg Morphine Sulfate (Duramorph Pf) Confirm Administered Dose 10 mg .ROUTE .STK-MED ONE Stop: 02/02/17 08:40 Morphine Sulfate (Morphine) 2 mg IVPUSH Q4H PRN PRN Reason: Pain (severe 7-10) Naloxone HCl (Narcan) 0.1 mg IVPUSH Q5M PRN PRN Reason: Oversedation Nicotine (Habitrol) 7 mg TRDERM DAILY [facility] Last Admin: 02/03/17 08:21 Dose: 7 mg Non-Formulary Medication (Biotin [Biotin]) 1 mg PO DAILY [facility] Non-Formulary Medication (Cholecalciferol (Vitamin D3) [Vitamin D3]) 50,000 unit PO MO [facility] Last Admin: 02/02/17 21:44 Dose: Not Given Ondansetron HCl (Zofran) 4 mg IVPUSH Q6H PRN PRN Reason: Nausea/Vomiting Last Admin: 02/03/17 18:02 Dose: 4 mg Ondansetron HCl (Zofran Odt) 4 mg PO Q4H PRN PRN Reason: Nausea/Vomiting Oxybutynin Chloride (Oxybutynin) 5 mg PO Q6H PRN PRN Reason: PAIN Oxycodone HCl (Oxycodone) 5 mg PO Q6H PRN PRN Reason: PAIN Last Admin: 02/03/17 15:05 Dose: 5 mg Oxycodone/Acetaminophen (Percocet 325-5 Mg) 1 - 2 tab PO Q4H PRN PRN Reason: Pain Last Admin: 02/03/17 17:01 Dose: 2 tab Phenylephrine HCl (Jose Francisco-Synephrine) Confirm Administered Dose 10 mg .ROUTE .STK- MED ONE Stop: 02/02/17 12:13 Propofol (Diprivan 20 Ml) Confirm Administered Dose 400 mg .ROUTE .STK-MED ONE Stop: 02/02/17 08:39 Propofol (Diprivan 20 Ml) Confirm Administered Dose 200 mg .ROUTE .STK-MED ONE Stop: 02/02/17 12:13 Propofol (Diprivan 20 Ml) Confirm Administered Dose 200 mg .ROUTE .STK-MED ONE Stop: 02/02/17 12:13 Propofol (Diprivan 20 Ml) Confirm Administered Dose 200 mg .ROUTE .STK-MED ONE Stop: 02/02/17 12:13 Propofol (Diprivan 20 Ml) Confirm Administered Dose 200 mg .ROUTE .STK-MED ONE Stop: 02/02/17 12:13 Propofol (Diprivan 20 Ml) Confirm Administered Dose 200 mg .ROUTE .STK-MED ONE Stop: 02/02/17 12:13 Senna (Senna) 8.6 mg PO BID PRN PRN Reason: Constipation Sodium Chloride (Saline Flush) 10 ml FLUSH ASDIRECTED PRN PRN Reason: Keep Vein Open Tranexamic Acid (Cyklokapron) Confirm Administered Dose 1,000 mg .ROUTE .STK- MED ONE Stop: 02/02/17 09:06 Last Admin: 02/02/17 11:45 Dose: 1,000 mg Vancomycin HCl (Vancomycin) Confirm Administered Dose 1 gm .ROUTE .K-MED ONE Stop: 02/02/17 09:07 Last Admin: 02/02/17 11:45 Dose: 1 gm Venlafaxine HCl (Effexor Xr) 75 mg PO DAILY [facility] Last Admin: 02/03/17 08:20 Dose: 75 mg *Q Meaningful Use (DIS) - VTE *Q VTE Criteria *Q: - Stroke *Q Stroke Criteria *Q: - AMI *Q AMI Criteria *Q:
== END 2017-02-03 19:10 | disposition home or self-care (01) | DRG 470 ==
LOC: JD.MS 02-02 09:01
PROVIDERS: ADMIT Orthopaedic Surgery; ATTEND Orthopaedic Surgery
PROC: 0SRC0J9 Replacement of Right Knee Joint with Synthetic Substitute, Cemented, Open Approach (ICD-10-PCS; principal; 2017-02-02)
DX: M17.11 Unilateral primary osteoarthritis, right knee (principal); Z91.030 Bee allergy status; G89.29 Other chronic pain; F32.9 Major depressive disorder, single episode, unspecified; I10 Essential (primary) hypertension; G47.10 Hypersomnia, unspecified; E55.9 Vitamin D deficiency, unspecified; Z79.899 Other long term (current) drug therapy; M54.5 Low back pain; Z79.82 Long term (current) use of aspirin; R91.8 Other nonspecific abnormal finding of lung field; F41.9 Anxiety disorder, unspecified; F17.210 Nicotine dependence, cigarettes, uncomplicated; Z96.652 Presence of left artificial knee joint
CPT/HCPCS: 01402; 36415; 73560-26-RT; 73560-RT; 80053; 85027; 87641; 94762; 97110-GP; 97116-GP; 97162-GP; 97166-GO; 97530-GO; 97535-GO; A9270-GY; C1776; J0171; J0690; J0697; J1885; J2250; J2270; J2370; J2405; J2704; J3010; J3370; J3490; J7120

== ENCOUNTER 2017-06-25 08:03 | Day surgery (SDC) | payer MEDICAID, OTHER ==
[~2017-06-25 08:03] MED LIST changes: +Dexamethasone 4 MG/ML 5 ML MDV ONE; +EPINEPHrine 1 MG/ML SDV ONE; +Ketorolac 30 MG/ML SDV ONE; +Lactated Ringers 0 ML ONE; +Lidocaine 1% 0 ML ONE; +Lidocaine 1%/Sod Bicarbonate in NS 8.4% 1 ML Syringe IDERM PRN; -Lidocaine 1%/Sod Bicarbonate in NS 8.4% 1 ML Syringe IV PRN; +Midazolam 1 MG/ML 2 ML SDV ONE; +Ondansetron 4 MG/2 ML SDV ONE; +Propofol 200 MG/20 ML SDV ONE; +Rocuronium 50 MG/5 ML Vial ONE; +Ropivacaine 0.5% 5 MG/ML 30 ML SDV ONE; +ceFAZolin 1 GM Vial ONE; +fentaNYL 250 MCG/5 ML SDV ONE
[2017-06-25] MEDS ORDERED: Bupivacaine 0.25% 10 ML SDV ONE (09:41)
--- NOTE | 2017-06-25 09:49 | PCM.PREANE ---
Preanesthetic Assessment - Anesthesia/Transfusion/Family Hx Anesthesia History: Prior Anesthesia Without Reaction Family History of Anesthesia Reaction: No Transfusion History: No Prior Transfusion(s) Type of Transfusion Reactions: Reports: Unknown Intubation History: Unknown - Review of Systems General: No Symptoms Pulmonary: No Symptoms Cardiovascular: No Symptoms, Dyspnea on Exertion Gastrointestinal: No Symptoms Neurological: No Symptoms Other: Reports: None - Physical Assessment NPO Status Date: 06/24/17 NPO Status Time: 22:30 Pulse: 90 O2 Sat by Pulse Oximetry: 93 Respiratory Rate: 20 Blood Pressure: 135/82 Temperature: 36.9 C Vital Signs: Last Vital Signs Temp 36.9 C 06/25/17 08:30 Pulse 90 06/25/17 08:30 Resp 20 06/25/17 08:30 BP 135/82 06/25/17 08:30 Pulse Ox 93 L 06/25/17 08:30 Height: 1.73 m Weight: 98.883 kg ASA Class: 2 Mental Status: Alert & Oriented x3 Dentition: Reports: Normal Dentition, Dunean(s) Thyro-Mental Finger Breadths: 3 Mouth Opening Finger Breadths: 3 ROM/Head Extension: Full Lungs: Clear to Auscultation, Normal Respiratory Effort Cardiovascular: Regular Rate, Regular Rhythm - Lab Values: Laboratory Last Values MRSA (PCR) Negative 06/09/17 16:27 - Imaging/EKG Impressions: EKG SR 63 bpm on chart - Allergies Allergies/Adverse Reactions: Allergies Allergy/AdvReac Type Severity Reaction Status Date / Time bee venom protein (honey bee) Allergy Anaphylactic Verified 06/24/17 15:40 Shock meloxicam Allergy Itching Verified 06/24/17 15:40 nabumetone Allergy Itching Verified 06/24/17 15:40 - Blood Blood Available: No Product(s) Available: None - Anesthesia Plan Pre-Op Medication Ordered: None - Acknowledgements Anesthesia Type Planned: General Anesthesia Pt an Appropriate Candidate for the Planned Anesthesia: Yes Alternatives and Risks of Anesthesia Discussed w Pt/Guardian: Yes Pt/Guardian Understands and Agrees with Anesthesia Plan: Yes PreAnesthesia Questionnaire HEENT History: Reports: None Cardiovascular History: Reports: Hypertension Respiratory History: Reports: Pneumonia, Recurrent, Other (See Below) Other Respiratory History: cough, mediastinal cyst, lung mass Gastrointestinal History: Reports: None Genitourinary History: Reports: None 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: , Other (See Below) Other OB/BYN History: hot flashes, menopausal, decreased libido Musculoskeletal History: Reports: Arthritis, Other (See Below) Other Musculoskeletal History: chronic pain, hammertoe L foot, multiple joint pain, low back pain Neurological History: Reports: None, Migraines Psychiatric History: Reports: Anxiety, Depression, Other (See Below) Other Psychiatric History: fatigue, insomnia Endocrine/Metabolic History: Reports: Vitamin D Deficiency Hematologic History: Reports: None Immunologic History: Reports: None Oncologic (Cancer) History: Reports: None Dermatologic History: Reports: None Other Dermatologic History: tinea corporis - Infectious Disease History Infectious Disease History: Reports: Influenza - Past Surgical History HEENT Surgical History: Reports: Other (See Below) Other HEENT Surgeries/Procedures: simple excision of lingual cyst Cardiovascular Surgical History: Reports: None Respiratory Surgical History: Reports: Thoracotomy GI Surgical History: Reports: None Female Surgical History: Reports: Hysterectomy Male Surgical History: Reports: None Endocrine Surgical History: Reports: None Neurological Surgical History: Reports: None Musculoskeletal Surgical History: Reports: Knee Replacement, Other (See Below) Other Musculoskeletal Surgeries/Procedures:: left knee ACL and meniscus repair. right foot surgery, bilateral knee replacements Oncologic Surgical History: Reports: None - SUBSTANCE USE Smoking Status *Q: Current Every Day Smoker Tobacco Use Within Last Twelve Months: Cigarettes Second Hand Smoke Exposure: Yes Days Per Week of Alcohol Use: 4 Number of Drinks Per Day: 3 Total Drinks Per Week: 12 Recreational Drug Use History: No - HOME MEDS Home Medications: Home Meds Albuterol Sulfate [Proair Hfa] 1 - 2 puff INH Q4H PRN 10/09/16 [History] Cholecalciferol (Vitamin D3) [Vitamin D3] 50,000 unit PO MO 10/09/16 [History] Venlafaxine [Effexor XR] 75 mg PO DAILY 10/13/16 [History] Biotin 1 mg PO DAILY 01/30/17 [History] Aspirin/Acetaminophen/Caffeine [Migraine Relief Caplet] 1 tab PO TID PRN [History] EPINEPHrine [Epipen] 1 dose IM ONETIME 05/27/17 [History] Triamcinolone Acetonide [Triamcinolone Acetonide 0.1% Crm] 1 dose TOP BID [History] Venlafaxine [Venlafaxine HCl ER] 150 mg PO DAILY 05/27/17 [History] traZODone HCl [Trazodone HCl] 1 - 2 tab PO BEDTIME PRN 05/27/17 [History] Acetaminophen/HYDROcodone [[place] 325-5 MG] 1 - 2 tab PO Q6H PRN #40 tablet 06/25 [Rx] Aspirin 325 mg PO BID #84 tab 06/25/17 [Rx] Cyclobenzaprine [Flexeril] 10 mg PO Q8H PRN #40 tab 06/25/17 [Rx] - CURRENT (IN HOUSE) MEDS Current Meds: Current Medications Lactated Ringer's (Ringers, Lactated) 1,000 mls @ 125 mls/hr IV ASDIRECTED [facility] Stop: 06/25/17 23:00 Last Admin: 06/25/17 08:50 Dose: 125 mls/hr Lidocaine/Sodium Bicarbonate (Buffered Lidocaine 1% In Ns 8.4%) 0.25 ml IDERM ONETIME PRN PRN Reason: Prior to IV Start Stop: 06/25/17 18:00 Last Admin: 06/25/17 08:49 Dose: 0.25 ml Sodium Chloride (Saline Flush) 10 ml FLUSH ASDIRECTED PRN PRN Reason: Keep Vein Open Stop: 06/25/17 18:00 Discontinued Medications Bupivacaine HCl (Sensorcaine-Mpf 0.25%) Confirm Administered Dose 20 ml .ROUTE .STK-MED ONE Stop: 06/25/17 09:42 Cefazolin Sodium (Ancef) Confirm Administered Dose 2 gm .ROUTE .STK-MED ONE Stop: 05/28/17 06:31 Dexamethasone (Dexamethasone) Confirm Administered Dose 20 mg .ROUTE .STK-MED ONE Stop: 05/28/17 06:31 Epinephrine HCl (Adrenalin) Confirm Administered Dose 1 mg .ROUTE .STK-MED ONE Stop: 05/28/17 06:18 Fentanyl (Sublimaze) Confirm Administered Dose 250 mcg .ROUTE .STK-MED ONE Stop: 05/28/17 06:31 Lactated Ringer's (Ringers, Lactated) 1,000 mls @ 125 mls/hr IV ASDIRECTED [facility] Stop: 05/28/17 23:00 Lidocaine HCl (Xylocaine-Mpf 1%) Confirm Administered Dose 8 mls @ as directed .ROUTE .STK-MED ONE Stop: 05/28/17 06:31 Lactated Ringer's (Ringers, Lactated) Confirm Administered Dose 1,000 mls @ as directed .ROUTE .STK-MED ONE Stop: 05/28/17 06:31 Ketorolac Tromethamine (Toradol) Confirm Administered Dose 30 mg .ROUTE .STK- MED ONE Stop: 05/28/17 06:31 Lidocaine/Sodium Bicarbonate (Buffered Lidocaine 1% In Ns 8.4%) 0.25 ml IDERM ONETIME PRN PRN Reason: Prior to IV Start Stop: 05/28/17 18:00 Midazolam HCl (Versed 1 Mg/Ml) Confirm Administered Dose 2 mg .ROUTE .STK-MED ONE Stop: 05/28/17 06:31 Ondansetron HCl (Zofran) Confirm Administered Dose 4 mg .ROUTE .STK-MED ONE Stop: 05/28/17 06:31 Propofol (Diprivan 20 Ml) Confirm Administered Dose 200 mg .ROUTE .STK-MED ONE Stop: 05/28/17 06:31 Rocuronium Hayden (Zemuron) Confirm Administered Dose 50 mg .ROUTE .STK-MED ONE Stop: 05/28/17 06:31 Ropivacaine (Naropin 0.5%) Confirm Administered Dose 30 ml .ROUTE .STK-MED ONE Stop: 05/28/17 06:18 Sodium Chloride (Saline Flush) 10 ml FLUSH ASDIRECTED PRN PRN Reason: Keep Vein Open Stop: 05/28/17 18:00
[2017-06-25] MEDS ORDERED: Propofol 200 MG/20 ML SDV ONE ×2 (10:17→10:35)
[2017-06-25] MEDS ORDERED: ceFAZolin 1 GM Vial ONE ×2 (10:18)
[2017-06-25] MEDS ORDERED: fentaNYL 100 MCG/2 ML SDV ONE ×4 (10:18→11:54)
[2017-06-25] MEDS ORDERED: Midazolam 1 MG/ML 2 ML SDV ONE ×2 (10:18→10:28)
[2017-06-25] MEDS ORDERED: fentaNYL 100 MCG/2 ML SDV IVPUSH PRN (11:13)
[2017-06-25] MEDS ORDERED: diphenhydrAMINE 50 MG/ML SDV IVPUSH PRN (11:13)
[2017-06-25] MEDS ORDERED: Meperidine PF 50 MG/ML Syringe IVPUSH PRN (11:13)
[2017-06-25] MEDS ORDERED: Ondansetron 4 MG/2 ML SDV IVPUSH PRN (11:13)
[2017-06-25] MEDS ORDERED: HYDROmorphone 1 MG/ML Syringe ONE ×2 (11:16→12:24)
[2017-06-25] MEDS ORDERED: HYDROmorphone 0.5 MG/0.5 ML Syringe IVPUSH ONE (11:17)
[2017-06-25] MEDS ORDERED: Lactated Ringers 1,000 ML ONE (11:28)
[2017-06-25] MEDS ORDERED: Ketorolac 30 MG/ML SDV ONE (12:08)
[2017-06-25] MEDS ORDERED: fentaNYL 250 MCG/5 ML SDV ONE (12:24)
--- NOTE | 2017-06-25 12:40 | PCM.POSTAN ---
POST ANESTHESIA ASSESSMENT - MENTAL STATUS Mental Status: Alert, Oriented - VITAL SIGNS Pulse Rate: 96 SaO2: 97 Resp Rate: 11 Blood Pressure: 141/95 Temperature: 36.9 C - RESPIRATORY Respiratory Status: Respiratory Rate WNL, Airway Patent, O2 Saturation Stable, Supplemental Oxygen - CARDIOVASCULAR CV Status: Pulse Rate WNL, Blood Pressure Stable - GASTROINTESTINAL GI Status: No Symptoms - PAIN Pain Score: 4 - POST OP HYDRATION Hydration Status: Adequate & Stable - OBSERVATIONS Free Text/Narrative:: no anesthesia complications noted
--- NOTE | 2017-06-25 13:03 | CR ---
Left first and second toes: Seven fluoroscopic spot views were obtained utilizing C-arm device in the operating room. Study shows osteotomy within the mid first metatarsal shaft with placement of 2 screws as well as metatarsal shaving. Second toe shows a longitudinal fixation pin through the MTP joint. Fluoroscopy time given as 19.5 seconds. Impression: 1. Operative study as noted above. Diagnostic code #2
[2017-06-25 14:38] VITALS: BP 133/80
--- NOTE | 2017-07-08 07:26 | PCM.OPNOTE ---
- General Post-Op/Procedure Note Date of Surgery/Procedure: 06/25/17 Operative Procedure(s): left first metatarsal proximal shelf osteotomy with hallux valgus correction and second claw toe correction with extensor lengthening and dorsal capsulotomy and flexor tenotomy Pre Op Diagnosis: hallux valgus with second claw toe deformity Post-Op Diagnosis: Same Anesthesia Technique: General LMA, Local Primary Surgeon: Washington Rossi Anesthesia Provider: Esme Domingo Sap Fico Architect: Angela Woods in mLs: 5 Complications: None Condition: Good
--- NOTE | 2017-07-08 08:34 | OR ---
DATE OF OPERATION: 06/25/2017 SURGEON: Washington Rossi MD OPERATION PERFORMED: Left first metatarsal proximal shelf Scarf osteotomy with hallux valgus correction and second clawtoe correction with extensor lengthening, dorsal capsulotomy, and flexor tenotomy. PREOPERATIVE DIAGNOSIS: Hallux valgus and second clawtoe deformity. POSTOPERATIVE DIAGNOSIS: Hallux valgus and second clawtoe deformity. ANESTHESIA: General LMA with local. ANESTHESIA PROVIDER: Esme Domingo CRNA. FITTER MACHINIST: Angela Woods PA-C. ESTIMATED BLOOD LOSS: 5 mL. COMPLICATIONS: None. CONDITION: Stable. DESCRIPTION OF PROCEDURE: The patient was identified in the preoperative holding area. Proper site was marked and identified by the surgeon. The patient was taken back to the operating theater, where after adequate anesthesia, the patient's left lower extremity had a nonsterile tourniquet applied and was then sterilely prepped and draped in the usual sterile fashion. OR-wide time-out was performed. The patient received 2 grams of IV Ancef. The left lower extremity was then exsanguinated. Tourniquet was insufflated to 250 mmHg. Standard medial incision was made centered over the first MTP joint. This was taken full- thickness all the way down to the MTP joint capsule, which was then incised. The patient's joint was inspected and showed no signs of significant osteoarthrosis noted in the first MTP joint. At this time, a lateral capsulotomy was performed of the first MTP joint along with resection of the abductor hallucis longus tendon from the sesamoids for correction. At this time, attention was turned to the proximal Scarf osteotomy. Using a microsagittal saw blade, Scarf osteotomy was performed at this time under direct visualization with C-arm fluoroscopy. The correction was then completed and it was found to have adequate correction of the MTP joint. Before the rest was carried out, a medial eminence resection was carried out at the medial recess. At this time, again, the correction of the hallux valgus was held with a Scarf osteotomy and 2 K-wires were placed for two 3.5 mm cannulated screws. These were then placed and were found to have adequate fixation and compression. On AP, oblique and lateral views, it was found to have good reduction and compression with anatomic alignment with complete resolution of the hallux valgus deformity. At this time, attention was turned to the second toe. An incision was made on the plantar surface over the proximal phalanx. This was taken down to the flexor tendon sheath. Flexor tendon sheath was incised. Ragnell retractors protected the neurovascular bundles. At this time, the long flexor tendon was then incised. Attention was turned dorsally. An incision was made over the second MTP joint. The extensor tendon was identified and was lengthened using a Z lengthening. Once this was completed, a dorsal capsulotomy was then also performed, and the patient had good clawtoe correction. At this time, a 0.042 K-wire was placed in a retrograde fashion through the second toe into the second metatarsal for correction of the clawtoe. At this time, the extensor tendon was sutured with a 2-0 Ethibond for completion of the lengthening. At this time, also the first MTP joint capsule was then sutured to take out the redundancy in it secondary to the severe hallux valgus deformity in a [id number] fashion. This was then tightened using the Ethibond suture. There was good correction of the clawtoe deformity as well as the hallux valgus deformity. Adequate saline was irrigated through all wounds. 3-0 Vicryl was used subcutaneously and a 4-0 nylon was used for closure of the skin. The patient was placed in a sterile soft dressing and a posterior Slab splint and sent to the PACU in a stable condition. MARY /[id number]
== END 2017-06-25 15:25 | disposition home or self-care (01) ==
LOC: JD.SDS 08:03
PROVIDERS: ATTEND Orthopaedic Surgery
DX: M20.12 Hallux valgus (acquired), left foot (principal); M20.5X2 Other deformities of toe(s) (acquired), left foot; F32.9 Major depressive disorder, single episode, unspecified; I10 Essential (primary) hypertension; E55.9 Vitamin D deficiency, unspecified; Z88.8 Allergy status to other drugs, medicaments and biological substances; Z91.030 Bee allergy status; Z79.899 Other long term (current) drug therapy; F17.210 Nicotine dependence, cigarettes, uncomplicated
CPT/HCPCS: 28295; 28313; 76000; 87641; C1713; C1769; J0690; J1100; J1170; J1885; J2250; J3010; J7120; 01480; J0171; J2001; J2405; J2704; J2795

== ENCOUNTER 2017-09-16 01:25 | Emergency (ER) | payer MEDICAID, OTHER ==
[2017-09-16 01:31] VITALS: BP 160/119
[2017-09-16] MEDS: Sodium Chloride 0.9% 10 ML Syringe FLUSH PRN (01:54)
[2017-09-16] MEDS: HYDROmorphone 0.5 MG/0.5 ML SYRINGE IVPUSH ONE ×2 (01:54→02:31)
[2017-09-16] MEDS: Ondansetron 4 MG/2 ML SDV IVPUSH ONE (01:54)
[2017-09-16] MEDS: Sodium Chloride 0.9% 500 ML IV ONE (01:54)
[2017-09-16] MEDS: Ketorolac 30 MG/ML SDV IVPUSH SCH (01:59)
--- NOTE | 2017-09-16 02:33 | EDM.PDOC ---
ED HPI GENERAL MEDICAL PROBLEM - General Chief Complaint: ENT Problem Stated Complaint: ear pain Time Seen by Provider: 09/16/17 01:36 Source of Information: Reports: Patient, RN Notes Reviewed - History of Present Illness INITIAL COMMENTS - FREE TEXT/NARRATIVE: 52-year-old female comes in with severe right earache, right frontal headache. This has all started over the past day or 2 but much worse tonight, unable to sleep. Taken Tylenol and ibuprofen without any meaningful pain relief. She is also nauseated with the headache. Not actively vomiting. No recent nasal or sinus congestion. She is not been coughing. She has not been recently swimming. Drainage from the ear. Right Ear Pain Score (Numeric/FACES): 10 - Related Data Allergies Allergy/AdvReac Type Severity Reaction Status Date / Time bee venom protein (honey bee) Allergy Anaphylactic Verified 09/16/17 01:32 Shock meloxicam Allergy Itching Verified 09/16/17 01:32 nabumetone Allergy Itching Verified 09/16/17 01:32 Home Meds: Home Meds Cholecalciferol (Vitamin D3) [Vitamin D3] 50,000 unit PO MO 10/09/16 [History] Biotin 1 mg PO DAILY 01/30/17 [History] Venlafaxine [Venlafaxine HCl ER] 150 mg PO DAILY 05/27/17 [History] Acetaminophen/HYDROcodone [[place] 325-5 MG] 1 tab PO Q6HR PRN #10 tablet [Rx] Past Medical History HEENT History: Reports: None Cardiovascular History: Reports: Hypertension Respiratory History: Reports: Pneumonia, Recurrent, Other (See Below) Other Respiratory History: cough, mediastinal cyst, lung mass Gastrointestinal History: Reports: None Genitourinary History: Reports: None 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: , Other (See Below) Other OB/BYN History: hot flashes, menopausal, decreased libido Musculoskeletal History: Reports: Arthritis, Other (See Below) Other Musculoskeletal History: chronic pain, hammertoe L foot, multiple joint pain, low back pain Neurological History: Reports: Migraines Psychiatric History: Reports: Anxiety, Depression, Other (See Below) Other Psychiatric History: fatigue, insomnia Endocrine/Metabolic History: Reports: Vitamin D Deficiency Hematologic History: Reports: None Immunologic History: Reports: None Oncologic (Cancer) History: Reports: None Dermatologic History: Reports: Other (See Below) Other Dermatologic History: tinea corporis - Infectious Disease History Infectious Disease History: Reports: Influenza - Past Surgical History HEENT Surgical History: Reports: Other (See Below) Other HEENT Surgeries/Procedures: simple excision of lingual cyst Cardiovascular Surgical History: Reports: None Respiratory Surgical History: Reports: Thoracotomy Female Surgical History: Reports: Hysterectomy Endocrine Surgical History: Reports: None Neurological Surgical History: Reports: None Musculoskeletal Surgical History: Reports: Knee Replacement, Other (See Below) Other Musculoskeletal Surgeries/Procedures:: left knee ACL and meniscus repair. right foot surgery, bilateral knee replacements Social & Family History - Family History Family Medical History: Noncontributory - Tobacco Use Smoking Status *Q: Current Every Day Smoker Years of Tobacco use: 20 Packs/Tins Daily: 0.5 Used Tobacco, but Quit: No Second Hand Smoke Exposure: No - Caffeine Use Caffeine Use: Reports: Soda - Recreational Drug Use Recreational Drug Use: No ED ROS ENT - Review of Systems Review Of Systems: See Below Constitutional: Denies: Fever, Chills HEENT: Reports: Ear Pain. Denies: Ear Discharge, Sinus Problem, Throat Pain Respiratory: Denies: Shortness of Breath, Cough Cardiovascular: Denies: Chest Pain GI/Abdominal: Reports: Nausea. Denies: Abdominal Pain, Vomiting Musculoskeletal: Reports: No Symptoms Skin: Denies: Rash Neurological: Reports: Headache. Denies: Numbness, Tingling ED EXAM, ENT - Physical Exam Exam: See Below General Appearance: Alert, Moderate Distress Eye Exam: Bilateral Eye: PERRL Ears: Normal TMs, Other (there is inflamation of the R ear canal, no drainage at this time, tender all around external ear canal) Nose: Normal Inspection Mouth/Throat: Normal Inspection. No: Dental Pain Head: Atraumatic Neck: Supple, Full Range of Motion Respiratory/Chest: No Respiratory Distress, Lungs Clear Cardiovascular: Regular Rate, Rhythm Extremities: Normal Inspection, Normal Range of Motion Neurological: Alert, Oriented, No Motor/Sensory Deficits Skin: Warm, Dry, Normal Color, No Rash Course - Vital Signs Last Recorded V/S: Last Vital Signs Temp 97.9 F 09/16/17 01:29 Pulse 89 09/16/17 01:29 Resp 20 09/16/17 01:29 BP 160/119 H 09/16/17 01:29 Pulse Ox 100 09/16/17 01:29 - Orders/Labs/Meds Orders: Active Orders 24 hr Category Date Time Status Peripheral IV Care [RC] . DIRECTED Care 09/16/17 01:45 Active Ketorolac [Toradol] Med 09/16/17 01:45 Active 30 mg IVPUSH ONETIME Sodium Chloride 0.9% [Saline Flush] Med 09/16/17 01:43 Active 10 ml FLUSH ASDIRECTED PRN Peripheral IV Insertion Adult [OM.PC] Stat Oth 09/16/17 01:43 Ordered Medication Orders Ketorolac Tromethamine (Toradol) 30 mg IVPUSH ONETIME GWEN Last Admin: 09/16/17 01:59 Dose: 30 mg Sodium Chloride (Saline Flush) 10 ml FLUSH ASDIRECTED PRN PRN Reason: Keep Vein Open Last Admin: 09/16/17 01:54 Dose: 10 ml Meds: Medications Generic Name Dose Route Start Last Admin Trade Name Freq PRN Reason Stop Dose Admin Ketorolac Tromethamine 30 mg 09/16/17 01:45 09/16/17 01:59 Toradol IVPUSH 30 mg ONETIME GWEN Administration Sodium Chloride 10 ml 09/16/17 01:43 09/16/17 01:54 Saline Flush FLUSH 10 ml ASDIRECTED PRN Administration Keep Vein Open Discontinued Medications Generic Name Dose Route Start Last Admin Trade Name Freq PRN Reason Stop Dose Admin Hydromorphone HCl 0.5 mg 09/16/17 01:43 09/16/17 01:54 Dilaudid IVPUSH 09/16/17 01:44 0.5 mg ONETIME ONE Administration Hydromorphone HCl 0.5 mg 09/16/17 02:26 09/16/17 02:31 Dilaudid IVPUSH 09/16/17 02:27 0.5 mg ONETIME ONE Administration Sodium Chloride 500 mls @ 999 mls/hr 09/16/17 01:43 09/16/17 01:54 Normal Saline IV 09/16/17 02:13 999 mls/hr .BOLUS ONE Administration Ondansetron HCl 4 mg 09/16/17 01:43 09/16/17 01:54 Zofran IVPUSH 09/16/17 01:44 4 mg ONETIME ONE Administration Departure - Departure Time of Disposition: 02:27 Disposition: Home, Self-Care 01 Condition: Fair Clinical Impression: Otitis externa Qualifiers: Otitis externa type: unspecified type Chronicity: acute Laterality: right Qualified Code(s): H60.501 - Unspecified acute noninfective otitis externa, right ear Headache Qualifiers: Headache type: unspecified Headache chronicity pattern: acute headache Intractability: not intractable Qualified Code(s): R51 - Headache - Discharge Information Prescriptions: Acetaminophen/HYDROcodone [[place] 325-5 MG] 1 tab PO Q6HR PRN #10 tablet PRN Reason: Pain Instructions: Otitis Externa, [id number] Referrals: Brittany Marcos MD [Primary Care Provider] - Forms: ED Department Discharge Additional Instructions: Cipro opthalmic 0.3 % drops, 2 drops when you get home, 3 times today and than twice daily for the next week, tylenol or ibuprofen for mild to moderate pain or hydrocodone if needed for severe pain. Do not take Tylenol and hydrocodone at the same time, do not drive or work when taking hydrocodone. Clinic if not much better within 2-3 days as expected. Return to ED as needed. - My Orders Last 24 Hours: My Active Orders 09/16/17 01:43 Sodium Chloride 0.9% [Saline Flush] 10 ml FLUSH ASDIRECTED PRN Peripheral IV Insertion Adult [OM.PC] Stat 09/16/17 01:45 Peripheral IV Care [RC] . DIRECTED Ketorolac [Toradol] 30 mg IVPUSH ONETIME - Assessment/Plan Last 24 Hours: My Active Orders 09/16/17 01:43 Sodium Chloride 0.9% [Saline Flush] 10 ml FLUSH ASDIRECTED PRN Peripheral IV Insertion Adult [OM.PC] Stat 09/16/17 01:45 Peripheral IV Care [RC] . DIRECTED Ketorolac [Toradol] 30 mg IVPUSH ONETIME
== END 2017-09-16 02:49 | disposition home or self-care (01) ==
LOC: JD.ED 01:25
DX: H60.501 Unspecified acute noninfective otitis externa, right ear (principal); R51 Headache; I10 Essential (primary) hypertension; F41.9 Anxiety disorder, unspecified; F32.9 Major depressive disorder, single episode, unspecified; F17.210 Nicotine dependence, cigarettes, uncomplicated; Z91.030 Bee allergy status; Z88.8 Allergy status to other drugs, medicaments and biological substances; Z79.899 Other long term (current) drug therapy
CPT/HCPCS: 96361; 96374; 96375; 96376; 99283; J1170; J1885; J2405; J7040; J7050

== ENCOUNTER 2018-06-18 22:33 | Emergency (ER) | payer BC ==
[2018-06-18 22:59] VITALS: BP 128/86
[2018-06-18] MEDS ORDERED: LORazepam 1 MG Tab PO ONE (23:13)
[2018-06-18] MEDS ORDERED: Ondansetron 4 MG Tab.DIS PO ONE (23:13)
--- NOTE | 2018-06-18 23:20 | EDM.PDOC ---
ED HPI GENERAL MEDICAL PROBLEM - General Chief Complaint: General Stated Complaint: abdominal pain Time Seen by Provider: 06/18/18 22:48 Source of Information: Reports: Patient, RN Notes Reviewed History Limitations: Reports: No Limitations - History of Present Illness INITIAL COMMENTS - FREE TEXT/NARRATIVE: The patient states that she had an emotionally-charged argument with her daughter over the phone around 18:30 this evening. She states that she was crying, then found herself with tingling fingers and hands, decreased hearing, and was flopping on the couch. She was fully conscious. She subsequently developed nausea and vomiting around 22:20 this evening, which brought her to the ED. No diarrhea. In contrast to her presenting complaint, the patient denies having associated abdominal pain. Here in the ED, the patient states that she is still feeling nauseated. It is noted that her oxygen saturation is 100% on room air. No recent fever. No recent bad or spoiled food. No similarly ill contacts. No recent antibiotics. No recent travel. No prior similar symptoms. The patient's PCP is Dr. Brittany Marcos. - Related Data Allergies Allergy/AdvReac Type Severity Reaction Status Date / Time bee venom protein (honey bee) Allergy Anaphylactic Verified 09/16/17 01:32 Shock meloxicam Allergy Itching Verified 09/16/17 01:32 nabumetone Allergy Itching Verified 09/16/17 01:32 Home Meds: Home Meds Cholecalciferol (Vitamin D3) [Vitamin D3] 50,000 unit PO MO 10/09/16 [History] Biotin 1 mg PO DAILY 01/30/17 [History] Venlafaxine [Venlafaxine HCl ER] 150 mg PO DAILY 05/27/17 [History] Past Medical History Cardiovascular History: Reports: Hypertension Genitourinary History: Reports: Urinary Incontinence (stress incontinence) PSYCHOLOGIST PERSONNEL History: Reports: Musculoskeletal History: Reports: Back Pain, Chronic, Osteoarthritis Psychiatric History: Reports: Anxiety, Depression Endocrine/Metabolic History: Reports: Obesity/BMI 30+, Vitamin D Deficiency - Infectious Disease History Infectious Disease History: Reports: Influenza - Past Surgical History HEENT Surgical History: Reports: Tonsillectomy, Other (See Below) (Excision of lingual cyst) Respiratory Surgical History: Reports: Thoracotomy (right, for lung biopsy - benign) Female Surgical History: Reports: Hysterectomy, Salpingo-Oophorectomy ( bilateral), Other (See Below) (Bladder suspension) Musculoskeletal Surgical History: Reports: Arthroscopic Knee (bilateral), Knee Replacement (bilateral), Other (See Below) (Right foot tendon repair. Right bunionectomy. Right hammertoe.) Social & Family History - Family History Family Medical History: Noncontributory - Tobacco Use Smoking Status *Q: Current Every Day Smoker Years of Tobacco use: 35 Packs/Tins Daily: 0.5 Packs/Tins Daily Comment: Down from 1 ppd - Caffeine Use Caffeine Use: Reports: Soda, Tea - Alcohol Use Alcohol Use History: Yes Alcohol Use Frequency: Socially (occasionally to excess) - Recreational Drug Use Recreational Drug Use: No - Living Situation & Occupation Living situation: Reports: Single, with Significant Other (Boyfriend) Occupation: Employed ([employer]) ED ROS GENERAL - Review of Systems Review Of Systems: ROS reveals no pertinent complaints other than HPI. ED EXAM, GENERAL - Physical Exam Exam: See Below Exam Limited By: No Limitations General Appearance: Alert, WD/WN, No Apparent Distress Eye Exam: Bilateral Eye: EOMI, Normal Inspection Ears: Normal External Exam, Hearing Grossly Normal Nose: Normal Inspection Throat/Mouth: Normal Inspection, Normal Lips, Normal Voice, No Airway Compromise Head: Atraumatic, Normocephalic Neck: Normal Inspection, Full Range of Motion Respiratory/Chest: No Respiratory Distress, Lungs Clear, Normal Breath Sounds, No Accessory Muscle Use Cardiovascular: Normal Peripheral Pulses, Regular Rate, Rhythm, No Gallop, No JVD, No Murmur, No Rub Peripheral Pulses: 4+: Radial (L), Radial (R) GI/Abdominal: Normal Bowel Sounds, Soft, Non-Tender, No Organomegaly, No Distention, No Abnormal Bruit, No Mass, Other (Obese) (Female) Exam: Deferred Back Exam: Normal Inspection, Full Range of Motion, NT Extremities: Normal Inspection, Normal Range of Motion, No Pedal Edema, Normal Capillary Refill Neurological: Alert, Oriented, Normal Cognition, No Motor/Sensory Deficits Psychiatric: Anxious Skin Exam: Warm, Dry, Intact, Normal Color, No Rash Course - Vital Signs Last Recorded V/S: Last Vital Signs Temp 36.3 C 06/18/18 22:47 Pulse 79 06/18/18 22:47 Resp 20 06/18/18 22:47 BP 128/86 03/01/19 22:47 Pulse Ox 100 06/18/18 22:47 - Orders/Labs/Meds Orders: Active Orders 24 hr Category Date Time Status LORazepam [Ativan] Med 06/18/18 23:13 Once 1 mg PO ONETIME ONE Ondansetron [Zofran ODT] Med 06/18/18 23:13 Once 4 mg PO ONETIME ONE - Re-Assessments/Exams Free Text/Narrative Re-Assessment/Exam: 06/18/18 23:14 By the patient's history, she suffered a hyperventilation episode after having an argument with her daughter earlier artur. She subsequently developed nausea and vomiting, without any other gastrointestinal symptoms. I don't believe that a workup is necessary, and the patient agreed. For artur's purposes, we will simply treat with Zofran ODT and a single mg of Ativan. The patient's son will then drive her home. Departure - Departure Time of Disposition: 23:14 Disposition: Home, Self-Care 01 Condition: Good Clinical Impression: Hyperventilation syndrome, Nausea & vomiting - Discharge Information *PRESCRIPTION DRUG MONITORING PROGRAM REVIEWED*: Not Applicable *COPY OF PRESCRIPTION DRUG MONITORING REPORT IN PATIENT LIAM: Not Applicable Referrals: Brittany Marcos MD [Primary Care Provider] - Additional Instructions: You were seen in the emergency room after developing tingling hands and fingers , decreased hearing, and floppiness on the couch, after becoming emotionally upset earlier artur. He subsequently developed nausea and vomiting, without any other gastrointestinal symptoms. Based on your history and physical examination, you most likely suffered an episode of hyperventilation syndrome, which is usually caused by anxiety. A workup to look further into your symptoms was offered, but declined. You were given a single dose of the sedative Ativan and a single dose of the anti-nausea medicine Zofran in the ER. Stay adequately hydrated and get plenty of rest tonight. Continue to take your usual medications, as prescribed. If your symptoms persist or recur, either follow-up with your PCP, Dr. Brittany Marcos, or return to the ER for reevaluation. - My Orders Last 24 Hours: My Active Orders 06/18/18 23:13 LORazepam [Ativan] 1 mg PO ONETIME ONE Ondansetron [Zofran ODT] 4 mg PO ONETIME ONE - Assessment/Plan Last 24 Hours: My Active Orders 06/18/18 23:13 LORazepam [Ativan] 1 mg PO ONETIME ONE Ondansetron [Zofran ODT] 4 mg PO ONETIME ONE
== END 2018-06-18 23:47 | disposition home or self-care (01) ==
LOC: JD.ED 22:33
DX: F45.8 Other somatoform disorders (principal); R11.2 Nausea with vomiting, unspecified; F17.210 Nicotine dependence, cigarettes, uncomplicated; I10 Essential (primary) hypertension; F41.9 Anxiety disorder, unspecified; F32.9 Major depressive disorder, single episode, unspecified; Z79.899 Other long term (current) drug therapy; Z91.030 Bee allergy status; Z88.1 Allergy status to other antibiotic agents
CPT/HCPCS: 99283; A9270

== ENCOUNTER 2018-09-22 22:25 | Emergency (ER) | payer BC ==
[2018-09-22 22:43] VITALS: BP 113/83
== END 2018-09-22 23:05 ==
LOC: JD.ED 22:25
DX: Z53.21 Procedure and treatment not carried out due to patient leaving prior to being seen by health care provider (principal)

== ENCOUNTER 2019-09-11 01:27 | Emergency (ER) | payer BC ==
[2019-09-11 01:50] VITALS: BP 127/88; PULSE 77
[2019-09-11] MEDS ORDERED: Lidocaine 1% with EPINEPHrine 1:100,000 20 ML MDV INJECT ONE (02:14)
[2019-09-11] MEDS ORDERED: Bupivacaine 0.5% 10 ML SDV INJECT ONE (02:14)
--- NOTE | 2019-09-11 02:22 | EDM.PDOC ---
ED HPI GENERAL MEDICAL PROBLEM - General Chief Complaint: General Stated Complaint: RECTAL PAIN Time Seen by Provider: 09/11/19 01:47 Source of Information: Reports: Patient History Limitations: Reports: No Limitations - History of Present Illness INITIAL COMMENTS - FREE TEXT/NARRATIVE: Ms. Horne is a pleasant 54-year-old woman with a past medical history significant for external hemorrhoids, status post lancing a number of years ago , who now presents with rectal pain due to hemorrhoids since Thursday night, 2019. She states that she has tried [id number] Tylenol, ibuprofen, Tucks wipes, Preparation H, and sitz baths, without adequate relief. No rectal bleeding. She denies recent constipation. Here in the ED, the patient is found to be hemodynamically stable, afebrile, saturating 97% on room air. The patient denies recent fever, chills, sore throat, ear pain, nasal or sinus congestion, cough, dyspnea, chest pain, palpitations, nausea, vomiting, diarrhea , abdominal pain, urinary symptoms, recent weight gain or weight loss, recent bloody bowel movements or black bowel movements, recent joint aches, headaches, or rashes. The patient's PCP is Dr. Brittany Marcos. Her Orthopedic Surgeon is Dr. Ford Crow. Treatments LIVESTOCK BROKER: Reports: Acetaminophen, NSAIDS, Other (see below) Other Treatments LIVESTOCK BROKER: Tucks, preperation H cream Rectal Pain Score (Numeric/FACES): 8 - Related Data Allergies Allergy/AdvReac Type Severity Reaction Status Date / Time bee venom protein (honey bee) Allergy Anaphylactic Verified 09/11/19 01:51 Shock meloxicam Allergy Itching Verified 09/11/19 01:51 nabumetone Allergy Itching Verified 09/11/19 01:51 Home Meds: Home Meds Cholecalciferol (Vitamin D3) [Vitamin D3] 50,000 unit PO MO 10/09/16 [History] Biotin 1 mg PO DAILY 01/30/17 [History] Venlafaxine [Venlafaxine HCl ER] 150 mg PO DAILY 05/27/17 [History] Albuterol Sulfate [Proair Hfa] 1 - 2 puff INH Q6H PRN 11/10/18 [History] EPINEPHrine [Epipen] 1 dose IM ONETIME PRN 11/10/18 [History] Folic Acid 0.4 mg PO DAILY 11/10/18 [History] Venlafaxine HCl [Venlafaxine ER] 75 mg PO DAILY 11/10/18 [History] hydroCHLOROthiazide [Hydrochlorothiazide] 12.5 mg PO DAILY 11/10/18 [History] Acetaminophen/HYDROcodone [[place] 325-5 MG] 1 - 2 tab PO Q6H PRN #40 tablet 11/11 [Rx] Aspirin 325 mg PO BID #84 tab 11/11/18 [Rx] Past Medical History Cardiovascular History: Reports: Hypertension Gastrointestinal History: Reports: Hemorrhoids Genitourinary History: Reports: Urinary Incontinence (stress incontinence) Musculoskeletal History: Reports: Osteoarthritis Psychiatric History: Reports: Anxiety, Depression Endocrine/Metabolic History: Reports: Obesity/BMI 30+, Vitamin D Deficiency - Infectious Disease History Infectious Disease History: Reports: Influenza - Past Surgical History HEENT Surgical History: Reports: Tonsillectomy, Other (See Below) (Excision of lingual cyst) Respiratory Surgical History: Reports: Thoracotomy (right, for lung biopsy - benign) Female Surgical History: Reports: Hysterectomy (complete), Other (See Below) (Bladder suspension) Musculoskeletal Surgical History: Reports: Arthroscopic Knee (bilateral), Knee Replacement (bilateral), Other (See Below) (Right foot tendon repair. Right bunionectomy. Right hammertoe.) Social & Family History - Family History Family Medical History: Noncontributory - Tobacco Use Smoking Status *Q: Current Every Day Smoker Years of Tobacco use: 36 Packs/Tins Daily: 0.5 Packs/Tins Daily Comment: Down from 1 ppd - Caffeine Use Caffeine Use: Reports: Soda - Alcohol Use Alcohol Use History: Yes Alcohol Use Frequency: Socially (occasionally to excess) - Recreational Drug Use Recreational Drug Use: No - Living Situation & Occupation Living situation: Reports: Single, with Family Occupation: Employed ([employer]) ED ROS GENERAL - Review of Systems Review Of Systems: Comprehensive ROS is negative, except as noted in HPI. Musculoskeletal: Reports: Back Pain (chronic) ED EXAM, GENERAL - Physical Exam Exam: See Below Exam Limited By: No Limitations General Appearance: Alert, WD/WN, No Apparent Distress Rectal (Female) Exam: Hemorrhoids (thrombosed right anterior - tender) Course - Vital Signs Last Recorded V/S: Last Vital Signs Temp 36.3 C 09/11/19 01:44 Pulse 77 09/11/19 01:44 Resp 20 09/11/19 01:44 BP 127/88 09/11/19 01:44 Pulse Ox 97 09/11/19 01:44 - Orders/Labs/Meds Meds: Medications Discontinued Medications Generic Name Dose Route Start Last Admin Trade Name Prema PRN Reason Stop Dose Admin Bupivacaine HCl 10 ml 09/11/19 02:14 Sensorcaine-Mpf 0.5% INJECT 09/11/19 02:15 ONETIME ONE Lidocaine/Epinephrine 20 ml 09/11/19 02:14 Xylocaine 1% With Epinephrine 1:100,000 INJECT 09/11/19 02:15 ONETIME ONE - Re-Assessments/Exams Free Text/Narrative Re-Assessment/Exam: 09/11/19 02:14 On examination, the patient has a thrombosed right anterior external hemorrhoid. I recommended local anesthesia and lancing. The patient agreed. 09/11/19 02:41 The patient's anus was prepped with Betadine, then I locally injected a 50:50 admixture of bupivacaine 0.5% without epinephrine and lidocaine 1% with epinephrine. The hemorrhoid was then lanced using a #11 scalpel, and the hemorrhoid squeezed. No blood clot was expressed, however, the hemorrhoid immediately deflated. The patient tolerated the procedure well. I will discharge the patient home with the recommendation that she sitz baths a couple of times a day for 3 to 5 days. She can take [id number] ibuprofen as needed for discomfort. I would like her to follow-up with Dr. Marcos this coming week. Departure - Departure Time of Disposition: 02:46 Disposition: Home, Self-Care 01 Condition: Good Clinical Impression: Thrombosed external hemorrhoid - Discharge Information *PRESCRIPTION DRUG MONITORING PROGRAM REVIEWED*: Not Applicable *COPY OF PRESCRIPTION DRUG MONITORING REPORT IN PATIENT LIAM: Not Applicable Referrals: Brittany Marcos MD [Primary Care Provider] - Ford Crow MD [Ordering Only Provider] - Forms: ED Department Discharge Additional Instructions: You were seen in the emergency room for rectal pain since Thursday night. On examination, a thrombosed right anterior external hemorrhoid was found. Following injection with a local anesthetic, the hemorrhoid was lanced. It is very important that you not become constipated. Take a stool softener if necessary. We recommend that you sitz baths a couple of times a day for the next 3 to 5 days. You may take [id number] ibuprofen, 3 tablets (600 mg) up to every 8 hours , as needed for discomfort. We recommend that you follow-up with your PCP, Dr. Brittany Marcos, this coming week. If any other problems, please do not hesitate to return to the ER. Sepsis Event Note - Evaluation Sepsis Screening Result: No Definite Risk - Focused Exam Vital Signs: Vital Signs Temp Pulse Resp BP Pulse Ox 09/11/19 01:44 36.3 C 77 20 127/88 97 Date Exam was Performed: 09/11/19 Time Exam was Performed: 02:49
== END 2019-09-11 02:54 | disposition home or self-care (01) ==
LOC: JD.ED 01:27
DX: K64.5 Perianal venous thrombosis (principal); I10 Essential (primary) hypertension; F41.9 Anxiety disorder, unspecified; F32.9 Major depressive disorder, single episode, unspecified; E66.9 Obesity, unspecified; F17.210 Nicotine dependence, cigarettes, uncomplicated; Z68.28 Body mass index [BMI] 28.0-28.9, adult; Z91.030 Bee allergy status; Z88.6 Allergy status to analgesic agent; Z88.8 Allergy status to other drugs, medicaments and biological substances
CPT/HCPCS: 99283; J3490; 99282

== ENCOUNTER 2019-09-12 07:54 | Emergency (ER) | payer BC ==
[2019-09-12 08:06] VITALS: BP 132/88; PULSE 74
--- NOTE | 2019-09-12 09:00 | EDM.PDOC ---
ED HPI GENERAL MEDICAL PROBLEM - General Chief Complaint: General Stated Complaint: HEMORRHOID PAIN Time Seen by Provider: 09/12/19 08:18 Source of Information: Reports: Patient, RN Notes Reviewed - History of Present Illness INITIAL COMMENTS - FREE TEXT/NARRATIVE: 54 year old female had onst of hemorrhoid discomfort many days ago, had this lanced and drained here in the ED just over a day ago. Still having quite severe pain. Has not been bleeding. No fever or chills. Rectal Pain Score (Numeric/FACES): 8 - Related Data Allergies Allergy/AdvReac Type Severity Reaction Status Date / Time bee venom protein (honey bee) Allergy Anaphylactic Verified 09/11/19 01:51 Shock meloxicam Allergy Itching Verified 09/11/19 01:51 nabumetone Allergy Itching Verified 09/11/19 01:51 Home Meds: Home Meds Cholecalciferol (Vitamin D3) [Vitamin D3] 50,000 unit PO MO 10/09/16 [History] Biotin 1 mg PO DAILY 01/30/17 [History] Venlafaxine [Venlafaxine HCl ER] 150 mg PO DAILY 05/27/17 [History] Albuterol Sulfate [Proair Hfa] 1 - 2 puff INH Q6H PRN 11/10/18 [History] EPINEPHrine [Epipen] 1 dose IM ONETIME PRN 11/10/18 [History] Folic Acid 0.4 mg PO DAILY 11/10/18 [History] Venlafaxine HCl [Venlafaxine ER] 75 mg PO DAILY 11/10/18 [History] hydroCHLOROthiazide [Hydrochlorothiazide] 12.5 mg PO DAILY 11/10/18 [History] Acetaminophen/HYDROcodone [[place] 325-5 MG] 1 - 2 tab PO Q6H PRN #40 tablet 11/11 [Rx] Aspirin 325 mg PO BID #84 tab 11/11/18 [Rx] Past Medical History HEENT History: Reports: None Cardiovascular History: Reports: Hypertension Respiratory History: Reports: Pneumonia, Recurrent, Other (See Below) Other Respiratory History: cough, mediastinal cyst, lung mass Gastrointestinal History: Reports: Hemorrhoids Other Gastrointestinal History: heartburn Genitourinary History: Reports: Urinary Incontinence Other Genitourinary History: hematuria, proteinuria MERCHANDISING REPRESENTATIVE History: Reports: Other MERCHANDISING REPRESENTATIVE History: hot flashes, menopausal, decreased libido Musculoskeletal History: Reports: Osteoarthritis Other Musculoskeletal History: chronic pain, hammertoe L foot, multiple joint pain, low back pain Neurological History: Reports: Migraines Other Neuro History: trigeminal neuralgia Psychiatric History: Reports: Anxiety, Depression Other Psychiatric History: fatigue, insomnia Endocrine/Metabolic History: Reports: Obesity/BMI 30+, Vitamin D Deficiency Hematologic History: Reports: None Immunologic History: Reports: None Oncologic (Cancer) History: Reports: None Dermatologic History: Reports: Other (See Below) Other Dermatologic History: tinea corporis - Infectious Disease History Infectious Disease History: Reports: Influenza - Past Surgical History HEENT Surgical History: Reports: Tonsillectomy, Other (See Below) Respiratory Surgical History: Reports: Thoracotomy Female Surgical History: Reports: Hysterectomy, Other (See Below) Musculoskeletal Surgical History: Reports: Arthroscopic Knee, Knee Replacement, Other (See Below) Oncologic Surgical History: Reports: None Social & Family History - Family History Family Medical History: Noncontributory - Tobacco Use Smoking Status *Q: Current Every Day Smoker Years of Tobacco use: 30 Packs/Tins Daily: 0.5 - Caffeine Use Caffeine Use: Reports: Soda - Living Situation & Occupation Living situation: Reports: Single, with Family Occupation: Employed ([employer]) ED ROS GENERAL - Review of Systems Review Of Systems: See Below Constitutional: Denies: Fever, Chills Respiratory: Reports: No Symptoms Cardiovascular: Reports: No Symptoms GI/Abdominal: Reports: Other (no hemorhhoid pain). Denies: Abdominal Pain Musculoskeletal: Reports: No Symptoms Skin: Reports: No Symptoms Neurological: Reports: No Symptoms ED EXAM, GENERAL - Physical Exam Exam: See Below General Appearance: Alert, Mild Distress Head: Atraumatic Neck: Supple Respiratory/Chest: No Respiratory Distress Rectal (Female) Exam: Other (small external hemorrhoid, area of prior surgical drainage visible, still moderately swollen, tender, no active drainage, no surrounding swelling, erythema, no evidence for perirectal abcess) Neurological: Alert Skin Exam: Warm, Normal Color Course - Vital Signs Last Recorded V/S: Last Vital Signs Temp 96.9 F 09/12/19 08:03 Pulse 74 09/12/19 08:03 Resp 16 09/12/19 08:03 BP 132/88 09/12/19 08:03 Pulse Ox 100 09/12/19 08:03 Departure - Departure Time of Disposition: 08:56 Disposition: Home, Self-Care 01 Condition: Fair Clinical Impression: Hemorrhoid - Discharge Information Instructions: Hemorrhoids, [id number] Referrals: Brittany Marcos MD [Primary Care Provider] - Forms: ED Department Discharge Additional Instructions: Continue with the sitz baths q 3 to 4 hr while awake, than apply preparation h suppository medication generously over the external hemorrhoid, Us a preparation h suppository internally twice daily as well. Continue advil or ibuprofen 3 times daily with food. You may take tylenol in between doses for mild to moderate pain or hydrocodone if needed for severe pain. Do not take tylenol and hydrodocodone at the same time. Do no work or drive when taking hydrocodone. The hydrocodone will tend to make you constipated so take a stool softner once or twice daily, drink plenty of water, miralax if needed. Follow up clinic if not much better within 3 to 4 days as expected. Sepsis Event Note - Evaluation Sepsis Screening Result: No Definite Risk - Focused Exam Vital Signs: Vital Signs Temp Pulse Resp BP Pulse Ox 09/12/19 08:03 96.9 F 74 16 132/88 100 Date Exam was Performed: 09/12/19 Time Exam was Performed: 11:25
== END 2019-09-12 09:16 | disposition home or self-care (01) ==
LOC: JD.ED 07:54
DX: K64.4 Residual hemorrhoidal skin tags (principal); I10 Essential (primary) hypertension; F41.9 Anxiety disorder, unspecified; F32.9 Major depressive disorder, single episode, unspecified; E66.9 Obesity, unspecified; Z68.28 Body mass index [BMI] 28.0-28.9, adult; F17.210 Nicotine dependence, cigarettes, uncomplicated; Z91.030 Bee allergy status; Z88.8 Allergy status to other drugs, medicaments and biological substances; Z79.82 Long term (current) use of aspirin; Z79.899 Other long term (current) drug therapy
CPT/HCPCS: 99282

== ENCOUNTER 2020-03-29 16:44 | Emergency (ER) | payer MEDICAID ==
[2020-03-29 17:09] VITALS: BP 116/80; PULSE 93
[2020-03-29] MEDS ORDERED: HYDROmorphone 0.5 MG/0.5 ML Syringe IM ONE ×2 (17:12→17:52)
[2020-03-29] MEDS ORDERED: Orphenadrine 100 MG Tab.ER PO ONE (17:12)
--- NOTE | 2020-03-29 17:20 | EDM.PDOC ---
ED HPI GENERAL MEDICAL PROBLEM - General Chief Complaint: Lower Extremity Injury/Pain Stated Complaint: POST SURGICAL PAIN Time Seen by Provider: 03/29/20 16:55 Source of Information: Reports: Patient, RN Notes Reviewed History Limitations: Reports: No Limitations - History of Present Illness INITIAL COMMENTS - FREE TEXT/NARRATIVE: Patient is a 54-year-old female who presents to the ED for her right foot pain. Patient had extensive foot surgery yesterday, dealing with her toes, tendons, and heel realignment performed by Dr. Ford Crow in [facility]. Patient notes that the surgery went well and was discharged home with general recommendations and pain medications. Patient does know that she has had foot surgery on this foot before for tendon issues. Patient denies any trauma or fall that she has had since her surgery. She notes that the pain has increased since 9 AM this morning, she has taken to 5 mg tablets of hydrocodone, 1 tablet of tramadol at around 230, and another one shortly before coming to the ER. This was at the direction of her provider in [place]. She states that she has not been able to get on top of pain management so she decided to come to the ER. She also thinks that her leg muscles are spasming as there are times where she gets waves of pain up her leg, and that her muscles are very tight. Patient denies any other sick-like symptoms, fever/chills, cough/shortness of breath, nausea/vomiting/diarrhea. Treatments CLINICAL PHARMACY TECHNICIAN: Reports: Other (see below) Other Treatments CLINICAL PHARMACY TECHNICIAN: hydrocodone,tramadol Right Feet Pain Score (Numeric/FACES): 9 - Related Data Allergies Allergy/AdvReac Type Severity Reaction Status Date / Time bee venom protein (honey bee) Allergy Severe Anaphylactic Verified 03/29/20 17:00 Shock meloxicam Allergy Severe Itching Verified 03/29/20 17:00 nabumetone Allergy Severe Itching Verified 03/29/20 17:00 Home Meds: Home Meds Cholecalciferol (Vitamin D3) [Vitamin D3] 50,000 unit PO MO 10/09/16 [History] Biotin 1 mg PO DAILY 01/30/17 [History] Venlafaxine [Venlafaxine HCl ER] 150 mg PO DAILY 05/27/17 [History] Albuterol Sulfate [Proair Hfa] 1 - 2 puff INH Q6H PRN 11/10/18 [History] EPINEPHrine [Epipen] 1 dose IM ONETIME PRN 11/10/18 [History] Folic Acid 0.4 mg PO DAILY 11/10/18 [History] Venlafaxine HCl [Venlafaxine ER] 75 mg PO DAILY 11/10/18 [History] hydroCHLOROthiazide [Hydrochlorothiazide] 12.5 mg PO DAILY 11/10/18 [History] Aspirin 325 mg PO BID #84 tab 11/11/18 [Rx] Orphenadrine [Norflex] 100 mg PO BID PRN #20 tab 03/29/20 [Rx] oxyCODONE HCl/Acetaminophen [Percocet 10-325 mg Tablet] 1 each PO Q6HR #20 tablet 03/29/20 [Rx] traMADol [Ultram] 50 mg PO Q6H 03/29/20 [History] Past Medical History Cardiovascular History: Reports: Hypertension Respiratory History: Reports: Pneumonia, Recurrent, Other (See Below) Other Respiratory History: cough, mediastinal cyst, lung mass Gastrointestinal History: Reports: Hemorrhoids Other Gastrointestinal History: heartburn Genitourinary History: Reports: Urinary Incontinence Other Genitourinary History: hematuria, proteinuria SHEARER HELPER History: Reports: Other SHEARER HELPER History: hot flashes, menopausal, decreased libido Musculoskeletal History: Reports: Osteoarthritis Other Musculoskeletal History: chronic pain, hammertoe L foot, multiple joint pain, low back pain Neurological History: Reports: Migraines Other Neuro History: trigeminal neuralgia Psychiatric History: Reports: Anxiety, Depression Other Psychiatric History: fatigue, insomnia Endocrine/Metabolic History: Reports: Vitamin D Deficiency Dermatologic History: Reports: Other (See Below) Other Dermatologic History: tinea corporis - Infectious Disease History Infectious Disease History: Reports: Influenza - Past Surgical History HEENT Surgical History: Reports: Tonsillectomy, Other (See Below) Other HEENT Surgeries/Procedures: simple excision of lingual cyst Respiratory Surgical History: Reports: Thoracotomy Female Surgical History: Reports: Hysterectomy Musculoskeletal Surgical History: Reports: Arthroscopic Knee, Knee Replacement, Other (See Below) Other Musculoskeletal Surgeries/Procedures:: left knee ACL and meniscus repair. right foot surgery, bilateral knee replacements; 03-28-2020 had right foot surgery for heel,toe,tendon, great toe Social & Family History - Family History Family Medical History: No Pertinent Family History - Tobacco Use Tobacco Use Status *Q: Current Every Day Tobacco User Years of Tobacco use: 30 Packs/Tins Daily: 0.5 - Caffeine Use Caffeine Use: Reports: Soda - Recreational Drug Use Recreational Drug Use: No - Living Situation & Occupation Living situation: Reports: Single, with Family Occupation: Employed ([employer]) Review of Systems - Review of Systems Review Of Systems: Comprehensive ROS is negative, except as noted in HPI. ED EXAM, GENERAL - Physical Exam Exam: See Below Exam Limited By: No Limitations General Appearance: Alert, WD/WN, No Apparent Distress (pt appears to be in pain and uncomfortable on ER cot.) Respiratory/Chest: No Respiratory Distress, Lungs Clear, Normal Breath Sounds, No Accessory Muscle Use, Chest Non-Tender Cardiovascular: Normal Peripheral Pulses, Regular Rate, Rhythm, No Murmur Extremities: Leg Pain, Other (Right lower leg with splint in place). No: Increased Warmth, Redness Neurological: Alert, Oriented, Normal Cognition, No Motor/Sensory Deficits Psychiatric: Normal Affect, Normal Mood Skin Exam: Warm, Dry, Intact, Normal Color, No Rash, Other (visible skin is unremarkable at this time; the patient has good sensation to toes that are exposed on the patient's post surgical foot.) Course - Vital Signs Last Recorded V/S: Last Vital Signs Temp 97.3 F 03/29/20 17:06 Pulse 93 03/29/20 17:06 Resp 20 03/29/20 17:06 BP 116/80 03/29/20 17:06 Pulse Ox 97 03/29/20 17:06 - Orders/Labs/Meds Meds: Medications Discontinued Medications Generic Name Dose Route Start Last Admin Trade Name Prema PRN Reason Stop Dose Admin Hydromorphone HCl 0.5 mg 03/29/20 17:12 03/29/20 17:32 Dilaudid IM 03/29/20 17:13 0.5 mg ONETIME ONE Administration Hydromorphone HCl 0.5 mg 03/29/20 17:52 03/29/20 18:12 Dilaudid IM 03/29/20 17:53 0.5 mg ONETIME ONE Administration Ketorolac Tromethamine 60 mg 03/29/20 17:55 03/29/20 18:12 Toradol IM 03/29/20 17:56 60 mg ONETIME ONE Administration Lorazepam 1 mg 03/29/20 18:37 03/29/20 18:45 Ativan IM 03/29/20 18:38 1 mg ONETIME ONE Administration Orphenadrine Citrate 100 mg 03/29/20 17:12 03/29/20 17:32 Norflex PO 03/29/20 17:13 100 mg ONETIME ONE Administration Oxycodone/Acetaminophen 1 tab 03/29/20 19:17 03/29/20 19:26 Percocet 325-5 Mg PO 03/29/20 19:18 1 tab ONETIME ONE Administration - Re-Assessments/Exams Free Text/Narrative Re-Assessment/Exam: 03/29/20 17:20 Patient presents to the ED for evaluation of her right lower leg pain. We will give her a 0.5 mg IM injection of Dilaudid for ongoing pain management, along with 100 mg p.o. Norflex for suspected muscle spasm. I am hopeful we can get the patient's pain under control, I may consult her orthopedic provider for further recommendations. 03/29/20 18:09 Was able to contact the on-call orthopedist, Dr. Souza at [facility]. He states that pain is fairly subjective, and if there are no major concerns or physical findings, to treat her pain and have her follow-up with Dr. Crow either tomorrow or sometime on Thursday. 03/29/20 18:37 Patient still reports she is not having good pain relief, when I walk into the room, she is resting quietly on the cot and checking her phone but when I talk with her, she appears to be in more pain and a little hysterical. We will try some Ativan as well to see if this does not help relieve some of her anxiety. 03/29/20 19:21 Patient has been increasingly rude to staff an personnel. I do believe she has unrealistic pain goals. Running out of ideas to try with her. Departure - Departure Time of Disposition: 20:13 Disposition: Home, Self-Care 01 Condition: Fair Clinical Impression: Pain following surgery or procedure - Discharge Information *PRESCRIPTION DRUG MONITORING PROGRAM REVIEWED*: Yes *COPY OF PRESCRIPTION DRUG MONITORING REPORT IN PATIENT LIAM: No Prescriptions: Orphenadrine [Norflex] 100 mg PO BID PRN #20 tab PRN Reason: Spasms oxyCODONE HCl/Acetaminophen [Percocet 10-325 mg Tablet] 1 each PO Q6HR #20 tablet Instructions: Pain Relief Before and After Surgery Referrals: Brittany Marcos MD [Primary Care Provider] - Forms: ED Department Discharge Additional Instructions: You were evaluated in the ER today for your foot pain after your surgery. You were given quite a few different pain medications, and we did seem to get your pain somewhat under control. You do have been provided with a prescription for oxycodone 10/325 mg, please use 1 tablet every 6 hours as needed for further pain relief. Do not continue to take the hydrocodone if you are going to take the oxycodone, I recommend you take the hydrocodone to the pharmacy and have them destroyed if they are not providing you with pain relief. Do not drive while taking these medications. You were given a prescription for Norflex as well for suspected muscle spasms in the legs. Please take 1 tablet 2 times a day as needed for further muscle spasms. Highly and strongly recommend you follow-up with your orthopedic surgeon tomorrow, for ongoing management and to make them aware of the amount of pain that you are in. You may take 600 mg ibuprofen every 6 hours as well, unless told otherwise by your orthopedic surgeon to not take these. Do not exceed 3200 mg ibuprofen in a 24-hour time span. Please use caution, if you are using the aspirin on a daily basis, a combination of these 2 medications can put you at higher risk for GI bleed. Sepsis Event Note (ED) - Evaluation Sepsis Screening Result: No Definite Risk - Focused Exam Vital Signs: Vital Signs Temp Pulse Resp BP Pulse Ox 03/29/20 17:06 97.3 F 93 20 116/80 97
[2020-03-29] MEDS ORDERED: Ketorolac 60 MG/2 ML SDV IM ONE (17:55)
[2020-03-29] MEDS ORDERED: LORazepam 2 MG/ML SDV IM ONE (18:37)
[2020-03-29] MEDS ORDERED: Acetaminophen/oxyCODONE 325-5 MG Tab PO ONE (19:17)
== END 2020-03-29 20:35 | disposition home or self-care (01) ==
LOC: SUPCPDRO 16:44 → JD.ED 16:44
DX: G89.18 Other acute postprocedural pain (principal); F41.9 Anxiety disorder, unspecified; I10 Essential (primary) hypertension; F32.9 Major depressive disorder, single episode, unspecified; M19.90 Unspecified osteoarthritis, unspecified site; F17.210 Nicotine dependence, cigarettes, uncomplicated; Z79.82 Long term (current) use of aspirin; Z91.030 Bee allergy status; Z88.8 Allergy status to other drugs, medicaments and biological substances; Z79.899 Other long term (current) drug therapy
CPT/HCPCS: 96372; 99283; A9270; J1170; J1885; J2060; 99284

== ENCOUNTER 2022-12-25 11:52 | Emergency (ER) | payer SELFPAY ==
[2022-12-25] MEDS ORDERED: Sodium Chloride 0.9% 10 ML Syringe FLUSH PRN ×2 (12:26→12:35)
[2022-12-25] MEDS ORDERED: Ondansetron 4 MG/2 ML SDV IVPUSH ONE (12:27)
[2022-12-25] MEDS ORDERED: HYDROmorphone 0.5 MG/0.5 ML Syringe IVPUSH ONE (12:27)
[2022-12-25 12:29] VITALS: BP 147/97; PULSE 70
[2022-12-25] MEDS ORDERED: Iopamidol 612 MG/ML 100 ML Bottle IVPUSH ONE (12:35)
[2022-12-25 12:56] LABS: BASOPHILS ABSOLUTE AUTO 0.1 K/mm3 (0.0-0.2); EOSINOPHILS ABSOLUTE AUTO 0.2 K/mm3 (0.0-0.4); EOSINOPHILS PERCENT AUTO 2.2 % (0.0-6.0); HEMATOCRIT 45.7 % (37.0-47.0); HEMOGLOBIN 15.8 gm/dl (12.0-16.0); IMMATURE GRAN ABSOLUTE AUTO 0.03 K/mm3 (0.00-0.05); IMMATURE GRAN PERCENT AUTO 0.4 % (0.0-0.4); LYMPHOCYTES ABSOLUTE AUTO 1.6 K/mm3 (1.0-4.8); LYMPHOCYTES PERCENT AUTO 20.5 % (24.0-44.0); MEAN CORPUSCULAR HEMOGLOBIN 36.8 pg (28.0-32.0); MEAN CORPUSCULAR HGB CONC 34.6 g/dl (32.0-36.0); MEAN CORPUSCULAR VOLUME 106.5 fl (83.0-99.0); MONOCYTES ABSOLUTE AUTO 0.8 K/mm3 (0.0-0.8); MONOCYTES PERCENT AUTO 10.4 % (0.0-8.0); NEUTROPHILS ABSOLUTE AUTO 5.1 K/mm3 (1.8-7.7); NEUTROPHILS PERCENT AUTO 65.5 % (41.0-71.0); PLATELET COUNT,PLT 221 K/mm3 (150-400); RED BLOOD CELL COUNT 4.29 M/mm3 (4.10-5.30)
[2022-12-25 13:23] LABS: A/G RATIO 0.9 (1-2); ALBUMIN 3.6 g/dl (3.4-5.0); ANION GAP 10.4 (5-15); BILIRUBIN TOTAL 0.4 mg/dL (0.2-1.0); C-REACTIVE PROTEIN 1.5 mg/dL (<1.0); CALCIUM 9.7 mg/dL (8.5-10.1); EST CRCL DRUG DOSING (CG) 62.61 mL/min; POTASSIUM,K 4.4 mEq/L (3.5-5.1); PROTEIN TOTAL,TP 7.5 g/dl (6.4-8.2)
== END 2022-12-25 14:35 | disposition home or self-care (01) ==
LOC: JD.ED 11:52
DX: L03.116 Cellulitis of left lower limb (principal); I10 Essential (primary) hypertension; Z91.030 Bee allergy status; Z88.8 Allergy status to other drugs, medicaments and biological substances
CPT/HCPCS: 36415; 73701; 80053; 85025; 86140; 96374; 96375; 99284; J1170; J2405; J3490; Q9967

== ENCOUNTER 2023-01-01 11:15 | Day surgery (SDC) | payer SELFPAY ==
[2023-01-01] MEDS ORDERED: Propofol 200 MG/20 ML SDV ONE ×2 (13:55→14:55)
[2023-01-01] MEDS ORDERED: fentaNYL 100 MCG/2 ML SDV ONE ×2 (13:55→15:00)
[2023-01-01] MEDS ORDERED: Midazolam 1 MG/ML 2 ML SDV ONE (13:55)
[2023-01-01] MEDS ORDERED: Lidocaine 1% 30 ML SDV ONE (14:26)
[2023-01-01] MEDS ORDERED: Bupivacaine 0.5%/EPINEPHrine 1:200,000 50 ML MDV ONE (14:26)
[2023-01-01] MEDS ORDERED: Ketamine 500 mg/10 ML MDV ONE (14:34)
[2023-01-01] MEDS ORDERED: ceFAZolin 2 GM Vial ONE (14:45)
[2023-01-01] MEDS ORDERED: Lactated Ringers 1,000 ML ONE (14:55)
[2023-01-01] MEDS ORDERED: Lactated Ringers 1,000 ML IV SCH (15:15)
[2023-01-01] MEDS ORDERED: oxyCODONE 5 MG Tab PO ONE (16:05)
[2023-01-01 18:26] VITALS: BP 127/78; PULSE 68
== END 2023-01-01 16:45 | disposition home or self-care (01) ==
LOC: JD.SDS 11:15
PROVIDERS: ATTEND Surgery
DX: L97.229 Non-pressure chronic ulcer of left calf with unspecified severity (principal); I96 Gangrene, not elsewhere classified; L90.5 Scar conditions and fibrosis of skin; L08.89 Other specified local infections of the skin and subcutaneous tissue; F41.9 Anxiety disorder, unspecified; F98.8 Other specified behavioral and emotional disorders with onset usually occurring in childhood and adolescence; G89.29 Other chronic pain; F32.A Depression, unspecified; I10 Essential (primary) hypertension; G47.00 Insomnia, unspecified; G47.33 Obstructive sleep apnea (adult) (pediatric); Z88.8 Allergy status to other drugs, medicaments and biological substances; Z79.899 Other long term (current) drug therapy; F17.210 Nicotine dependence, cigarettes, uncomplicated
CPT/HCPCS: 11042; A9270; J0690; J2250; J2704; J3010; J3490; J7030; J7120; 00400

== ENCOUNTER 2023-01-03 20:59 | Emergency (ER) | payer SELFPAY ==
[2023-01-03] MEDS ORDERED: Morphine 2 MG/ML SYRINGE IM ONE (22:27)
[2023-01-03 23:27] VITALS: BP 132/59; PULSE 64
== END 2023-01-03 23:20 | disposition home or self-care (01) ==
LOC: JD.ED 20:59
DX: Z48.01 Encounter for change or removal of surgical wound dressing (principal); I10 Essential (primary) hypertension; F17.210 Nicotine dependence, cigarettes, uncomplicated; Z86.16 Personal history of COVID-19; Z91.030 Bee allergy status; Z88.8 Allergy status to other drugs, medicaments and biological substances
CPT/HCPCS: 96372; 99282; J2270